=== PATIENT | male | born 1950 | race Caucasian/White ===

== ENCOUNTER → 2016-04-20 | Outpatient (CLI) | payer OTHER ==
--- NOTE | 2016-04-20 11:24 | US ---
Exam: LOWER EXTREMITY VENOUS INSUFFICIENCY DATE: 04/20/2016. HISTORY: 66-year-old male with venous insufficiency. TECHNIQUE: Duplex Doppler ultrasound examination of the bilateral lower extremities. FINDINGS: SIDE PERFORMED: Bilateral 1) Color flow is present and patency is documented in the following vessels. No DVT or SVT is noted . ? EIV ? Common Femoral Vein ? Deep Femoral Vein ? Femoral Vein ? Popliteal Vein ? Greater Saph Vein ? Upper Small Saph Vein 2) There is venous reflux noted at the following venous levels: None IMPRESSION: 1. No evidence for DVT in the bilateral lower extremities imaged from the groin to the knees. 2. No venous reflux along the imaged levels.
--- NOTE | 2016-04-25 11:00 | P.ARTDOP ---
Arterial Doppler LOWER EXTREMITY ARTERIAL DOPPLER: DATE OF SERVICE: 04/20/2016 Reason for study: Venous insufficiency. Doppler waveforms: Multiphasic bilaterally throughout. Pulse volume recording: Normal configuration to the ankle. Metatarsal and digit on the right are monophasic to flat line. Pressure gradients: None. Ankle-brachial indices: Greater than 1 bilaterally. Toe pressures: [] on the right, [] on the left Impression: Studies from the ankle and above. Are normal.
== END | disposition home or self-care (01) ==
LOC: RADUSWWP 08:48
PROVIDERS: ATTEND Physician Assistant
DX: I87.2 Venous insufficiency (chronic) (peripheral) (principal)
CPT/HCPCS: 93923; 93970

== ENCOUNTER → 2016-07-27 | Outpatient (CLI) | payer OTHER ==
[2016-07-27 13:25] LABS: ALT 33 U/L (21-72); AST 21 U/L (17-59); Alkaline Phosphatase 91 U/L (38-126); Anion Gap 10 mmol/L; Blood Urea Nitrogen 32 mg/dL (9-20); Calcium 8.8 mg/dL (8.4-10.2); Carbon Dioxide 28 mmol/L (22-30); Chloride 104 mmol/L (98-107); Glucose 172 mg/dL (74-99); Non-African American GFR(MDRD) 55 (>60 ml/min/1.73 sqM); Sodium 142 mmol/L (137-145); Total Bilirubin 0.5 mg/dL (0.2-1.3); Total Protein 6.9 g/dL (6.3-8.2)
== END | disposition home or self-care (01) ==
LOC: LABWHC1 12:23
PROVIDERS: ATTEND Internal Medicine Cardiovascular Disease
DX: I25.10 Atherosclerotic heart disease of native coronary artery without angina pectoris (principal); R55 Syncope and collapse
CPT/HCPCS: 36415; 80053; 83880

== ENCOUNTER 2016-08-11 06:46 | Inpatient (IN) | payer MEDICARE, OTHER ==
--- NOTE | 2016-08-11 07:40 | ED ---
General Adult HPI - General Chief complaint: Dizziness Stated complaint: Low heart rate Time Seen by Provider: 08/11/16 07:15 Source: patient, RN notes reviewed Mode of arrival: ambulatory Limitations: no limitations - History of Present Illness Initial comments: Is a 66-year-old male who presents to the emergency department complaining of being lightheaded over the last few days. Patient states he is also noted when he takes his blood pressure that is heart rate is been in the 40s which is something new for him. Patient states couple days ago he got lightheaded and fell over. Patient states she was uninjured at that time but he continues to have multiple episodes of lightheadedness. Patient denies any chest pain patient denies any palpitations. Patient denies sensing that is heart is slow. Patient denies any shortness of breath or difficulty breathing. Patient denies any headache patient denies numbness weakness. Patient denies any recent fever chills or cough. Patient denies any abdominal pain. Patient denies nausea vomiting or diarrhea. - Related Data Home Medications Medication Instructions Recorded Confirmed Unable To Assess [Unable to Assess] 08/23/14 07/02/15 Allergies Allergy/AdvReac Type Severity Reaction Status Date / Time No Known Allergies Allergy Verified 07/02/15 08:39 Review of Systems ROS Statement: Those systems with pertinent positive or pertinent negative responses have been documented in the HPI. ROS Other: All systems not noted in ROS Statement are negative. Past Medical History Past Medical History: Atrial Fibrillation, COPD, Diabetes Mellitus, Hyperlipidemia, Hypertension History of Any Multi-Drug Resistant Organisms: None Reported Past Surgical History: Appendectomy, Heart Catheterization With Stent Past Psychological History: No Psychological Hx Reported, PTSD Smoking Status: Current every day smoker Past Alcohol Use History: None Reported Past Drug Use History: None Reported General Exam - General Exam Comments Initial Comments: GENERAL: Patient is well-developed and well-nourished. Patient is nontoxic and well- hydrated and is in no acute distress. ENT: Neck is soft and supple. No significant lymphadenopathy is noted. Oropharynx is clear. Moist mucous membranes. Neck has full range of motion without eliciting any pain. EYES: The sclera were anicteric and conjunctiva were pink and moist. Extraocular movements were intact and pupils were equal round and reactive to light. Eyelids were unremarkable. PULMONARY: Unlabored respirations. Good breath sounds bilaterally. No audible rales rhonchi or wheezing was noted. CARDIOVASCULAR: Patient's heart rate is a 45 bpm ABDOMEN: Soft and nontender with normal bowel sounds. No palpable organomegaly was noted. There is no palpable pulsatile mass. SKIN: Skin is clear with no lesions or rashes and otherwise unremarkable. NEUROLOGIC: Patient is alert and oriented x3. Cranial nerves II through XII are grossly intact. Motor and sensory are also intact. Normal speech, volume and content. Symmetrical smile. MUSCULOSKELETAL: Normal extremities with adequate strength and full range of motion. No lower extremity swelling or edema. No calf tenderness. LYMPHATICS: No significant lymphadenopathy is noted PSYCHIATRIC: Normal psychiatric evaluation. Normal interpersonal interactions appears functionally intact in deals appropriately with others. No signs of depression. Limitations: no limitations Course Vital Signs 08/11/16 08/11/16 08/11/16 06:49 07:27 07:28 Temperature 97.6 F Pulse Rate 43 L 42 L Pulse Rate [ 42 L Wireless Architect ] Respiratory 18 18 Rate Blood Pressure 156/68 160/68 O2 Sat by Pulse 99 98 Oximetry 08/11/16 08:31 Temperature Pulse Rate 46 L Pulse Rate [ Wireless Architect ] Respiratory 18 Rate Blood Pressure 152/70 O2 Sat by Pulse 100 Oximetry Medical Decision Making - Medical Decision Making EKG shows sinus bradycardia with occasional PVC at 42 bpm [place] interval is 184 QRS is 106 QT interval 532 QTC is 444. His EKG shows some T-wave inversions in leads V4 V5 and V6 as well as 1 and aVL Patient's heart rate dipped down to 39 at times but he remained asymptomatic as long as he is lying in bed. I spoke with Dr. Dhillon and she agreed to admit the patient I consult to cardiology. - Lab Data Result diagrams: 08/11/16 07:25 08/11/16 07:25 Lab Results 08/11/16 08/11/16 08/11/16 Range/Units 07:25 07:25 07:25 WBC 9.3 (3.8-10.6) k/uL RBC 4.92 (4.30-5.90) m/uL Hgb 14.6 (13.0-17.5) gm/dL Hct 44.9 (39.0-53.0) % MCV 91.3 (80.0-100.0) fL MCH 29.7 (25.0-35.0) pg MCHC 32.6 (31.0-37.0) g/dL RDW 14.7 (11.5-15.5) % Plt Count 249 (150-450) k/uL Neutrophils % 75 % Lymphocytes % 17 % Monocytes % 6 % Eosinophils % 0 % Basophils % 0 % Neutrophils # 6.9 (1.3-7.7) k/uL Lymphocytes # 1.6 (1.0-4.8) k/uL Monocytes # 0.5 (0-1.0) k/uL Eosinophils # 0.0 (0-0.7) k/uL Basophils # 0.0 (0-0.2) k/uL PT (9.0-12.0) sec INR (<1.1) APTT (22.0-30.0) sec Sodium 142 (137-145) mmol/L Potassium 4.4 (3.5-5.1) mmol/L Chloride 105 (98-107) mmol/L Carbon Dioxide 26 (22-30) mmol/L Anion Gap 11 mmol/L BUN 33 H (9-20) mg/dL Creatinine 1.22 (0.66-1.25) mg/dL Est GFR (MDRD) Af Amer >60 (>60 ml/min/1.73 sqM) Est GFR (MDRD) Non-Af 59 (>60 ml/min/1.73 sqM) Glucose 76 (74-99) mg/dL Calcium 9.4 (8.4-10.2) mg/dL Magnesium 2.0 (1.6-2.3) mg/dL Total Bilirubin 0.7 (0.2-1.3) mg/dL AST 26 (17-59) U/L ALT 33 (21-72) U/L Alkaline Phosphatase 73 (38-126) U/L Total Creatine Kinase 65 (55-170) U/L CK-MB (CK-2) 0.9 (0.0-2.4) ng/mL CK-MB (CK-2) Rel Index 1.4 Troponin I <0.012 (0.000-0.034) ng/mL NT-Pro-B Natriuret Pep pg/mL Total Protein 7.4 (6.3-8.2) g/dL Albumin 4.1 (3.5-5.0) g/dL 08/11/16 08/11/16 Range/Units 07:25 07:25 WBC (3.8-10.6) k/uL RBC (4.30-5.90) m/uL Hgb (13.0-17.5) gm/dL Hct (39.0-53.0) % MCV (80.0-100.0) fL MCH (25.0-35.0) pg MCHC (31.0-37.0) g/dL RDW (11.5-15.5) % Plt Count (150-450) k/uL Neutrophils % % Lymphocytes % % Monocytes % % Eosinophils % % Basophils % % Neutrophils # (1.3-7.7) k/uL Lymphocytes # (1.0-4.8) k/uL Monocytes # (0-1.0) k/uL Eosinophils # (0-0.7) k/uL Basophils # (0-0.2) k/uL PT 27.2 H (9.0-12.0) sec INR 2.8 (<1.1) APTT 31.3 H (22.0-30.0) sec Sodium (137-145) mmol/L Potassium (3.5-5.1) mmol/L Chloride (98-107) mmol/L Carbon Dioxide (22-30) mmol/L Anion Gap mmol/L BUN (9-20) mg/dL Creatinine (0.66-1.25) mg/dL Est GFR (MDRD) Af Amer (>60 ml/min/1.73 sqM) Est GFR (MDRD) Non-Af (>60 ml/min/1.73 sqM) Glucose (74-99) mg/dL Calcium (8.4-10.2) mg/dL Magnesium (1.6-2.3) mg/dL Total Bilirubin (0.2-1.3) mg/dL AST (17-59) U/L ALT (21-72) U/L Alkaline Phosphatase (38-126) U/L Total Creatine Kinase (55-170) U/L CK-MB (CK-2) (0.0-2.4) ng/mL CK-MB (CK-2) Rel Index Troponin I (0.000-0.034) ng/mL NT-Pro-B Natriuret Pep 449 pg/mL Total Protein (6.3-8.2) g/dL Albumin (3.5-5.0) g/dL Disposition Clinical Impression: Bradycardia Disposition: ADMITTED IP TO THIS HOSP Referrals: Suraj Wallace DO [Primary Care Provider] - 1-2 days Time of Disposition: 09:49
--- NOTE | 2016-08-11 08:04 | XR ---
EXAMINATION TYPE: XR chest 2V DATE OF EXAM: 08/11/2016 8:00 AM COMPARISON: 06/12/2013 HISTORY: 66-year-old male with chest pain TECHNIQUE: Frontal and lateral views FINDINGS: Heart is upper limits of normal in size. Aorta within normal limits. Perihilar densities and increase diffuse interstitial densities. No fracture consolidation or significant pleural effusion. IMPRESSION: Borderline heart size with increased perihilar and interstitial densities. Correlate for mild CHF paula hong bronchitis or atypical pneumonias.
[2016-08-11 08:10] LABS: Basophils % (A) 0 %; CH 29.5; CHCM 32.5; Eosinophils % (A) 0 %; HCT 44.9 % (39.0-53.0); HDW 2.51; HGB 14.6 gm/dL (13.0-17.5); Luc % (Auto) 2; Lymphocytes # (A) 1.6 k/uL (1.0-4.8); Lymphocytes % (A) 17 %; MCH 29.7 pg (25.0-35.0); MCHC 32.6 g/dL (31.0-37.0); MCV 91.3 fL (80.0-100.0); Mean Platelet Volume 7.8; Monocytes # (A) 0.5 k/uL (0-1.0); Monocytes % (A) 6 %; Neutrophils # (A) 6.9 k/uL (1.3-7.7); Neutrophils % (A) 75 %; RBC 4.92 m/uL (4.30-5.90); RDW 14.7 % (11.5-15.5); WBC 9.3 k/uL (3.8-10.6); WBC (Perox) 8.88
[2016-08-11 08:23] LABS: INR 2.8 (<1.1); Partial Thromboplastin Time 31.3 sec (22.0-30.0); Prothrombin Time 27.2 sec (9.0-12.0)
[2016-08-11 08:30] LABS: ALT 33 U/L (21-72); AST 26 U/L (17-59); Alkaline Phosphatase 73 U/L (38-126); Anion Gap 11 mmol/L; Blood Urea Nitrogen 33 mg/dL (9-20); Calcium 9.4 mg/dL (8.4-10.2); Carbon Dioxide 26 mmol/L (22-30); Chloride 105 mmol/L (98-107); Glucose 76 mg/dL (74-99); Non-African American GFR(MDRD) 59 (>60 ml/min/1.73 sqM); Sodium 142 mmol/L (137-145); Total Bilirubin 0.7 mg/dL (0.2-1.3); Total Protein 7.4 g/dL (6.3-8.2)
[2016-08-11 08:39] LABS: Potassium 4.4 mmol/L (3.5-5.1)
[2016-08-11 09:03] LABS: Creatine Kinase 65 U/L (55-170)
[2016-08-11 09:17] LABS: Creatine Kinase MB 0.9 ng/mL (0.0-2.4); Troponin I <0.012 ng/mL (0.000-0.034)
[2016-08-11] MEDS ORDERED: NITROGLYCERIN SL TABS 0.4 MG TAB SUBLINGUAL PRN (09:49)
[2016-08-11 10:44] LABS: Glucose,Whole Blood 54 mg/dL (75-99)
[2016-08-11 11:28] VITALS: BMI 27.3
[2016-08-11 11:30] LABS: Glucose,Whole Blood 65 mg/dL (75-99)
[2016-08-11 11:34] LABS: Creatine Kinase 58 U/L (55-170)
[2016-08-11 11:46] LABS: Creatine Kinase MB 0.9 ng/mL (0.0-2.4); Troponin I <0.012 ng/mL (0.000-0.034)
[2016-08-11 11:49] LABS: Glucose,Whole Blood 79 mg/dL (75-99)
--- NOTE | 2016-08-11 16:18 | P.HPIM ---
History of Present Illness H&P Date: 08/11/16 This is a 66-year-old gentleman with history of hypertension, diabetes mellitus Atrial fibrillation CAD comes in the hospital with intermittent complaints of lightheadedness. Patient does not is usually seen at the [facility] Patient apparently underwent a PCI/PTCA 2 years ago at the [facility]. Patient was started on metoprolol succinate 125 mg daily according to verbal report in the recent few weeks patient has had intermittent tachycardia and bradycardia heart rate into the 40s patient was referred to a work environment safety inspector in town for further workup. Patient apparently underwent a stress test over week ago which she was told it was negative Due to the heart rate being erratic with tachybradycardia syndrome a pacemaker was also discussed with him in the past Patient states that he has taken his medications yesterday morning this a.m. patient was lightheaded hence was brought into the emergency room No chest pain fevers chills urinary urgency frequency nausea vomiting or diarrhea is reported Review of Systems All systems: negative (Noted in HPI) Past Medical History Past Medical History: Atrial Fibrillation, COPD, Diabetes Mellitus, Hyperlipidemia, Hypertension History of Any Multi-Drug Resistant Organisms: None Reported Past Surgical History: Appendectomy, Heart Catheterization With Stent Past Anesthesia/Blood Transfusion Reactions: No Reported Reaction Date of Last Stent Placement:: 3 STENTS LAST ONE ABOUT 2 YEARS AGO AT [facility]" Past Psychological History: No Psychological Hx Reported, PTSD Smoking Status: Current every day smoker Past Alcohol Use History: None Reported Past Drug Use History: None Reported - Past Family History Mother Family Medical History: Congestive Heart Failure (CHF) Medications and Allergies Home Medications Medication Instructions Recorded Confirmed Type Amiodarone [Cordarone] 200 mg PO DAILY 08/11/16 08/11/16 History Atorvastatin [Lipitor] 80 mg PO HS 08/11/16 08/11/16 History Clopidogrel [Plavix] 75 mg PO DAILY 08/11/16 08/11/16 History Hydrochlorothiazide [Hydrodiuril] 25 mg PO DAILY 08/11/16 08/11/16 History Insulin Glargine [Lantus] 25 unit SQ HS 08/11/16 08/11/16 History Lisinopril [Prinivil] 20 mg PO DAILY 08/11/16 08/11/16 History Metoprolol Succinate (ER) [Toprol 125 mg PO DAILY 08/11/16 08/11/16 History Xl] Warfarin Sodium [Coumadin] 2.5 mg PO MOTUTHFRSA 08/11/16 08/11/16 History Warfarin [Coumadin] 5 mg PO SUWE 08/11/16 08/11/16 History glipiZIDE [Glucotrol] 10 mg PO QID 08/11/16 08/11/16 History Allergies Allergy/AdvReac Type Severity Reaction Status Date / Time No Known Allergies Allergy Verified 08/11/16 13:32 Physical Exam Vitals: Vital Signs Temp Pulse Pulse Pulse Resp BP BP 08/11/16 12:33 41 L 44 L 16 149/79 08/11/16 10:56 97.4 F L 42 L 16 154/82 08/11/16 10:51 08/11/16 10:10 97.3 F L 45 L 18 132/61 08/11/16 08:31 46 L 18 152/70 08/11/16 07:28 42 L 08/11/16 07:27 42 L 18 160/68 08/11/16 06:49 97.6 F 43 L 18 156/68 Pulse Ox 08/11/16 12:33 93 L 08/11/16 10:56 95 08/11/16 10:51 95 08/11/16 10:10 100 08/11/16 08:31 100 08/11/16 07:28 08/11/16 07:27 98 08/11/16 06:49 99 Intake and Output 08/11/16 08/11/16 08/11/16 06:59 14:59 22:59 Intake Total 640 Balance 640 Intake: Oral 640 Other: # Voids 1 1 Weight 88.904 kg 88.9 kg Patient Weight 08/12/16 06:59 Weight 88.9 kg Physical exam Gen. appearance oriented 3 in no distress Neck is supple no JVD Lungs good air entry clear to auscultation no rhonchi or wheezing Heart S1-S2 heard no murmurs, bradycardic Abdomen is soft nontender no organomegaly bowel sounds are intact Neurologically cranial nerves II-12 grossly intact no focal motor or sensory deficits noted Skin no abnormalities appreciated Results CBC & Chem 7: 08/11/16 07:25 08/11/16 07:25 Labs: Abnormal Lab Results - Last 24 Hours (Table) 08/11/16 08/11/1617 Range/Units 07:25 07:25 10:40 PT 27.2 H (9.0-12.0) sec APTT 31.3 H (22.0-30.0) sec BUN 33 H (9-20) mg/dL POC Glucose (mg/dL) 54 L (75-99) mg/dL 08/11/16 Range/Units 11:20 PT (9.0-12.0) sec APTT (22.0-30.0) sec BUN (9-20) mg/dL POC Glucose (mg/dL) 65 L (75-99) mg/dL Thrombosis Risk Factor Assmnt - Choose All That Apply Each Factor Represents 1 point: Abnormal pulmonary function (COPD) Each Risk Factor Represents 2 Points: Age 61-74 years Thrombosis Risk Factor Assessment Total Risk Factor Score: 3 Thrombosis Risk Factor Assessment Level: Moderate Risk Assessment and Plan Plan: Tachybradycardia syndrome in a patient with atrial fibrillation #2 CAD per graph #3 diabetes mellitus type 2 #4 hypertension #5 history of tobacco use plan Hold off on amiodarone and metoprolol. Restart home medications. Cardiology consultation. Patient underwent recent stress test will defer to the work environment safety inspector in regards to timing of physical chamber pacemaker for tachybradycardia syndrome Repeat PT/INR We'll hold on Coumadin at this time
[2016-08-11] MEDS ORDERED: WARFARIN 5 MG TAB PO SCH (16:30)
[2016-08-11 16:41] LABS: Creatine Kinase 54 U/L (55-170)
[2016-08-11 16:43] LABS: Glucose,Whole Blood 122 mg/dL (75-99)
--- NOTE | 2016-08-11 16:50 | P.PCN ---
Preoperative Diagnosis: Impression Recurrent dizzy spells when he gets up and walks around in the morning. Denies any palpitations 1 episode of a fall and he does not remember if he actually had a syncopal spell or not. He does not remember the details of that event CAD status post coronary stenting almost 2 years back Ischemic cardio myopathy left ventricular ejection fraction 40% with inferior posterior hypokinesis Stress test did not show any evidence for ischemia or fixed defect was noted in the inferior wall Sinus bradycardia in the high 40s during the daytime while the patient is awake Patient is not orthostatic on examination Atrial fibrillation with RVR, treated with amiodarone in the [facility] in [place] currently on 200 mg a day On guideline directed medical treatment for cardiomyopathy with beta blockers and kaye inhibitors adult-onset diabetes him a on medical treatment Plan I had a detailed discussion with the patient regarding the differential diagnosis which includes orthostatic changes except extubated by the underlying diabetic condition and diabetic autonomic neuropathy, sick sinus syndrome and sinus bradycardia, presence of ischemic cardiac myopathy the left radical ejection fraction of 40% with inferior wall hypokinesis and PVCs on telemetry TSH level Reduce amiodarone dose to 100 mg a day Consider an EP study for risk stratification If ventricular tachycardia is inducible proceed with dual-chamber ICD If patient is noninducible for VT that her dual-chamber pacemaker but I would definitely still implant an ICD lead instead of a standard RV pacing lead, for future need for ICD See rest of the dictation separately Postoperative Diagnosis: Procedure(s) Performed: Implants: Indications for Procedure: Operative Findings: Description of Procedure:
[2016-08-11 16:54] LABS: Creatine Kinase MB 0.7 ng/mL (0.0-2.4); Troponin I <0.012 ng/mL (0.000-0.034)
[2016-08-11] MEDS: glipiZIDE 10 MG TAB PO SCH ×2 (17:13→21:00)
--- NOTE | 2016-08-11 17:19 | CONS ---
A 66-year-old male patient who presents with recurrent dizzy spells. The patient has been experiencing dizzy spells for some time. He may have had a fall, although he does not remember the details and may have had a syncopal spell in the past. He was told that he may need a pacemaker because sinus bradycardia was noted. He denies any chest discomfort. No heaviness, tightness. No breathing trouble. Past history of diabetes, adult-onset on medications; dyslipidemia, hypertension, coronary disease, inferior posterior VA, status post stenting 2 years back in the [facility], history of paroxysmal atrial fibrillation being treated with amiodarone for quite a few years from the [facility], history of CVA, history of carotid disease, waiting to see a vascular surgeon. REVIEW OF SYSTEMS: No fever, chills, rigors. No cough or expectoration. No nausea, vomiting or the diarrhea. No hematuria or dysuria. No strokes or seizures. No skin lesions or musculoskeletal complaints. His medications at home include: 1. Amiodarone 200 mg a day. 2. Aspirin 81 mg a day. 3. Atorvastatin. 4. Glipizide. 5. Plavix. 6. Warfarin. However, he states that he takes only Plavix and warfarin and does not take aspirin. 7. He is on metoprolol succinate 125 mg p.o. daily. 8. Lisinopril 20 mg daily and 9. Hydrochlorothiazide 25 mg daily. On examination, his blood pressure is 137/72 mmHg. He is not orthostatic. Heart rate is as low as 42 beats a minute while awake. Afebrile, 97.4 degrees Fahrenheit. Head and neck are normal. Heart sounds are normal. Lungs are clear on auscultation. Extremities are warm. No edema. A 2-D echo from the office shows normal RV size and function, mildly dilated left atrium, left ventricular ejection fraction of 40%, inferoposterior hypokinesis. Stress test shows fixed defects in the inferolateral segment with a prior infarct without any reversible ischemia. PCP, impression and plan on a separate dictation.
[2016-08-11 20:56] LABS: Glucose,Whole Blood 109 mg/dL (75-99)
[2016-08-11] MEDS: ATORVASTATIN 80 MG TAB PO SCH (21:00)
[2016-08-11] MEDS: INSULIN GLARGINE 100 UNIT/ML 10 ML VIAL SQ SCH (21:00)
[2016-08-12 06:01] LABS: Glucose,Whole Blood 69 mg/dL (75-99)
[2016-08-12 06:20] LABS: Glucose,Whole Blood 94 mg/dL (75-99)
[2016-08-12 06:50] LABS: Basophils % (A) 0 %; CH 29.4; CHCM 32.4; Eosinophils # (A) 0.1 k/uL (0-0.7); Eosinophils % (A) 1 %; HCT 44.9 % (39.0-53.0); HDW 2.49; HGB 14.3 gm/dL (13.0-17.5); Luc # (Auto) 0.22; Luc % (Auto) 3; Lymphocytes # (A) 2.5 k/uL (1.0-4.8); Lymphocytes % (A) 31 %; MCHC 31.8 g/dL (31.0-37.0); MCV 91.3 fL (80.0-100.0); Mean Platelet Volume 7.8; Monocytes # (A) 0.6 k/uL (0-1.0); Monocytes % (A) 7 %; Neutrophils # (A) 4.9 k/uL (1.3-7.7); Neutrophils % (A) 59 %; RBC 4.92 m/uL (4.30-5.90); RDW 14.6 % (11.5-15.5); WBC 8.3 k/uL (3.8-10.6); WBC (Perox) 8.14
[2016-08-12 06:52] LABS: INR 2.9 (<1.1); Prothrombin Time 27.7 sec (9.0-12.0)
[2016-08-12 07:05] LABS: ALT 29 U/L (21-72); AST 22 U/L (17-59); Alkaline Phosphatase 71 U/L (38-126); Anion Gap 11 mmol/L; Blood Urea Nitrogen 29 mg/dL (9-20); Calcium 9.4 mg/dL (8.4-10.2); Carbon Dioxide 24 mmol/L (22-30); Chloride 107 mmol/L (98-107); Cholesterol 119 mg/dL (<200); Glucose 58 mg/dL (74-99); HDL Cholesterol 32 mg/dL (40-60); Non-African American GFR(MDRD) >60 (>60 ml/min/1.73 sqM); Potassium 4.6 mmol/L (3.5-5.1); Sodium 142 mmol/L (137-145); Total Bilirubin 0.7 mg/dL (0.2-1.3); Triglycerides 96 mg/dL (<150)
[2016-08-12] MEDS: glipiZIDE 10 MG TAB PO SCH ×4 (08:50→22:31)
[2016-08-12] MEDS: LISINOPRIL 20 MG TAB PO SCH (08:50)
[2016-08-12] MEDS: CLOPIDOGREL 75 MG TAB PO SCH (08:50)
[2016-08-12] MEDS ORDERED: ASPIRIN 325 MG TAB PO SCH (09:00)
[2016-08-12] MEDS: NICOTINE 14MG/24HR PATCH TRANSDERM SCH (11:56)
[2016-08-12 12:10] LABS: Glucose,Whole Blood 101 mg/dL (75-99)
--- NOTE | 2016-08-12 12:12 | PN ---
Mr. Olson is resting comfortably in bed. His heart rates have been in the high 40s and low 50s. He is afebrile, 96.5 degrees Fahrenheit. His blood pressure 136/65 mmHg, pulse ox is normal. He is resting comfortably in bed. We repeated his orthostatic several times and he has no evidence for orthostatic hypotension. Heart sounds are normal. Normal S1, normal S2. No murmur. No gallop. Breath sounds are normal. No rhonchi. No crackles. Abdomen was soft, nontender. Extremities are warm. No edema. IMPRESSION: 1. Recurrent dizzy spells, one prior episode of loss of consciousness. No evidence for orthostatic hypotension. Patient is diabetic. Documented sinus bradycardia in the high 40s and low 50s at rest while awake. 2. Ischemic cardiomyopathy, ejection fraction of 40%, inferior wall scar. 3. Paroxysmal atrial fibrillation with RVR. SUGGEST: He has paroxysmal atrial fibrillation. He also has sick sinus syndrome. He has had syncope and he has had recurrent dizzy spells. He is bradycardiac, but he also has ischemic cardiomyopathy. I had a very detailed discussion with the family members today. Yesterday I had a detailed discussion with the patient. Permanent pacemaker is indicated because of tachybrady syndrome and he has symptomatic sick sinus syndrome. However, he also is on amiodarone. I have reduced the dose of amiodarone to 100 mg p.o. daily. The complicating factor is his ischemic cardiomyopathy with ejection fraction of 40%. I will first perform an EP study. If he has inducible VT I will implant ICD instead. If he has no inducible VT I will implant a dual chamber pacemaker with the RV lead being an ICD lead.
[2016-08-12 12:19] LABS: Hemoglobin A1C 7.2 % (4.2-6.1)
[2016-08-12] MEDS ORDERED: WARFARIN 5 MG TAB PO SCH (16:16)
[2016-08-12 17:31] LABS: Glucose,Whole Blood 83 mg/dL (75-99)
--- NOTE | 2016-08-12 17:57 | P.PN ---
Subjective This is a 66-year-old gentleman with history of hypertension, diabetes mellitus Atrial fibrillation CAD comes in the hospital with intermittent complaints of lightheadedness. Patient does not is usually seen at the [facility] Patient apparently underwent a PCI/PTCA 2 years ago at the [facility]. Patient was started on metoprolol succinate 125 mg daily according to verbal report in the recent few weeks patient has had intermittent tachycardia and bradycardia heart rate into the 40s patient was referred to a mold sander in town for further workup. Patient apparently underwent a stress test over week ago which she was told it was negative Due to the heart rate being erratic with tachybradycardia syndrome a pacemaker was also discussed with him in the past Patient states that he has taken his medications yesterday morning this a.m. patient was lightheaded hence was brought into the emergency room No chest pain fevers chills urinary urgency frequency nausea vomiting or diarrhea is reported 08/12 states to be improved no lightheadedness is reported no other overnight events no additional complaints. Objective - Vital Signs Vital signs: Vital Signs Temp 97.3 F L 08/12/16 16:00 Pulse 40 L 08/12/16 16:00 Resp 18 08/12/16 16:00 BP 178/74 08/12/16 16:00 Pulse Ox 94 L 08/12/16 16:00 Intake & Output 08/11/16 08/12/16 08/12/16 18:59 06:59 18:59 Intake Total 760 20 510 Balance 760 20 510 Weight 88.9 kg 88 kg Intake: IV 20 30 0.9% NS FLUSH 20 10 Invasive Line 1 20 Oral [phone] Other: # Voids 1 1 2 - Constitutional General appearance: Present: no acute distress - EENT Eyes: Present: EOMI, PERRLA - Respiratory Respiratory: bilateral: CTA, negative: dullness, rales, rhonchi - Cardiovascular Rhythm: regular Heart sounds: normal: S1, S2 Abnormal Heart Sounds: Absent: systolic murmur - Gastrointestinal General gastrointestinal: Present: normal bowel sounds, soft. Absent: organomegaly - Neurologic Neurologic: Present: CNII-XII intact. Absent: focal deficits - Musculoskeletal Musculoskeletal: Present: gait normal - Psychiatric Psychiatric: Present: A&O x's 3, appropriate affect - Labs CBC & Chem 7: 08/12/16 05:54 08/12/16 05:54 Labs: Abnormal Lab Results - Last 24 Hours (Table) 08/11/16 08/12/16 08/12/16 Range/Units 20:54 05:54 05:54 PT 27.7 H (9.0-12.0) sec BUN 29 H (9-20) mg/dL Glucose 58 L (74-99) mg/dL POC Glucose (mg/dL) 109 H (75-99) mg/dL Hemoglobin A1c (4.2-6.1) % HDL Cholesterol 32 L (40-60) mg/dL 08/12/16 08/12/16 08/12/16 Range/Units 05:54 05:59 11:49 PT (9.0-12.0) sec BUN (9-20) mg/dL Glucose (74-99) mg/dL POC Glucose (mg/dL) 69 L 101 H (75-99) mg/dL Hemoglobin A1c 7.2 H (4.2-6.1) % HDL Cholesterol (40-60) mg/dL Assessment and Plan Plan: Tachybradycardia syndrome in a patient with atrial fibrillation #2 CAD per graph #3 diabetes mellitus type 2 #4 hypertension #5 history of tobacco use plan Cardiology consultation. Patient underwent recent stress test Ep study and possible dual chamber pacemaker for tachybradycardia syndrome khalif Repeat PT/INR We'll hold on Coumadin at this time
[2016-08-12 21:27] LABS: Glucose,Whole Blood 143 mg/dL (75-99)
[2016-08-12] MEDS: ATORVASTATIN 80 MG TAB PO SCH (22:31)
[2016-08-12] MEDS: INSULIN GLARGINE 100 UNIT/ML 10 ML VIAL SQ SCH (22:34)
[2016-08-13 06:40] LABS: INR 2.2 (<1.1); Prothrombin Time 21.5 sec (9.0-12.0)
[2016-08-13] MEDS: CLOPIDOGREL 75 MG TAB PO SCH (06:51)
[2016-08-13] MEDS: NICOTINE 14MG/24HR PATCH TRANSDERM SCH (09:36)
[2016-08-13] MEDS: LISINOPRIL 20 MG TAB PO SCH (09:36)
[2016-08-13 11:25] LABS: Glucose,Whole Blood 124 mg/dL (75-99)
[2016-08-13] MEDS ORDERED: ceFAZolin 1,000 MG in SODIUM CHLORIDE 0.9% IRRIGATIO 250 ML IRRIGATION ONE (13:00)
[2016-08-13] MEDS ORDERED: ceFAZolin 2 GM in SODIUM CHLORIDE 0.9% 100 ML IVPB ONE (14:00)
[2016-08-13 16:46] LABS: Glucose,Whole Blood 76 mg/dL (75-99)
--- NOTE | 2016-08-13 17:10 | P.PN ---
Subjective This is a 66-year-old gentleman with history of hypertension, diabetes mellitus Atrial fibrillation CAD comes in the hospital with intermittent complaints of lightheadedness. Patient does not is usually seen at the [facility] Patient apparently underwent a PCI/PTCA 2 years ago at the [facility]. Patient was started on metoprolol succinate 125 mg daily according to verbal report in the recent few weeks patient has had intermittent tachycardia and bradycardia heart rate into the 40s patient was referred to a float nurse in town for further workup. Patient apparently underwent a stress test over week ago which she was told it was negative Due to the heart rate being erratic with tachybradycardia syndrome a pacemaker was also discussed with him in the past Patient states that he has taken his medications yesterday morning this a.m. patient was lightheaded hence was brought into the emergency room No chest pain fevers chills urinary urgency frequency nausea vomiting or diarrhea is reported 08/12 states to be improved no lightheadedness is reported no other overnight events no additional complaints. 08/13 doing well no new overnight events Objective - Vital Signs Vital signs: Vital Signs Temp 96.1 F L 08/13/16 11:22 Pulse 114 H 08/13/16 11:22 Resp 18 08/13/16 11:22 BP 118/87 08/13/16 11:22 Pulse Ox 92 L 08/13/16 11:22 Intake & Output 08/12/16 08/13/16 08/13/16 18:59 06:59 18:59 Intake Total 510 690 Output Total 650 Balance 510 40 Intake: IV 30 50 0.9% NS FLUSH 10 30 Invasive Line 1 20 20 Oral 480 640 Output: Urine 650 Other: # Voids 2 1 3 - Constitutional General appearance: Present: no acute distress - EENT Eyes: Present: EOMI, PERRLA - Neck Neck: Present: normal ROM - Respiratory Respiratory: bilateral: CTA, negative: diminished, dullness, rales, rhonchi - Cardiovascular Rhythm: regular Heart sounds: normal: S1, S2 Abnormal Heart Sounds: Absent: systolic murmur - Gastrointestinal General gastrointestinal: Present: normal bowel sounds, soft. Absent: organomegaly - Neurologic Neurologic: Present: CNII-XII intact, focal deficits - Psychiatric Psychiatric: Present: A&O x's 3, appropriate affect - Labs CBC & Chem 7: 08/12/16 05:54 08/12/16 05:54 Labs: Abnormal Lab Results - Last 24 Hours (Table) 08/12/16 08/13/16 08/13/16 Range/Units 20:49 05:45 11:21 PT 21.5 H (9.0-12.0) sec POC Glucose (mg/dL) 143 H 124 H (75-99) mg/dL Assessment and Plan Plan: Tachybradycardia syndrome in a patient with atrial fibrillation #2 CAD per graph #3 diabetes mellitus type 2 #4 hypertension #5 history of tobacco use plan Ep study and possible dual chamber pacemaker for tachybradycardia syndrome khalif Repeat PT/INR moniter overnight await ep procedure
[2016-08-13] MEDS ORDERED: PROPOFOL 10 MG/ML 20 ML VIAL IV ONE (18:31)
[2016-08-13] MEDS ORDERED: MIDAZOLAM 2 MG/2 ML VIAL ONE (18:31)
[2016-08-13] MEDS ORDERED: fentaNYL (PF) 50 MCG/ML 2 ML AMP ONE (18:31)
[2016-08-13] MEDS ORDERED: HYDROmorphone (PF) 1 MG/ML ONE (18:31)
[2016-08-13] MEDS ORDERED: PHENYLEPHRINE-0.9% NACL SYG 1 MG/10 ML SYRINGE ONE (18:31)
[2016-08-13] MEDS ORDERED: diphenhydrAMINE 50 MG/ML 1 ML VIAL ONE (18:31)
[2016-08-13] MEDS ORDERED: SODIUM CHLORIDE 0.9% 1,000 ML IV ONE (18:57)
[2016-08-13] MEDS ORDERED: IODIXANOL 320 MG/ML 100 ML IV ONE (18:57)
[2016-08-13] MEDS ORDERED: LIDOCAINE 2% INJ 20 MG/ML SQ ONE (19:17)
[2016-08-13 20:03] LABS: Glucose,Whole Blood 68 mg/dL (75-99)
[2016-08-13] MEDS ORDERED: LIDOCAINE 1% INJ 10MG/ML (20 ML MDV) SQ ONE (20:08)
[2016-08-13 21:36] LABS: Glucose,Whole Blood 93 mg/dL (75-99)
[2016-08-13] MEDS ORDERED: ACETAMINOPHEN TAB 325 MG TAB PO PRN ×2 (21:56)
[2016-08-13] MEDS ORDERED: HYDROcodone/APAP 5-325MG 1 EACH TAB PO PRN (21:56)
[2016-08-13] MEDS ORDERED: ACETAMINOPHEN IV (For NPO) 1,000 MG in EMPTY BAG 1 BAG IVPB ONE (21:56)
[2016-08-13 21:57] LABS: Glucose,Whole Blood 96 mg/dL (75-99)
[2016-08-13] MEDS: glipiZIDE 10 MG TAB PO SCH ×2 (22:14→22:15)
[2016-08-13] MEDS: INSULIN GLARGINE 100 UNIT/ML 10 ML VIAL SQ SCH (22:16)
--- NOTE | 2016-08-13 22:46 | PCN ---
DATE OF PROCEDURE: Mr. Olson is a 66-year-old male patient with known ischemic cardiomyopathy, ejection fraction of 40%, with occasional PVCs, paroxysmal atrial fibrillation and sick sinus syndrome with bradycardia and dizzy spells. Heart rates in sinus rhythm are in the high 40s while awake. A dual-chamber pacemaker was clinically indicated, but in view of his ischemic cardiomyopathy and inferior wall scar, first an EP study was performed for risk stratification. The patient was brought to the EP lab in a fasting state. Written informed consent was obtained prior to the procedure. The right groin was prepped and draped as per protocol and 2 venous sheaths were placed in the right femoral vein. Via these, diagnostic catheters were placed in the high right atrium ( ) His bundle area and RV. The patient was in atrial fibrillation (organized atrial fibrillation). Catheters were placed in the His bundle. HV interval was 49 ms, QRS 110 ms, QT 333 ms. Burst stimulation was performed from the RV apex. At a pacing cycle length of 220 ms fast ventricular tachycardia with a cycle length of 255 ms was induced. Anti-tachycardia pacing failed to terminate the tachycardia and electrical cardioversion had to be performed to restore a supraventricular rhythm. He remained in atrial fibrillation. All catheters were removed and a decision was made to proceed with a dual-chamber ICD in view of his sick sinus syndrome, paroxysmal atrial fibrillation and easily inducible fast ventricular tachycardia with a right bundle branch block morphology and Q waves in the inferior leads as well as S waves in lead I and V6. Patient tolerated the procedure. FINAL RESULT: Diagnostic EP study revealing normal HV interval and very easily inducible fast ventricular tachycardia at a cycle length of 255 ms that was induced with burst stimulation. PROCEDURE #2: Dual-chamber ICD. The left pectoral area was prepped and draped per protocol. Lidocaine 1% was used for local anesthesia. Intravenous antibiotics were administered. An incision was made in the deltopectoral groove and carried down to the level of the pectoralis muscle. A subfascial pocket was made. Hemostasis was assured. The left axillary vein was accessed at 2 separate points under fluoroscopy, and via appropriate-sized introducer sheaths, 2 leads were positioned in the right heart. The atrial lead was a screw-in lead in the right atrial appendage, [address] [employer], model #2088TC, serial #[id number]. Patient was in atrial fibrillation ( ) at 3.3 mV, pacing impedance of 680 ohms, pacing threshold 0.5 v at 0.5 ms. The RV lead was a single-coil ICD lead positioned in the RV apex. The R waves were 12 mV, pacing impedance 960 ohms, pacing threshold 0.5 v at 0.5 ms. The sheaths were removed. The lead was secured to the underlying pectoralis fascia using 2 non-absorbable sutures. Pocket was irrigated with antibiotic solution. Leads were connected to the generator ([employer], model #KM0322-64S, serial #[id number]). The wound was closed in 3 layers and dressed per protocol after connecting to the generator. RESULT: Successful dual-chamber ICD implantation for symptomatic sick sinus syndrome with sinus bradycardia, tachybrady syndrome and easily inducible fast ventricular tachycardia that was not responsive to anti-tachycardia pacing. PLAN: Restart beta blockers. Stop amiodarone completely. LONG-TERM PLAN: The patient would benefit from VT ablation. He had very easily inducible ventricular tachycardia that was not responsive to anti-tachycardia pacing, and this was refractory to amiodarone. He has on amiodarone for years. Both his atrial fibrillation and fast ventricular tachycardia are refractory to amiodarone. I would suggest anticoagulation and rate control for paroxysmal atrial fibrillation and VT ablation for fast VT. This was discussed with the family, and they are agreeable to the plan.
[2016-08-14] MEDS: ATORVASTATIN 80 MG TAB PO SCH (01:04)
[2016-08-14] MEDS: ceFAZolin 2 GM in SODIUM CHLORIDE 0.9% 100 ML IVPB SCH ×4 (01:04→16:46)
[2016-08-14] MEDS: glipiZIDE 10 MG TAB PO SCH ×3 (01:04→14:50)
[2016-08-14 06:20] LABS: Glucose,Whole Blood 284 mg/dL (75-99)
[2016-08-14 07:02] LABS: INR 1.8 (<1.1); Prothrombin Time 17.5 sec (9.0-12.0)
--- NOTE | 2016-08-14 08:45 | XR ---
EXAMINATION TYPE: XR chest 2V DATE OF EXAM: 08/14/2016 7:09 AM COMPARISON: 08/11/2016 TECHNIQUE: PA and lateral views submitted. HISTORY: Lead placement FINDINGS: The lungs are clear and there is no pneumothorax, pleural effusion, or focal pneumonia. Double lead cardiac device seen with the proximal lead overlying the right atrium and distal lead overlying righ t ventricle. Hyperinflation suggests COPD and there is a coarsened interstitium which may represent chronic inters titial lung disease. Findings are stable. Hypertrophic change of the spine noted. Arthropathy of the shoulders. IMPRESSION: 1. Cardiac leads appearing in good position with no postprocedural complication.
[2016-08-14] MEDS ORDERED: METOPROLOL SUCCINATE (ER) 50 MG TAB.ER.24H PO SCH (09:00)
[2016-08-14] MEDS: CLOPIDOGREL 75 MG TAB PO SCH (09:09)
[2016-08-14] MEDS: NICOTINE 14MG/24HR PATCH TRANSDERM SCH (09:09)
--- NOTE | 2016-08-14 10:54 | ECHOF ---
Referral Reason:pericardium, aortic valve, lv MEASUREMENTS -------- HEIGHT: 182.9 cm WEIGHT: 88.0 kg BP: 117/82 IVSd: 1.2 cm (0.6 - 1.1) LVIDd: 5.1 cm (3.9 - 5.3) LVPWd: 1.3 cm (0.6 - 1.1) IVSs: 1.6 cm LVIDs: 4.0 cm LVPWs: 1.4 cm Ao Diam: 3.5 cm (2.0 - 3.7) AV Cusp: 2.0 cm (1.5 - 2.6) LA Diam: 3.3 cm (2.7 - 3.8) MV EXCURSION: 14.577 mm (> 18.000) MV EF SLOPE: 96 mm/s (70 - 150) EPSS: 1.7 cm MV E Jair: 0.96 m/s MV DecT: 121 ms MV A Jair: 0.31 m/s MV E/A Ratio: 3.15 RAP: 5.00 mmHg RVSP: 8.33 mmHg FINDINGS -------- Undetermined rhythm. AICD Pacemaker This was a technically difficult study with suboptimal views. There is mild concentric left ventricular hypertrophy. Overall left ventricular systolic function is mild-moderately impaired with, an EF between 40 - 45 %. Inferiorlateral Hypokinesis The right ventricle is normal in size and function. The left atrium is normal in size. The right atrium is normal in size. 1.5mg of Definity was utilized for enhancement of images The aortic valve is trileaflet and appears structurally normal. There is trace mitral regurgitation. Trace tricuspid regurgitation present. The right ventricular systolic pressure, as measured by Doppler, is 8.33mmHg. The pulmonic valve was not well visualized. The aortic root, ascending aorta and aortic arch are normal. There is a small, generalized pericardial effusion present. CONCLUSIONS -------- 1. Undetermined rhythm. 2. The right atrium is normal in size. 3. 1.5mg of Definity was utilized for enhancement of images 4. The aortic valve is trileaflet and appears structurally normal. 5. There is trace mitral regurgitation. 6. Trace tricuspid regurgitation present. 7. The right ventricular systolic pressure, as measured by Doppler, is 8.33mmHg. 8. The pulmonic valve was not well visualized. 9. The aortic root, ascending aorta and aortic arch are normal. 10. There is a small, generalized pericardial effusion present. 11. AICD 12. Pacemaker 13. This was a technically difficult study with suboptimal views. 14. There is mild concentric left ventricular hypertrophy. 15. Overall left ventricular systolic function is mild-moderately impaired with, an EF between 40 - 45 %. 16. Inferiorlateral Hypokinesis 17. The right ventricle is normal in size and function. 18. The left atrium is normal in size. [employer]: Lashay Ely RDCS
[2016-08-14 11:53] VITALS: TEMP 96
--- NOTE | 2016-08-14 13:25 | P.PN ---
Progress Note - Text Patient is doing well. No dizziness lightheadedness he does have some tenderness over the ICD site. No chest pain other than a discomfort around the ICD site Slight swelling over the ICD site blood pressure 120/71 mmHg Blood pressure has been normal since yesterday. Heart sounds are normal he did breath sounds are normal no rhonchi no crackles ICD site is mildly tender very slightly swollen abdomen is soft nontender extremities are warm no edema Impression Sick sinus syndrome, symptomatic with dizziness No evidence for orthostatic hypotension on multiple measurements Atrial fibrillation, paroxysmal, refractory to amiodarone CAD, ischemic cardio myopathy, inferior lateral NC, left ventricular ejection fraction 40% Very easily inducible fast ventricular tachycardia at 235 beats a minute right bundle morphology exiting inferior laterally Dual-chamber ICD implantation yesterday Aortic valve is normal no LV thrombus, echo states mild generalized pericardial effusion but I don't appreciate this Suggest Hold Coumadin for 5 days and follow-up. Device clinic this Saturday follow Dr. Fitzgerald Consider repeat 2-D echo as an outpatient to assess pericardium after restarting Coumadin Increase metoprolol 150 mg by mouth daily No amiodarone Consider Aldactone Maximize heart failure medications including metoprolol This gentleman has very easily inducible ventricular tachycardia despite amiodarone. I have discussed this with the family and the patient. I would recommend an EP study and VT ablation electively after the ICD heals. I will schedule this procedure for him Rate control and anticoagulation for paroxysmal atrial fibrillation if possible at this time
[2016-08-14] MEDS ORDERED: METOPROLOL SUCCINATE (ER) 100 MG TAB.ER.24H PO ONE (15:15)
--- NOTE | 2016-08-14 15:53 | P.DS ---
Providers Date of admission: 08/11/16 09:49 Attending physician: Martina Dhillon Consults: 08/11/16 09:49 Consult Physician Urgent Consulting Provider: [facility] Consult Reason/Comments: Bradycardia Do you want consulting provider notified?: Yes Primary care physician: [facility] Course: This is a 66-year-old gentleman with history of hypertension, diabetes mellitus Atrial fibrillation CAD comes in the hospital with intermittent complaints of lightheadedness. Patient does not is usually seen at the [facility] Patient apparently underwent a PCI/PTCA 2 years ago at the [facility]. Patient was started on metoprolol succinate 125 mg daily according to verbal report in the recent few weeks patient has had intermittent tachycardia and bradycardia heart rate into the 40s patient was referred to a instructional design consultant in town for further workup. Patient apparently underwent a stress test over week ago which she was told it was negative Due to the heart rate being erratic with tachybradycardia syndrome a pacemaker was also discussed with him in the past Patient states that he has taken his medications yesterday morning this a.m. patient was lightheaded hence was brought into the emergency room No chest pain fevers chills urinary urgency frequency nausea vomiting or diarrhea is reported 08/12 states to be improved no lightheadedness is reported no other overnight events no additional complaints. 08/13 doing well no new overnight events Objective - Vital Signs Vital signs: Vital Signs Temp 96.1 F L 08/13/16 11:22 Pulse 114 H 08/13/16 11:22 Resp 18 08/13/16 11:22 BP 118/87 08/13/16 11:22 Pulse Ox 92 L 08/13/16 11:22 Intake & Output 08/12/16 08/13/16 08/13/16 18:59 06:59 18:59 Intake Total 510 690 Output Total 650 Balance 510 40 Intake: IV 30 50 0.9% NS FLUSH 10 30 Invasive Line 1 20 20 Oral 480 640 Output: Urine 650 Other: # Voids 2 1 3 - Constitutional General appearance: Present: no acute distress - EENT Eyes: Present: EOMI, PERRLA - Neck Neck: Present: normal ROM - Respiratory Respiratory: bilateral: CTA, negative: diminished, dullness, rales, rhonchi - Cardiovascular Rhythm: regular Heart sounds: normal: S1, S2 Abnormal Heart Sounds: Absent: systolic murmur - Gastrointestinal General gastrointestinal: Present: normal bowel sounds, soft. Absent: organomegaly - Neurologic Neurologic: Present: CNII-XII intact, focal deficits - Psychiatric Psychiatric: Present: A&O x's 3, appropriate affect Assessment and Plan Plan: Tachybradycardia syndrome in a patient with atrial fibrillation. underwent ep study with vt easily provoked that needs vt ablation at a later date AICD /Pacemaker placement. #2 [facility] #3 diabetes mellitus type 2 #4 hypertension #5 history of tobacco use dc home on toprol xl 150mg dc amiodarone follow up with Dr Abbasi AICD site is appropriately tender to palpation Appears clean Plan - Discharge Summary New Discharge Prescriptions: Acetaminophen Tab [Tylenol] 650 mg PO Q6HR PRN #20 tab PRN Reason: Mild Pain Metoprolol Succinate (ER) [Toprol XL] 150 mg PO DAILY #30 tab Discharge Medication List Atorvastatin [Lipitor] 80 mg PO HS 08/11/16 [History] Clopidogrel [Plavix] 75 mg PO DAILY 08/11/16 [History] Hydrochlorothiazide [Hydrodiuril] 25 mg PO DAILY 08/11/16 [History] Insulin Glargine [Lantus] 25 unit SQ HS 08/11/16 [History] Lisinopril [Prinivil] 20 mg PO DAILY 08/11/16 [History] Warfarin Sodium [Coumadin] 2.5 mg PO MOTUTHFRSA 08/11/16 [History] Warfarin [Coumadin] 5 mg PO SUWE 08/11/16 [History] glipiZIDE [Glucotrol] 10 mg PO QID 08/11/16 [History] Acetaminophen Tab [Tylenol] 650 mg PO Q6HR PRN #20 tab 08/14/16 [Rx] Metoprolol Succinate (ER) [Toprol XL] 150 mg PO DAILY #30 tab 08/14/16 [Rx] Follow up Appointment(s)/Referral(s): Gonzalo Abbasi MD [STAFF PHYSICIAN] - 1 Week Suraj Wallace DO [Primary Care Provider] - 1-2 days Discharge Disposition: HOME SELF-CARE
[2016-08-14 16:16] VITALS: BP 121/83; PULSE 83; RESP 16
[2016-08-14 16:33] LABS: Glucose,Whole Blood 184 mg/dL (75-99)
[2016-08-14] MEDS ORDERED: WARFARIN 3 MG TAB PO SCH (18:00)
[2016-08-14] MEDS ORDERED: DEXTROSE 50%-WATER 50 ML SYRINGE IVP ONE (18:31)
[2016-08-15] MEDS ORDERED: METOPROLOL SUCCINATE (ER) 50 MG TAB.ER.24H PO SCH (09:00)
== END 2016-08-14 19:27 | disposition home or self-care (01) | DRG 227 ==
LOC: EC 06:46 → 6SEL 09:49
PROVIDERS: ADMIT Internal Medicine; ATTEND Internal Medicine
PROC: 02H63KZ Insertion of Defibrillator Lead into Right Atrium, Percutaneous Approach (ICD-10-PCS; 2016-08-13)
PROC: 4A023FZ Measurement of Cardiac Rhythm, Percutaneous Approach (ICD-10-PCS; 2016-08-13)
PROC: 4A0234Z Measurement of Cardiac Electrical Activity, Percutaneous Approach (ICD-10-PCS; 2016-08-13)
PROC: 0JH608Z Insertion of Defibrillator Generator into Chest Subcutaneous Tissue and Fascia, Open Approach (ICD-10-PCS; principal; 2016-08-13 17:30)
PROC: 02HK3KZ Insertion of Defibrillator Lead into Right Ventricle, Percutaneous Approach (ICD-10-PCS; 2016-08-13 17:30)
DX: I49.5 Sick sinus syndrome (principal); I47.2 Ventricular tachycardia; I48.0 Paroxysmal atrial fibrillation; I11.0 Hypertensive heart disease with heart failure; I50.9 Heart failure, unspecified; I25.10 Atherosclerotic heart disease of native coronary artery without angina pectoris; E78.5 Hyperlipidemia, unspecified; F17.200 Nicotine dependence, unspecified, uncomplicated; I25.2 Old myocardial infarction; J44.9 Chronic obstructive pulmonary disease, unspecified; I25.5 Ischemic cardiomyopathy; Z86.73 Personal history of transient ischemic attack (TIA), and cerebral infarction without residual deficits; Z98.61 Coronary angioplasty status; E11.9 Type 2 diabetes mellitus without complications; Z79.84 Long term (current) use of oral hypoglycemic drugs; Z79.02 Long term (current) use of antithrombotics/antiplatelets; Z79.01 Long term (current) use of anticoagulants; Z79.4 Long term (current) use of insulin; Z79.899 Other long term (current) drug therapy; Z82.49 Family history of ischemic heart disease and other diseases of the circulatory system
CPT/HCPCS: 33249; 36415; 71020; 80053; 80061; 82550; 82553; 83036; 83735; 83880; 84443; 84484; 85025; 85610; 85730; 93005; 93306; 93620; 99285

== ENCOUNTER 2017-04-15 16:17 | Inpatient (IN) | payer OTHER, MEDICARE ==
[2017-04-15 16:37] LABS: Anisocytosis Slight; Basophils # (A) 0.1 k/uL (0-0.2); Basophils % (A) 1 %; Eosinophils # (A) 0.1 k/uL (0-0.7); Eosinophils % (A) 1 %; HCT 45.4 % (39.0-53.0); HGB 13.6 gm/dL (13.0-17.5); Hypochromasia Marked; Lymphocytes # (A) 2.5 k/uL (1.0-4.8); Lymphocytes % (A) 23 %; MCH 27.6 pg (25.0-35.0); MCV 92.1 fL (80.0-100.0); Mean Platelet Volume 8.2; Monocytes # (A) 0.7 k/uL (0-1.0); Monocytes % (A) 6 %; Neutrophils # (A) 7.1 k/uL (1.3-7.7); Neutrophils % (A) 67 %; Platelet Count 268 k/uL (150-450); RBC 4.93 m/uL (4.30-5.90); RDW 16.8 % (11.5-15.5); WBC 10.6 k/uL (3.8-10.6)
[2017-04-15 16:52] LABS: ALT 40 U/L (21-72); AST 25 U/L (17-59); Albumin 3.9 g/dL (3.5-5.0); Alkaline Phosphatase 125 U/L (38-126); Anion Gap 10 mmol/L; Blood Urea Nitrogen 21 mg/dL (9-20); Calcium 9.1 mg/dL (8.4-10.2); Carbon Dioxide 25 mmol/L (22-30); Chloride 109 mmol/L (98-107); Glucose 231 mg/dL (74-99); Magnesium 2.1 mg/dL (1.6-2.3); Potassium 4.1 mmol/L (3.5-5.1); Sodium 144 mmol/L (137-145); Total Bilirubin 0.7 mg/dL (0.2-1.3); Total Protein 7.5 g/dL (6.3-8.2)
[2017-04-15 16:53] LABS: INR 2.6 (<1.2); Prothrombin Time 23.2 sec (9.0-12.0)
--- NOTE | 2017-04-15 17:09 | XR ---
EXAMINATION: XR chest 2V DATE AND TIME: 04/15/2017 5:00 PM ORDERING PROVIDER: Erasmo Robin MD CLINICAL INDICATION: difficulty breathing TECHNIQUE: PA and lateral COMPARISON 08/14/2016 DESCRIPTION: Dual lead AV cardiac pacemaker and EKG leads are noted. There is marked obscuration of the pulmonary vasculature by a fine reticular pattern throughout the l ungs bilaterally, with septal lines and with small pleural effusions, greater on the right. Cardiac s ilhouette size is normal. There are no abnormal gas collections. Bones and soft tissues are unremarkable. IMPRESSION: MARKEDLY-ADVANCED INTERSTITIAL PHASE PULMONARY EDEMA WITH SMALL BILATERAL PLEURAL EFFUSIONS GREATER O N THE RIGHT.
[2017-04-15 17:16] LABS: Creatine Kinase MB 1.4 ng/mL (0.0-2.4); Troponin I 0.014 ng/mL (0.000-0.034)
--- NOTE | 2017-04-15 18:12 | ED ---
SOB HPI - General Chief Complaint: Shortness of Breath Stated Complaint: SOB Time Seen by Provider: 04/15/17 16:17 Source: patient, EMS, RN notes reviewed Mode of arrival: EMS Limitations: no limitations - History of Present Illness Initial Comments: This is a 67-year-old male history of COPD who was brought in by EMS due to difficulty breathing. He states she's had source of breath for some time and get really bad over last several days he has exertional dyspnea and dyspnea at rest. He was sent here from his doctor's office due to the shortness of breath. He was noted have a elevated heart rate was variable. He is a family history of CHF and no personal history is currently a smoker. He was given 2 updrafts in route with some improvement. He states he has have some peripheral edema. MD Complaint: shortness of breath - Related Data Home Medications Medication Instructions Recorded Confirmed Atorvastatin [Lipitor] 80 mg PO HS 08/11/16 04/15/17 Insulin Glargine [Lantus] 25 unit SQ HS 08/11/16 04/15/17 Lisinopril [Prinivil] 20 mg PO DAILY 08/11/16 04/15/17 Warfarin Sodium [Coumadin] 2.5 mg PO SUTUWETHSA 08/11/16 04/15/17 Warfarin [Coumadin] 5 mg PO MOFR 08/11/16 04/15/17 glipiZIDE [Glucotrol] 20 mg PO BID 08/11/16 04/15/17 Digoxin [Digitek] 125 mcg PO SUMOTUTHFR 04/15/17 04/15/17 Metoprolol Succinate [Toprol XL] 200 mg PO DAILY 04/15/17 04/15/17 Allergies Allergy/AdvReac Type Severity Reaction Status Date / Time No Known Allergies Allergy Verified 04/15/17 16:47 Review of Systems ROS Statement: Those systems with pertinent positive or pertinent negative responses have been documented in the HPI. ROS Other: All systems not noted in ROS Statement are negative. Past Medical History Past Medical History: Atrial Fibrillation, COPD, Diabetes Mellitus, Hyperlipidemia, Hypertension History of Any Multi-Drug Resistant Organisms: None Reported Past Surgical History: Appendectomy, Heart Catheterization With Stent Past Anesthesia/Blood Transfusion Reactions: No Reported Reaction Date of Last Stent Placement:: 3 STENTS LAST ONE ABOUT 2 YEARS AGO AT [facility]" Past Psychological History: No Psychological Hx Reported, PTSD Smoking Status: Current every day smoker Past Alcohol Use History: None Reported Past Drug Use History: None Reported - Past Family History Mother Family Medical History: Congestive Heart Failure (CHF) General Exam - General Exam Comments Initial Comments: This is a well-developed well-nourished awake alert oriented times 3 male Limitations: no limitations General appearance: alert, in distress Head exam: Present: atraumatic, normocephalic, normal inspection Eye exam: Present: normal appearance, PERRL, EOMI. Absent: scleral icterus, conjunctival injection, periorbital swelling ENT exam: Present: normal exam, mucous membranes moist Neck exam: Present: normal inspection. Absent: tenderness, meningismus, lymphadenopathy Respiratory exam: Present: wheezes, rales, decreased breath sounds. Absent: respiratory distress, rhonchi, stridor Cardiovascular Exam: Present: tachycardia, irregular rhythm. Absent: systolic murmur, diastolic murmur, rubs, gallop, clicks GI/Abdominal exam: Present: soft, normal bowel sounds. Absent: distended, tenderness, guarding, rebound, rigid Extremities exam: Present: normal inspection, full ROM, normal capillary refill , pedal edema. Absent: tenderness, joint swelling, calf tenderness Back exam: Present: normal inspection Neurological exam: Present: alert, oriented X3, CN II-XII intact Psychiatric exam: Present: normal affect, normal mood Skin exam: Present: warm, dry, intact, normal color. Absent: rash Course Vital Signs 04/15/17 04/15/17 04/15/17 16:31 17:16 19:06 Temperature 97.0 F L Pulse Rate 142 H 128 H 129 H Respiratory 20 20 18 Rate Blood Pressure 157/116 153/93 156/92 O2 Sat by Pulse 91 L 96 96 Oximetry 04/15/17 19:42 Temperature Pulse Rate 94 Respiratory 18 Rate Blood Pressure 137/97 O2 Sat by Pulse 97 Oximetry - Reevaluation(s) Reevaluation #1: 04/15/17 20:32 Evaluation patient reveals some improvement in his aeration he still very short of breath however. Dyspneic his atrial fibrillation his improved spontaneously. He still in A. fib with a rate is more consistently below 100. Medical Decision Making - Medical Decision Making I did discuss findings with patient family members as well as with Sina jameson for Dr. Becker. Patient be admitted for evaluation of CHF and COPD exacerbation with hypoxemia. - Lab Data Result diagrams: 04/15/17 16:20 04/15/17 16:20 Lab Results 04/15/17 04/15/17 04/15/17 Range/Units 16:20 16:20 16:20 WBC 10.6 (3.8-10.6) k/uL RBC 4.93 (4.30-5.90) m/uL Hgb 13.6 (13.0-17.5) gm/dL Hct 45.4 (39.0-53.0) % MCV 92.1 (80.0-100.0) fL MCH 27.6 (25.0-35.0) pg MCHC 30.0 L (31.0-37.0) g/dL RDW 16.8 H (11.5-15.5) % Plt Count 268 (150-450) k/uL Neutrophils % 67 % Lymphocytes % 23 % Monocytes % 6 % Eosinophils % 1 % Basophils % 1 % Neutrophils # 7.1 (1.3-7.7) k/uL Lymphocytes # 2.5 (1.0-4.8) k/uL Monocytes # 0.7 (0-1.0) k/uL Eosinophils # 0.1 (0-0.7) k/uL Basophils # 0.1 (0-0.2) k/uL Hypochromasia Marked Anisocytosis Slight PT (9.0-12.0) sec INR (<1.2) APTT (22.0-30.0) sec Sodium 144 (137-145) mmol/L Potassium 4.1 (3.5-5.1) mmol/L Chloride 109 H (98-107) mmol/L Carbon Dioxide 25 (22-30) mmol/L Anion Gap 10 mmol/L BUN 21 H (9-20) mg/dL Creatinine 0.90 (0.66-1.25) mg/dL Est GFR (MDRD) Af Amer >60 (>60 ml/min/1.73 sqM) Est GFR (MDRD) Non-Af >60 (>60 ml/min/1.73 sqM) Glucose 231 H (74-99) mg/dL Calcium 9.1 (8.4-10.2) mg/dL Magnesium 2.1 (1.6-2.3) mg/dL Total Bilirubin 0.7 (0.2-1.3) mg/dL AST 25 (17-59) U/L ALT 40 (21-72) U/L Alkaline Phosphatase 125 (38-126) U/L Total Creatine Kinase 58 (55-170) U/L CK-MB (CK-2) 1.4 (0.0-2.4) ng/mL CK-MB (CK-2) Rel Index 2.4 Troponin I 0.014 (0.000-0.034) ng/mL NT-Pro-B Natriuret Pep pg/mL Total Protein 7.5 (6.3-8.2) g/dL Albumin 3.9 (3.5-5.0) g/dL 04/15/17 04/15/17 Range/Units 16:20 16:20 WBC (3.8-10.6) k/uL RBC (4.30-5.90) m/uL Hgb (13.0-17.5) gm/dL Hct (39.0-53.0) % MCV (80.0-100.0) fL MCH (25.0-35.0) pg MCHC (31.0-37.0) g/dL RDW (11.5-15.5) % Plt Count (150-450) k/uL Neutrophils % % Lymphocytes % % Monocytes % % Eosinophils % % Basophils % % Neutrophils # (1.3-7.7) k/uL Lymphocytes # (1.0-4.8) k/uL Monocytes # (0-1.0) k/uL Eosinophils # (0-0.7) k/uL Basophils # (0-0.2) k/uL Hypochromasia Anisocytosis PT 23.2 H (9.0-12.0) sec INR 2.6 H (<1.2) APTT 28.0 (22.0-30.0) sec Sodium (137-145) mmol/L Potassium (3.5-5.1) mmol/L Chloride (98-107) mmol/L Carbon Dioxide (22-30) mmol/L Anion Gap mmol/L BUN (9-20) mg/dL Creatinine (0.66-1.25) mg/dL Est GFR (MDRD) Af Amer (>60 ml/min/1.73 sqM) Est GFR (MDRD) Non-Af (>60 ml/min/1.73 sqM) Glucose (74-99) mg/dL Calcium (8.4-10.2) mg/dL Magnesium (1.6-2.3) mg/dL Total Bilirubin (0.2-1.3) mg/dL AST (17-59) U/L ALT (21-72) U/L Alkaline Phosphatase (38-126) U/L Total Creatine Kinase (55-170) U/L CK-MB (CK-2) (0.0-2.4) ng/mL CK-MB (CK-2) Rel Index Troponin I (0.000-0.034) ng/mL NT-Pro-B Natriuret Pep 4200 pg/mL Total Protein (6.3-8.2) g/dL Albumin (3.5-5.0) g/dL - EKG Data -: EKG Interpreted by Me (Atrial fibrillation rate currently is 98 QRS 102 QT since QTC of 366/467 no) - Radiology Data Radiology results: report reviewed (Review the imaging reveals evidence of congestive heart failure.), image reviewed Critical Care Time Critical Care Time: Yes Critical Care Time: 31 minutes of critical care time which includes monitoring the EMS run and discussed with paramedics history physical labs x-rays several reevaluation of the patient discussion with the main service admission orders and documentation of the above. Disposition Clinical Impression: Congestive heart failure, Acute exacerbation of chronic obstructive airways disease, Adult respiratory distress syndrome, Hypoxemia Disposition: ADMITTED IP TO THIS HOSP Condition: Stable Referrals: Suraj Wallace DO [Primary Care Provider] - 1-2 days
[2017-04-15] MEDS ORDERED: FUROSEMIDE 10 MG/ML 4 ML VIAL IV STA (19:13)
[2017-04-15] MEDS ORDERED: NITROGLYCERIN OINT 1 INCH/GM PACKET TOPICAL STA (19:13)
[2017-04-15] MEDS ORDERED: methylPREDNISolone SOD SUCCI 125 MG/2 ML VIAL IV STA (19:13)
--- NOTE | 2017-04-15 20:34 | ED ---
Medical Decision Making - Lab Data Result diagrams: 04/15/17 16:20 04/15/17 16:20 Lab Results 04/15/17 04/15/17 04/15/17 Range/Units 16:20 16:20 16:20 WBC 10.6 (3.8-10.6) k/uL RBC 4.93 (4.30-5.90) m/uL Hgb 13.6 (13.0-17.5) gm/dL Hct 45.4 (39.0-53.0) % MCV 92.1 (80.0-100.0) fL MCH 27.6 (25.0-35.0) pg MCHC 30.0 L (31.0-37.0) g/dL RDW 16.8 H (11.5-15.5) % Plt Count 268 (150-450) k/uL Neutrophils % 67 % Lymphocytes % 23 % Monocytes % 6 % Eosinophils % 1 % Basophils % 1 % Neutrophils # 7.1 (1.3-7.7) k/uL Lymphocytes # 2.5 (1.0-4.8) k/uL Monocytes # 0.7 (0-1.0) k/uL Eosinophils # 0.1 (0-0.7) k/uL Basophils # 0.1 (0-0.2) k/uL Hypochromasia Marked Anisocytosis Slight PT (9.0-12.0) sec INR (<1.2) APTT (22.0-30.0) sec Sodium 144 (137-145) mmol/L Potassium 4.1 (3.5-5.1) mmol/L Chloride 109 H (98-107) mmol/L Carbon Dioxide 25 (22-30) mmol/L Anion Gap 10 mmol/L BUN 21 H (9-20) mg/dL Creatinine 0.90 (0.66-1.25) mg/dL Est GFR (MDRD) Af Amer >60 (>60 ml/min/1.73 sqM) Est GFR (MDRD) Non-Af >60 (>60 ml/min/1.73 sqM) Glucose 231 H (74-99) mg/dL Calcium 9.1 (8.4-10.2) mg/dL Magnesium 2.1 (1.6-2.3) mg/dL Total Bilirubin 0.7 (0.2-1.3) mg/dL AST 25 (17-59) U/L ALT 40 (21-72) U/L Alkaline Phosphatase 125 (38-126) U/L Total Creatine Kinase 58 (55-170) U/L CK-MB (CK-2) 1.4 (0.0-2.4) ng/mL CK-MB (CK-2) Rel Index 2.4 Troponin I 0.014 (0.000-0.034) ng/mL NT-Pro-B Natriuret Pep pg/mL Total Protein 7.5 (6.3-8.2) g/dL Albumin 3.9 (3.5-5.0) g/dL 04/15/17 04/15/17 Range/Units 16:20 16:20 WBC (3.8-10.6) k/uL RBC (4.30-5.90) m/uL Hgb (13.0-17.5) gm/dL Hct (39.0-53.0) % MCV (80.0-100.0) fL MCH (25.0-35.0) pg MCHC (31.0-37.0) g/dL RDW (11.5-15.5) % Plt Count (150-450) k/uL Neutrophils % % Lymphocytes % % Monocytes % % Eosinophils % % Basophils % % Neutrophils # (1.3-7.7) k/uL Lymphocytes # (1.0-4.8) k/uL Monocytes # (0-1.0) k/uL Eosinophils # (0-0.7) k/uL Basophils # (0-0.2) k/uL Hypochromasia Anisocytosis PT 23.2 H (9.0-12.0) sec INR 2.6 H (<1.2) APTT 28.0 (22.0-30.0) sec Sodium (137-145) mmol/L Potassium (3.5-5.1) mmol/L Chloride (98-107) mmol/L Carbon Dioxide (22-30) mmol/L Anion Gap mmol/L BUN (9-20) mg/dL Creatinine (0.66-1.25) mg/dL Est GFR (MDRD) Af Amer (>60 ml/min/1.73 sqM) Est GFR (MDRD) Non-Af (>60 ml/min/1.73 sqM) Glucose (74-99) mg/dL Calcium (8.4-10.2) mg/dL Magnesium (1.6-2.3) mg/dL Total Bilirubin (0.2-1.3) mg/dL AST (17-59) U/L ALT (21-72) U/L Alkaline Phosphatase (38-126) U/L Total Creatine Kinase (55-170) U/L CK-MB (CK-2) (0.0-2.4) ng/mL CK-MB (CK-2) Rel Index Troponin I (0.000-0.034) ng/mL NT-Pro-B Natriuret Pep 4200 pg/mL Total Protein (6.3-8.2) g/dL Albumin (3.5-5.0) g/dL Disposition Clinical Impression: Congestive heart failure, Acute exacerbation of chronic obstructive airways disease, Adult respiratory distress syndrome, Hypoxemia, Rapid atrial fibrillation Disposition: ADMITTED IP TO THIS HOSP Condition: Stable Referrals: Suraj Wallace DO [Primary Care Provider] - 1-2 days
[2017-04-15] MEDS ORDERED: DIGOXIN 125 MCG TAB PO SCH (20:45)
[2017-04-15] MEDS: IPRATROPIUM-ALBUTEROL 3 ML NEB INHALATION SCH (21:15)
[2017-04-15] MEDS ORDERED: WARFARIN 5 MG TAB PO SCH (21:30)
[2017-04-15] MEDS ORDERED: INSULIN DETEMIR 100 UNIT/ML 10 ML VIAL SQ SCH (21:30)
[2017-04-15] MEDS: DIGOXIN 125 MCG TAB PO SCH (21:50)
[2017-04-15] MEDS: INSULIN ASPART 100 UNIT/ML 1 ML 10 ML VIAL SQ SCH (21:56)
[2017-04-15 21:59] LABS: Glucose,Whole Blood 163 mg/dL (75-99)
[2017-04-15] MEDS: ATORVASTATIN 80 MG TAB PO SCH (22:17)
[2017-04-15] MEDS: NITROGLYCERIN OINT 1 INCH/GM PACKET TOPICAL SCH (22:17)
[2017-04-15 22:41] VITALS: BMI 27.2
[2017-04-15] MEDS ORDERED: LEVOFLOXACIN 500MG-D5W PMX 500 MG in DEXTROSE/WATER 1 100ML.BAG IVPB SCH (23:00)
[2017-04-15] MEDS: FUROSEMIDE 10 MG/ML 4 ML VIAL IV SCH (23:23)
[2017-04-15] MEDS: methylPREDNISolone SOD SUCCI 125 MG/2 ML VIAL IV SCH (23:23)
[2017-04-15] MEDS: DILTIAZEM 125 MG in SODIUM CHLORIDE 0.9% 100 ML IV ONE (23:26)
[2017-04-16] MEDS: IPRATROPIUM-ALBUTEROL 3 ML NEB INHALATION SCH ×8 (00:48→21:27)
[2017-04-16 03:49] LABS: Basophils % (A) 0 %; Eosinophils % (A) 0 %; HCT 41.2 % (39.0-53.0); HGB 12.6 gm/dL (13.0-17.5); Hypochromasia Moderate; Lymphocytes # (A) 0.6 k/uL (1.0-4.8); Lymphocytes % (A) 8 %; MCH 27.7 pg (25.0-35.0); MCHC 30.7 g/dL (31.0-37.0); MCV 90.2 fL (80.0-100.0); Mean Platelet Volume 7.5; Monocytes # (A) 0.1 k/uL (0-1.0); Monocytes % (A) 1 %; Neutrophils # (A) 7.2 k/uL (1.3-7.7); Neutrophils % (A) 91 %; Platelet Count 268 k/uL (150-450); RBC 4.57 m/uL (4.30-5.90); RDW 15.4 % (11.5-15.5); WBC 7.9 k/uL (3.8-10.6)
[2017-04-16] MEDS: DILTIAZEM 125 MG in SODIUM CHLORIDE 0.9% 100 ML IV ONE (03:50)
[2017-04-16 03:52] LABS: INR 2.6 (<1.2); Prothrombin Time 23.6 sec (9.0-12.0)
[2017-04-16 04:03] LABS: Anion Gap 11 mmol/L; Blood Urea Nitrogen 25 mg/dL (9-20); Calcium 9.1 mg/dL (8.4-10.2); Carbon Dioxide 25 mmol/L (22-30); Chloride 105 mmol/L (98-107); Glucose 245 mg/dL (74-99); Potassium 3.9 mmol/L (3.5-5.1); Sodium 141 mmol/L (137-145)
[2017-04-16 05:52] LABS: Glucose,Whole Blood 233 mg/dL (75-99)
[2017-04-16] MEDS: glipiZIDE 10 MG TAB PO SCH ×2 (06:23→17:10)
[2017-04-16] MEDS: methylPREDNISolone SOD SUCCI 125 MG/2 ML VIAL IV SCH ×3 (06:24→15:01)
[2017-04-16] MEDS: INSULIN ASPART 100 UNIT/ML 1 ML 10 ML VIAL SQ SCH ×4 (06:24→21:20)
[2017-04-16] MEDS ORDERED: INSULIN DETEMIR 100 UNIT/ML 10 ML VIAL SQ SCH ×2 (06:41→17:49)
[2017-04-16] MEDS: DIGOXIN 125 MCG TAB PO SCH (08:07)
[2017-04-16] MEDS: METOPROLOL SUCCINATE (ER) 100 MG TAB.ER.24H PO SCH (08:07)
[2017-04-16] MEDS: NITROGLYCERIN OINT 1 INCH/GM PACKET TOPICAL SCH (08:08)
[2017-04-16] MEDS: FUROSEMIDE 10 MG/ML 4 ML VIAL IV SCH ×2 (08:08→15:02)
--- NOTE | 2017-04-16 08:37 | HP ---
HISTORY AND PHYSICAL DATE OF SERVICE: 04/15/2017. CHIEF COMPLAINTS: Shortness of breath and cough. HISTORY OF PRESENT ILLNESS: This 67-year-old gentleman with a past medical history of multiple medical problems including atrial fibrillation, COPD, diabetes mellitus, hypertension, hyperlipidemia being followed by Dr. Wallace in the outpatient setting complains of shortness of breath. The patient also had bilateral leg swelling also. The patient came to [facility] and the chest x-ray was taken. The chest x-ray showed evidence of evidence of CHF and as well as possible pneumonia. The patient admitted for further evaluation and treatment. There is no history of fever or rigors. No history of headache, loss of consciousness or seizures. PAST MEDICAL HISTORY: History of atrial fibrillation, COPD, diabetes mellitus, hypertension, hyperlipidemia, history of prostate disorder. MEDICATIONS: Medications prior to admission include; 1. Metoprolol 200 mg p.o. daily. 2. Digitek 125 mcg Saturday, Saturday, Saturday, , Saturday. 3. Glucotrol 20 mg p.o. b.i.d. 4. Coumadin 5 mg, Saturday and Saturday. 5. Coumadin 2.5 mg Saturday, Saturday, Saturday, , Saturday. 6. Prinivil 20 mg daily. 7. Lantus 25 subcu q.h.s. 8. Lipitor 80 mg q.h.s. ALLERGIES: Allergies are none. FAMILY HISTORY: History of CHF in the family. SOCIAL HISTORY: History of smoking. No history of alcohol. REVIEW OF SYSTEMS: ENT: No diminished hearing or diminished vision. CARDIOVASCULAR SYSTEM: As mentioned earlier. RESPIRATORY SYSTEM: As mentioned earlier. GI: No nausea. : No dysuria. NERVOUS SYSTEM: No numbness or weakness. ALLERGY/IMMUNOLOGY: No asthma. MUSCULOSKELETAL: As mentioned earlier. HEMATOLOGY/ONCOLOGY: As mentioned earlier. ENDOCRINE: As mentioned earlier. CONSTITUTIONAL: As mentioned earlier. DERMATOLOGY: Negative. RHEUMATOLOGY: Negative. PSYCHIATRY: As mentioned earlier. PHYSICAL EXAM: Patient is alert, oriented x3. Pulse is 117, blood pressure 116/68, respiratory 20, temperature 97.2, pulse ox 93% on 2 L. HEENT: Conjunctivae normal. Oral mucosa moist. Neck is no jugular venous distention. No carotid bruit. No lymph node enlargement. CARDIOVASCULAR: S1 and S2 muffled. No S3, no S4. RESPIRATORY: Breast sounds diminished at the bases. Bilateral scattered rhonchi and expiratory wheezing and crackles. ABDOMEN: Soft, nontender. No mass palpable. LEGS: No edema, no swelling. NERVOUS SYSTEM: Higher functions as mentioned earlier. Moves all 4 limbs. No focal deficits. LYMPHATICS: No lymphadenopathy of the neck, axillae or groin. SKIN: No ulcer, rash or bleeding. LABS: WBC 10.6, hemoglobin 13.6. INR is 2.6. Sodium 144. ASSESSMENT: 1. Congestive heart failure acute exacerbation. 2. Chronic obstructive pulmonary disease acute exacerbation with acute bilateral tracheobronchitis bronchopneumonia. 3. Acute hypoxic respiratory failure. 4. History of nicotine dependence. 5. History of atrial fibrillation. 6. Diabetes mellitus. 7. Hypertension. 8. Hyperlipidemia. RECOMMENDATIONS AND DISCUSSION: In this 67-year-old gentleman who presented with multiple complex medical issues , will monitor the patient closely. Continue the current medication, continue symptomatic treatment. Initiate diuretics and as well as bronchodilators and as well as empiric antibiotics. Otherwise steroids monitor closely, repeat labs. Cardiology and pulmonology consultations. Repeat labs will be ordered. Guarded prognosis because of the multiple complex medical issues and further recommendations to follow. A copy of dictation forwarded to Dr. Wallace who is the primary physician. See orders for further details. Prognosis guarded. The patient's influenza testing was done in the ER, which was found to be not done in the ER. I would recommend an influenza testing also. Once again, the prognosis guarded. Further recommendations to follow. MMODL / IJN: [id number] / [facility]ITAL[facility]her[facility]
[2017-04-16] MEDS ORDERED: LISINOPRIL 20 MG TAB PO SCH (09:00)
[2017-04-16] MEDS ORDERED: NICOTINE 21MG/24HR PATCH TRANSDERM STA (09:18)
[2017-04-16] MEDS ORDERED: DEXTROSE 5% IN WATER 100 ML with AMIODARONE 150 MG IV ONE (11:08)
--- NOTE | 2017-04-16 11:13 | P.CRDCN ---
History of Present Illness Consult date: 04/16/17 Requesting physician: Chitra Becker Consult reason: congestive heart failure Chief complaint: Shortness of breath History of present illness: This is a 67-year-old gentleman who follows regularly with Dr. Rodriguez in the office. He has a known history of coronary artery disease with prior myocardial infarction and stenting of the RCA, initial stenting was done in 2006 with 2 stents in the proximal RCA, latest was done in March 2015 with a stent to the mid RCA, this was done in [place]. Chronic persistent atrial fibrillation. Patient has history of prior CVA, He also has known ischemic cardiomyopathy with ventricular tachycardia, patient has a dual- chamber AICD. Patient also has history of hypertension, hyperlipidemia, diabetes. He presents to the hospital with symptoms of progressively worsening shortness of breath as well as palpitations and feeling his heart race fast. He states she's been experiencing symptoms over the past 3 weeks. According to the patient, he states that Dr. Rodriguez did increase his metoprolol dose recently, and started the patient on Lanoxin, however he continued to feel progressively worse. EKG shows atrial fibrillation with a rapid ventricular response. Chest x-ray shows markedly advanced interstitial pulmonary edema with small bilateral pleural effusions greater on the right. His blood pressure on arrival was 157/116 with a heart rate of 142, 91% on room air. Blood pressure this morning 122/70, heart rate 108, 91% on 2 L of oxygen. White blood cell count 7.9, hemoglobin 12.6, platelet count 268. INR 2.6. Sodium 141, potassium 3.9, BUN 25, creatinine 1.0. Troponins negative 2. BNP level 4200. Influenza A and B-. Patient was initiated on IV Lasix in the emergency room, he was also started on a Cardizem drip at 5 mg per hour. Patient was seen and examined this morning, he does state that he is feeling significantly better this morning, was able to get up in the shower without feeling too short of breath. He also states that the edema in his extremities has improved from admission here. Past Medical History Past Medical History: Atrial Fibrillation, COPD, Diabetes Mellitus, Hyperlipidemia, Hypertension, Prostate Disorder Additional Past Medical History / Comment(s): elevated prostate labs, fungal infection on bilat feet. History of Any Multi-Drug Resistant Organisms: None Reported Past Surgical History: Appendectomy, Heart Catheterization With Stent Past Anesthesia/Blood Transfusion Reactions: No Reported Reaction Date of Last Stent Placement:: 3 STENTS LAST ONE ABOUT 2 YEARS AGO AT THE [facility] Past Psychological History: No Psychological Hx Reported, PTSD Smoking Status: Current every day smoker Past Alcohol Use History: None Reported Past Drug Use History: None Reported - Past Family History Mother Family Medical History: Congestive Heart Failure (CHF) Medications and Allergies Home Medications Medication Instructions Recorded Confirmed Type Atorvastatin [Lipitor] 80 mg PO HS 08/11/16 04/15/17 History Insulin Glargine [Lantus] 25 unit SQ HS 08/11/16 04/15/17 History Lisinopril [Prinivil] 20 mg PO DAILY 08/11/16 04/15/17 History Warfarin Sodium [Coumadin] 2.5 mg PO SUTUWETHSA 08/11/16 04/15/17 History Warfarin [Coumadin] 5 mg PO MOFR 08/11/16 04/15/17 History glipiZIDE [Glucotrol] 20 mg PO BID 08/11/16 04/15/17 History Digoxin [Digitek] 125 mcg PO SUMOTUTHFR 04/15/17 04/15/17 History Metoprolol Succinate [Toprol XL] 200 mg PO DAILY 04/15/17 04/15/17 History Allergies Allergy/AdvReac Type Severity Reaction Status Date / Time No Known Allergies Allergy Verified 04/15/17 16:47 Physical Exam Vitals: Vital Signs Temp Pulse Pulse Resp BP BP Pulse Ox 04/16/17 08:55 108 H 04/16/17 08:40 108 H 04/16/17 08:00 98.8 F 110 H 20 122/69 91 L 04/16/17 04:55 90 L 04/16/17 04:52 114 H 04/16/17 04:43 120 H 04/16/17 04:00 97.1 F L 131 H 16 122/98 93 L 04/16/17 00:59 118 H 04/16/17 00:48 132 H 04/15/17 23:56 106 H 18 04/15/17 23:52 97.6 F 106 H 18 126/90 93 L 04/15/17 21:40 88 L 04/15/17 21:26 121 H 16 04/15/17 21:25 109 H 20 128/62 96 04/15/17 21:15 117 H 16 04/15/17 21:04 97.2 F L 113 H 20 116/68 93 L 04/15/17 19:42 94 18 137/97 97 04/15/17 19:06 129 H 18 156/92 96 04/15/17 17:16 128 H 20 153/93 96 04/15/17 16:31 97.0 F L 142 H 20 157/116 91 L Intake and Output 04/15/17 04/16/17 04/16/17 22:59 06:59 14:59 Intake Total 720 358 Balance 720 358 Intake: Oral 720 358 Other: Voiding Method Toilet Toilet # Voids 2 Weight 88.7 kg 88.7 kg 88.7 kg Patient Weight 04/17/17 06:59 Weight 88.7 kg PHYSICAL EXAMINATION: HEENT: Head is atraumatic, normocephalic. Pupils equal, round. Neck is supple. There is no elevated jugular venous pressure. HEART EXAMINATION: Heart S1 and S2 irregularly irregular CHEST EXAMINATION: Lungs reveal fine rales to bilateral bases with diminished air entry to the bases. ABDOMEN: Soft, nontender. Bowel sounds are heard. No organomegaly noted. EXTREMITIES:[ 2+ peripheral pulses with trace evidence of peripheral edema left leg greater than right NEUROLOGIC patient is awake, alert and oriented -3. . Results 04/16/17 03:20 04/16/17 03:20 Cardiac Enzymes 04/15/17 04/15/17 04/16/17 Range/Units 16:20 16:20 03:20 AST 25 (17-59) U/L CK-MB (CK-2) 1.4 (0.0-2.4) ng/mL Troponin I 0.014 <0.012 (0.000-0.034) ng/mL 04/16/17 Range/Units 08:27 AST (17-59) U/L CK-MB (CK-2) (0.0-2.4) ng/mL Troponin I <0.012 (0.000-0.034) ng/mL Coagulation 04/15/17 04/16/17 Range/Units 16:20 03:20 PT 23.2 H 23.6 H (9.0-12.0) sec APTT 28.0 (22.0-30.0) sec CBC 04/15/17 04/16/17 Range/Units 16:20 03:20 WBC 10.6 7.9 (3.8-10.6) k/uL RBC 4.93 4.57 (4.30-5.90) m/uL Hgb 13.6 12.6 L (13.0-17.5) gm/dL Hct 45.4 41.2 (39.0-53.0) % Plt Count 268 268 (150-450) k/uL Comprehensive Metabolic Panel 04/15/17 04/16/17 Range/Units 16:20 03:20 Sodium 144 141 (137-145) mmol/L Potassium 4.1 3.9 (3.5-5.1) mmol/L Chloride 109 H 105 (98-107) mmol/L Carbon Dioxide 25 25 (22-30) mmol/L BUN 21 H 25 H (9-20) mg/dL Creatinine 0.90 1.00 (0.66-1.25) mg/dL Glucose 231 H 245 H (74-99) mg/dL Calcium 9.1 9.1 (8.4-10.2) mg/dL AST 25 (17-59) U/L ALT 40 (21-72) U/L Alkaline Phosphatase 125 (38-126) U/L Total Protein 7.5 (6.3-8.2) g/dL Albumin 3.9 (3.5-5.0) g/dL Current Medications Generic Name Dose Route Start Last Admin Trade Name Freq PRN Reason Stop Dose Admin Albuterol/Ipratropium 3 ml 04/15/17 21:00 04/16/17 08:57 Duoneb 0.5 Mg-3 Mg/3 Ml Soln INHALATION Not Given Q3HR ELIZABETH Atorvastatin Calcium 80 mg 04/15/17 21:30 04/15/17 22:17 Lipitor PO 80 mg HS ELIZABETH Administration Digoxin 125 mcg 04/15/17 21:30 04/16/17 08:07 Lanoxin PO 125 mcg [id number] [facility]IZ[facility]ETH Administration Furosemide 40 mg 04/16/17 00:00 04/16/17 08:08 Lasix IV 40 mg Q8HR ELIZABETH Administration Glipizide 20 mg 04/16/17 07:30 04/16/17 06:23 Glucotrol PO 20 mg AC-BID ELIZABETH Administration Diltiazem HCl 125 mg/ Sodium 125 mls @ 5 mls/hr 04/15/17 19:14 04/16/17 03:50 Chloride IV 04/16/17 19:13 5 mg/hr .Q24H ONE 5 mls/hr 5 MG/HR Administration Levofloxacin 500 mg/ IV 100 mls @ 100 mls/hr 04/15/17 23:00 04/15/17 23:34 Solution IVPB 100 mls/hr Q24H ELIZABETH Administration Insulin Aspart 0 unit 04/15/17 21:00 04/16/17 06:24 Novolog SQ 3 unit ACHS [facility] Administration Protocol Insulin Detemir 25 unit 04/16/17 06:41 Levemir SQ HS [facility] Lisinopril 20 mg 04/16/17 09:00 04/16/17 08:07 Zestril PO 20 mg DAILY [facility] Administration Methylprednisolone Sodium Succinate 60 mg 04/16/17 00:00 04/16/17 06:24 Solu-Medrol IV 60 mg Q6HR [facility] Administration Metoprolol Succinate 200 mg 04/16/17 09:00 04/16/17 08:07 Toprol Xl PO 200 mg DAILY [facility] Administration Nitroglycerin 1 inch 04/15/17 22:00 04/16/17 08:08 Nitro-Bid Oint TOPICAL 1 inch QID [facility] Administration Warfarin Sodium 2.5 mg 04/16/17 18:00 Coumadin PO SUTUWETHSA [facility] Warfarin Sodium 5 mg 04/15/17 21:30 04/15/17 22:17 Coumadin PO 5 mg MoFr@1800 [facility] Administration Intake and Output 04/15/17 04/16/17 04/16/17 22:59 06:59 14:59 Intake Total 720 358 Balance 720 358 Intake: Oral 720 358 Other: Voiding Method Toilet Toilet # Voids 2 Weight 88.7 kg 88.7 kg 88.7 kg Patient Weight 04/17/17 06:59 Weight 88.7 kg 04/16/17 03:20 04/16/17 03:20 EKG Interpretations (text) EKG shows atrial fibrillation with a moderately rapid ventricular response Assessment and Plan Plan: Assessment and plan #1 systolic congestive heart failure acute on chronic #2 known history of coronary artery disease with prior RCA stenting #3 ischemic cardiomyopathy with prior AICD #4 chronic persistent atrial fibrillation on Coumadin for anticoagulation #5 hypertension #6 diabetes #7 hyperlipidemia Plan We will obtain an echocardiogram with Doppler study. Discontinue IV Cardizem. Start the patient on amiodarone. We will also discontinue the lisinopril, and initiate Entresto in 48 hours. Continue to monitor intake and output along with daily weights, daily lytes BUN and creatinine. DNP note has been reviewed, I agree with a documented findings and plan of care. Patient was seen and examined.
[2017-04-16 11:25] LABS: Glucose,Whole Blood 404 mg/dL (75-99)
[2017-04-16] MEDS: AMIODARONE 450 MG in DEXTROSE 5% IN WATER 250 ML IV SCH ×4 (11:56→21:22)
--- NOTE | 2017-04-16 12:22 | P.CNPUL ---
History of Present Illness Consult date: 04/16/17 Reason for consult: dyspnea History of present illness: a very pleasant 67-year-old male patient with known history of coronary artery disease with previous myocardial infarction and previous stenting of RCA in addition to history of chronic atrial fibrillation, sick sinus syndrome, congestion heart failure with mild impairment of the left and ejection fraction and he is status post dual-chamber AICD placement for history of ischemic cardiomyopathy and secondary ventricular tachycardia. The patient is a chronic smoker and continues to smoke half pack of cigarettes a day. He came into the hospital because of worsening shortness of breath and at the same time was found to be having some palpitation and irregular heartbeats. At that point he was identified to be in atrial fibrillation with rapid ventricular response. Chest x-ray showed CHF with increased interstitial markings bilaterally and small bilateral pleural effusions. The patient was also slightly hypertensive at time of admission with a pulse ox of 91% on room air. He was placed on oxygen at 2 L/m nasal cannula. He was placed on a Cardizem drip for rate control. He is to set up appointment of been negative and his BNP was 4200 and influenza A and B screen was negative. A pulmonary consultation was requested based on the above. I'm pleased to report this morning at the patient's heart rate is under better control. The patient is also diuresis with IV Lasix 40 mg every 8 hours. No chest pain. He has some limited congested cough without any significant sputum production. He is known to have COPD and he is not oxygen dependent. Review of Systems Constitutional: Reports fatigue, Reports weight gain Eyes: denies blurred vision, denies bulging eye, denies decreased vision Ears: deny: decreased hearing, ear discharge, earache Ears, nose, mouth and throat: Denies headache, Denies sore throat Cardiovascular: Reports decreased exercise tolerance, Reports dyspnea on exertion, Reports irregular heart beat, Reports paroxysmal nocturnal dyspnea, Reports rapid heart beat, Reports shortness of breath Respiratory: Reports cough, Reports dyspnea, Reports wheezing Gastrointestinal: Denies abdominal pain, Denies diarrhea, Denies nausea, Denies vomiting Genitourinary: Reports as per HPI Musculoskeletal: Denies myalgias Musculoskeletal: bilateral: ankle swelling, absent: ankle pain, ankle stiffness Integumentary: Denies pruritus, Denies rash Neurological: Denies numbness, Denies weakness Psychiatric: Reports as per HPI Endocrine: Denies fatigue, Denies weight change Hematologic/Lymphatic: Reports as per HPI Allergic/Immunologic: Reports as per HPI Past Medical History Past Medical History: Atrial Fibrillation, COPD, Diabetes Mellitus, Hyperlipidemia, Hypertension, Prostate Disorder Additional Past Medical History / Comment(s): corneal artery disease, previous myocardial infarction, previous coronary stenting involving the RCA in 2006 and 2015, ischemic cardiomyopathy with previous ventricular tachycardia, history of dual-chamber AICD placement, hypertension, hyperlipidemia, diabetes mellitus, sick sinus syndrome, COPD History of Any Multi-Drug Resistant Organisms: None Reported Past Surgical History: Appendectomy, Heart Catheterization With Stent Past Anesthesia/Blood Transfusion Reactions: No Reported Reaction Date of Last Stent Placement:: 3 STENTS LAST ONE ABOUT 2 YEARS AGO AT THE [facility] Past Psychological History: No Psychological Hx Reported, PTSD Smoking Status: Current every day smoker Past Alcohol Use History: None Reported Past Drug Use History: None Reported - Past Family History Mother Family Medical History: Congestive Heart Failure (CHF) Medications and Allergies Home Medications Medication Instructions Recorded Confirmed Type Atorvastatin [Lipitor] 80 mg PO HS 08/11/16 04/15/17 History Insulin Glargine [Lantus] 25 unit SQ HS 08/11/16 04/15/17 History Lisinopril [Prinivil] 20 mg PO DAILY 08/11/16 04/15/17 History Warfarin Sodium [Coumadin] 2.5 mg PO SUTUWETHSA 08/11/16 04/15/17 History Warfarin [Coumadin] 5 mg PO MOFR 08/11/16 04/15/17 History glipiZIDE [Glucotrol] 20 mg PO BID 08/11/16 04/15/17 History Digoxin [Digitek] 125 mcg PO SUMOTUTHFR 04/15/17 04/15/17 History Metoprolol Succinate [Toprol XL] 200 mg PO DAILY 04/15/17 04/15/17 History Allergies Allergy/AdvReac Type Severity Reaction Status Date / Time No Known Allergies Allergy Verified 04/15/17 16:47 Physical Exam Vitals: Vital Signs Temp Pulse Pulse Resp BP BP Pulse Ox 04/16/17 12:04 102 H 04/16/17 11:54 102 H 04/16/17 11:53 99 126/81 04/16/17 11:38 105 H 139/86 04/16/17 11:23 108 H 141/90 04/16/17 11:08 100 18 136/84 92 L 04/16/17 08:55 108 H 04/16/17 08:40 108 H 04/16/17 08:00 98.8 F 110 H 20 122/69 91 L 04/16/17 04:55 90 L 04/16/17 04:52 114 H 04/16/17 04:43 120 H 04/16/17 04:00 97.1 F L 131 H 16 122/98 93 L 04/16/17 00:59 118 H 04/16/17 00:48 132 H 04/15/17 23:56 106 H 18 04/15/17 23:52 97.6 F 106 H 18 126/90 93 L 04/15/17 21:40 88 L 04/15/17 21:26 121 H 16 04/15/17 21:25 109 H 20 128/62 96 04/15/17 21:15 117 H 16 04/15/17 21:04 97.2 F L 113 H 20 116/68 93 L 04/15/17 19:42 94 18 137/97 97 04/15/17 19:06 129 H 18 156/92 96 04/15/17 17:16 128 H 20 153/93 96 04/15/17 16:31 97.0 F L 142 H 20 157/116 91 L Intake and Output 04/15/17 04/16/17 04/16/17 22:59 06:59 14:59 Intake Total 720 358 Balance 720 358 Intake: Oral 720 358 Other: Voiding Method Toilet Toilet # Voids 2 Weight 88.7 kg 88.7 kg 88.7 kg Patient Weight 04/17/17 06:59 Weight 88.7 kg Gen. appearance is calm and comfortable likely distress. Head is atraumatic normocephalic. Neck shows mild JVDs and there is no significant goiter or neck masses. Lungs sounds are diminished and there is diffuse expiratory wheezes heard throughout the lung avalos bilaterally and some scattered rhonchi. Heart sounds are irregular S1 and S2 and there is no significant murmurs appreciated. Abdomen is soft and nontender there is no organomegaly. Extremities show diminished pulses and there is trace edema lower extremities bilaterally especially at the level of the ankles. There is no cyanosis or clubbing. Neurologically the patient is awake and alert and there is no focal neurological deficit. Psychiatric the patient is at appropriate mood and affect. Skin is within normal limits and there is no wounds or ulceration. Results - Laboratory Findings CBC and BMP: 04/16/17 03:20 04/16/17 03:20 PT/INR, D-dimer PT 23.6 sec (9.0-12.0) H 04/16/17 03:20 INR 2.6 (<1.2) H 04/16/17 03:20 Abnormal lab findings: Abnormal Labs 04/15/17 04/15/17 04/15/17 16:20 16:20 16:20 Hgb MCHC 30.0 L RDW 16.8 H Lymphocytes # PT 23.2 H INR 2.6 H Chloride 109 H BUN 21 H Glucose 231 H POC Glucose (mg/dL) 04/15/17 04/16/17 04/16/17 21:47 03:20 03:20 Hgb 12.6 L MCHC 30.7 L RDW Lymphocytes # 0.6 L PT 23.6 H INR 2.6 H Chloride BUN Glucose POC Glucose (mg/dL) 163 H 04/16/17 04/16/17 04/16/17 03:20 05:40 11:22 Hgb MCHC RDW Lymphocytes # PT INR Chloride BUN 25 H Glucose 245 H POC Glucose (mg/dL) 233 H 404 H - Diagnostic Findings Chest x-ray: image reviewed Assessment and Plan Plan: assessment 1 acute shortness of breath secondary to CHF exacerbation along with a underlying component of COPD 2 chronic atrial fibrillation with rapid ventricular response at time of admission which seems to be one of the main triggers for his decompensated heart failure. Currently on Cardizem drip for rate control 3 coronary artery disease with previous coronary intervention stenting of RCA 2006 and 2015 4 history of ischemic cardiomyopathy 5 history of ventricular tachycardia status post dual-chamber AICD placement 6 sick sinus syndrome 7 hypertension 8 hyperlipidemia 9 diabetes mellitus 10 smoker plan The priority is to control this patient's heart rate. Continue the Cardizem drip. The patient will be started also on amiodarone for rate control. The patient has also showed interest towards switching to Coumadin to an alternative oral anticoagulants and this will be left up to cardiology. Repeat echocardiogram. Continued with IV Lasix. Smoking cessation counseling was done. DuoNeb nebulized treatments around the clock regarding his COPD. Doubt pneumonia. We'll continue monitoring the electrolytes. We'll continue to follow.
[2017-04-16 16:33] LABS: Glucose,Whole Blood 327 mg/dL (75-99)
--- NOTE | 2017-04-16 17:58 | P.PN ---
Subjective Progress Note Date: 04/16/17 Progress note being dictated for Dr. Becker. Interval history: This is 67-year-old gentleman admitted with CHF, COPD exacerbation, acute bilateral tracheobronchitis, bronchopneumonia, acute hypoxic respiratory failure, atrial fibrillation and multiple other medical issues. Telemetry reporting atrial fibrillation up to the 150s. Cardizem drip discontinued, amiodarone drip initiated, anticoagulation adjusted to Xarelto. Diuresing on Lasix IV push. Maintained on nebulized bronchodilators, IV steroids. Blood sugars elevated. INR 2.6. Tested negative for influenza A and B. Objective - Vital Signs Vital signs: Vital Signs Temp 98.0 F 04/16/17 15:59 Pulse 98 04/16/17 16:19 Resp 20 04/16/17 16:00 BP 131/68 04/16/17 15:59 Pulse Ox 94 L 04/16/17 15:59 Intake & Output 04/15/17 04/16/17 04/16/17 18:59 06:59 18:59 Intake Total 720 530.074 Balance 720 530.074 Weight 89.811 kg 88.7 kg 88.7 kg Intake: Intake, IV Titration 172.074 Amount Amiodarone 450 mg In 172.074 Dextrose 5% in Water 250 ml @ 1 MG/MIN 34.53 mls/ hr IV .Q7H31M [facility] Rx#: [id number] Oral 720 358 Other: Voiding Method Toilet Toilet # Voids 2 1 - Exam PHYSICAL EXAM: VITAL SIGNS: As above GENERAL: Sitting up in bed, no acute distress HEENT: Conjunctivae normal. eyes normal. NECK: No JVD. No thyroid enlargement. No LNs CARDIOVASCULAR: S1, S2 muffled. No murmur RESPIRATION: Breath sounds diminished in the bases. Scattered rhonchi, crackles, expiratory wheezing ABDOMEN: Soft, nontender . No guarding. no masses palpable. Bowel sounds heard. LEGS: trace edema. no swelling PSYCHIATRY: Alert and oriented -3, mood and affect normal. NERVOUS SYSTEM: Cranial N 2-12 grossly normal. Moves all 4 limbs. Diffuse weakness No focal deficits. No sensory deficit. Skin: no ulcer no rash Joints: No active swelling. No inflammation. Lymphatic system. No LN neck axilla or groin. - Labs CBC & Chem 7: 04/16/17 03:20 04/16/17 03:20 Labs: Abnormal Lab Results - Last 24 Hours (Table) 04/15/17 04/16/17 04/16/17 Range/Units 21:47 03:20 03:20 Hgb 12.6 L (13.0-17.5) gm/dL MCHC 30.7 L (31.0-37.0) g/dL Lymphocytes # 0.6 L (1.0-4.8) k/uL PT 23.6 H (9.0-12.0) sec INR 2.6 H (<1.2) BUN (9-20) mg/dL Glucose (74-99) mg/dL POC Glucose (mg/dL) 163 H (75-99) mg/dL 04/16/17 04/16/17 04/16/17 Range/Units 03:20 05:40 11:22 Hgb (13.0-17.5) gm/dL MCHC (31.0-37.0) g/dL Lymphocytes # (1.0-4.8) k/uL PT (9.0-12.0) sec INR (<1.2) BUN 25 H (9-20) mg/dL Glucose 245 H (74-99) mg/dL POC Glucose (mg/dL) 233 H 404 H (75-99) mg/dL 04/16/17 Range/Units 16:21 Hgb (13.0-17.5) gm/dL MCHC (31.0-37.0) g/dL Lymphocytes # (1.0-4.8) k/uL PT (9.0-12.0) sec INR (<1.2) BUN (9-20) mg/dL Glucose (74-99) mg/dL POC Glucose (mg/dL) 327 H (75-99) mg/dL Assessment and Plan Assessment: 1. Acute exacerbation CHF, systolic dysfunction. Ischemic cardiomyopathy with prior AICD 2. COPD, acute exacerbation with acute bilateral tracheobronchitis bronchopneumonia 3 acute hypoxic respiratory failure 4 nicotine dependence 5 atrial fibrillation, chronic, persistent, with RVR 6. Diabetes mellitus 7. Hypertension 8. Hyperlipidemia Plan: Continue on current medication regime ,monitoring and symptomatic treatment. Maintain nebulized bronchodilators, empiric antibiotics, steroids, diuretics. Follow closely with both cardiology and pulmonary. Ryanir insulin increased, pre-meal insulin added to med regime with Close monitoring of Accu- Cheks. Strict I&O. The impression and plan of care has been dictated as directed. : I performed a history and examination of this patient, discussed the same with the dictator. I agree with the dictator's note ,documented as a scribe. Any additional findings or plans will be noted.
[2017-04-16] MEDS ORDERED: WARFARIN 2.5 MG TAB PO SCH (18:00)
[2017-04-16 20:46] LABS: Glucose,Whole Blood 352 mg/dL (75-99)
[2017-04-16 20:49] VITALS: RESP 18
[2017-04-16] MEDS ORDERED: LEVOFLOXACIN 500 MG TAB PO SCH (21:00)
[2017-04-16] MEDS: ATORVASTATIN 80 MG TAB PO SCH (21:20)
[2017-04-17] MEDS ORDERED: methylPREDNISolone SOD SUCCI 125 MG/2 ML VIAL ONE
[2017-04-17] MEDS ORDERED: IPRATROPIUM-ALBUTEROL 3 ML NEB ONE
[2017-04-17] MEDS ORDERED: FUROSEMIDE 10 MG/ML 4 ML VIAL ONE
[2017-04-17] MEDS: IPRATROPIUM-ALBUTEROL 3 ML NEB INHALATION SCH ×4 (04:31→12:45)
[2017-04-17] MEDS: AMIODARONE 450 MG in DEXTROSE 5% IN WATER 250 ML IV SCH ×4 (04:48→11:54)
[2017-04-17] MEDS: methylPREDNISolone SOD SUCCI 125 MG/2 ML VIAL IV SCH ×2 (04:48→07:03)
[2017-04-17] MEDS: FUROSEMIDE 10 MG/ML 4 ML VIAL IV SCH ×2 (04:48→08:13)
[2017-04-17 06:54] LABS: Glucose,Whole Blood 272 mg/dL (75-99)
[2017-04-17] MEDS: INSULIN ASPART 100 UNIT/ML 1 ML 10 ML VIAL SQ SCH ×4 (07:03→12:05)
[2017-04-17] MEDS: glipiZIDE 10 MG TAB PO SCH (08:13)
[2017-04-17] MEDS: METOPROLOL SUCCINATE (ER) 100 MG TAB.ER.24H PO SCH (10:22)
[2017-04-17 11:47] LABS: Glucose,Whole Blood 288 mg/dL (75-99)
[2017-04-17 12:43] VITALS: BP 125/82; TEMP 97.6
[2017-04-17 12:50] VITALS: PULSE 96
--- NOTE | 2017-04-17 13:04 | ECHOF ---
Referral Reason: MEASUREMENTS -------- HEIGHT: 182.9 cm WEIGHT: 88.5 kg BP: IVSd: 1.1 cm (0.6 - 1.1) LVIDd: 5.3 cm (3.9 - 5.3) LVPWd: 1.0 cm (0.6 - 1.1) IVSs: 1.3 cm LVIDs: 4.4 cm LVPWs: 0.9 cm LAESV Index (A-L): 22.94 ml/m Ao Diam: 2.9 cm (2.0 - 3.7) AV Cusp: 1.8 cm (1.5 - 2.6) LA Diam: 3.4 cm (2.7 - 3.8) RAP: 5.00 mmHg RVSP: 11.70 mmHg FINDINGS -------- Atrial fibrillation. AICD Pacemaker This was a technically difficult study with suboptimal views. The left ventricular size is normal. Left ventricular wall thickness is normal. Overall left vent ricular systolic function is moderately impaired with, an EF between 35 - 40 %. Lateral hypokinesis Anterior is hypokinetic Inferoseptal is hypokinetic The right ventricle is normal in size. The left atrium is normal in size. The right atrium is normal in size. Lumason used The aortic valve is trileaflet, and appears structurally normal. No aortic stenosis or regurgitation. Mild mitral regurgitation is present. Mild tricuspid regurgitation present. The right ventricular systolic pressure, as measured by Doppl er, is 11.70mmHg. Pulmonic valve appears structurally normal. The aortic root size is normal. The pericardium is normal. CONCLUSIONS -------- 1. Atrial fibrillation. 2. AICD 3. Pacemaker 4. This was a technically difficult study with suboptimal views. 5. The left ventricular size is normal. 6. Left ventricular wall thickness is normal. 7. Overall left ventricular systolic function is moderately impaired with, an EF between 35 - 40 %. 8. Lateral hypokinesis 9. Anterior is hypokinetic 10. Inferoseptal is hypokinetic 11. The right ventricle is normal in size. 12. The left atrium is normal in size. 13. The right atrium is normal in size. 14. Lumason used 15. The aortic valve is trileaflet, and appears structurally normal. No aortic stenosis or regurgitat ion. 16. Mild mitral regurgitation is present. 17. Mild tricuspid regurgitation present. 18. The right ventricular systolic pressure, as measured by Doppler, is 11.70mmHg. 19. Pulmonic valve appears structurally normal. 20. The aortic root size is normal. 21. The pericardium is normal. COMPUTER PROGRAMMER CHIEF: Lashay Ely RDCS
--- NOTE | 2017-04-17 13:05 | P.PN ---
Subjective Progress Note Date: 04/17/17 Principal diagnosis: CHF This is a 67-year-old gentleman who follows regularly with Dr. Rodriguez in the office. He has a known history of coronary artery disease with prior myocardial infarction and stenting of the RCA, initial stenting was done in 2006 with 2 stents in the proximal RCA, latest was done in March 2015 with a stent to the mid RCA, this was done in [place]. Chronic persistent atrial fibrillation. Patient has history of prior CVA, He also has known ischemic cardiomyopathy with ventricular tachycardia, patient has a dual- chamber AICD. Patient also has history of hypertension, hyperlipidemia, diabetes. He presents to the hospital with symptoms of progressively worsening shortness of breath as well as palpitations and feeling his heart race fast. He states she's been experiencing symptoms over the past 3 weeks. According to the patient, he states that Dr. Rodriguez did increase his metoprolol dose recently, and started the patient on Lanoxin, however he continued to feel progressively worse. EKG shows atrial fibrillation with a rapid ventricular response. Chest x-ray shows markedly advanced interstitial pulmonary edema with small bilateral pleural effusions greater on the right. His blood pressure on arrival was 157/116 with a heart rate of 142, 91% on room air. Blood pressure this morning 122/70, heart rate 108, 91% on 2 L of oxygen. White blood cell count 7.9, hemoglobin 12.6, platelet count 268. INR 2.6. Sodium 141, potassium 3.9, BUN 25, creatinine 1.0. Troponins negative 2. BNP level 4200. Influenza A and B-. Patient was initiated on IV Lasix in the emergency room, he was also started on a Cardizem drip at 5 mg per hour. Patient was seen and examined this morning, he does state that he is feeling significantly better this morning, was able to get up in the shower without feeling too short of breath. He also states that the edema in his extremities has improved from admission here. 04/17/2017 Patient seen and examined this morning, feeling much better overall. Breathing is stable. Heart rate in the 80s, blood pressure 125/80. Weight down 1 kg today. Refusing blood draws today. Quite eager to be discharged. We will start the patient on oral amiodarone, and initiate oral diuretics. Patient is approved for Entresto which will be initiated tomorrow. Follow-up appointment will be made with Dr. Rodriguez in the office post discharge. Objective - Vital Signs Vital signs: Vital Signs Temp 97.6 F 04/17/17 12:39 Pulse 96 04/17/17 12:46 Resp 18 04/17/17 12:39 BP 125/82 04/17/17 12:39 Pulse Ox 95 04/17/17 12:39 Intake & Output 04/16/17 04/17/17 04/17/17 18:59 06:59 18:59 Intake Total 530.074 796.807 180 Balance 530.074 796.807 180 Weight 88.7 kg 87.6 kg Intake: Intake, IV Titration 172.074 76.807 Amount Amiodarone 450 mg In 172.074 76.807 Dextrose 5% in Water 250 ml @ 1 MG/MIN 34.53 mls/ hr IV .Q7H31M [facility] Rx#: [id number] Oral 358 720 180 Other: Voiding Method Toilet Toilet Toilet # Voids 1 3 - Exam PHYSICAL EXAMINATION: HEENT: Head is atraumatic, normocephalic. Pupils equal, round. Neck is supple. There is no elevated jugular venous pressure. HEART EXAMINATION: Heart S1 and S2 irregularly irregular CHEST EXAMINATION: Lungs reveal fine rales to bilateral bases with diminished air entry to the bases. ABDOMEN: Soft, nontender. Bowel sounds are heard. No organomegaly noted. EXTREMITIES:[ 2+ peripheral pulses with trace evidence of peripheral edema left leg greater than right NEUROLOGIC patient is awake, alert and oriented -3. - Labs CBC & Chem 7: 04/16/17 03:20 04/16/17 03:20 Labs: Abnormal Lab Results - Last 24 Hours (Table) 04/16/17 04/16/17 04/17/17 Range/Units 16:21 20:44 06:53 POC Glucose (mg/dL) 327 H 352 H 272 H (75-99) mg/dL 04/17/17 Range/Units 11:43 POC Glucose (mg/dL) 288 H (75-99) mg/dL Assessment and Plan Plan: Assessment and plan #1 systolic congestive heart failure acute on chronic #2 known history of coronary artery disease with prior RCA stenting #3 ischemic cardiomyopathy with prior AICD #4 chronic persistent atrial fibrillation on Coumadin for anticoagulation #5 hypertension #6 diabetes #7 hyperlipidemia Plan Echocardiogram with Doppler study remains pending. IV Lasix will be discontinued and patient will be started on oral diuretics. We will also initiate oral amiodarone.Entresto will be initiated tomorrow. Patient is quite eager to be discharged home. We will review the echo, he should be able to be discharged home today. We will make him a follow-up appointment to see Dr. Rodriguez in the office post discharge. DNP note has been reviewed, I agree with a documented findings and plan of care. Patient was seen and examined.
[2017-04-17] MEDS ORDERED: AMIODARONE 200 MG TAB PO SCH (13:15)
--- NOTE | 2017-04-17 15:31 | P.PN ---
<YoanaStephani - Last Filed: 04/17/17 15:23> Subjective Progress Note Date: 04/17/17 Principal diagnosis: Acute exacerbation of systolic congestive heart failure as well as an exacerbation of chronic obstructive pulmonary disease. A very pleasant 67-year-old male patient with known history of coronary artery disease with previous myocardial infarction and previous stenting of RCA in addition to history of chronic atrial fibrillation, sick sinus syndrome, congestion heart failure with mild impairment of the left and ejection fraction and he is status post dual-chamber AICD placement for history of ischemic cardiomyopathy and secondary ventricular tachycardia. The patient is a chronic smoker and continues to smoke half pack of cigarettes a day. He came into the hospital because of worsening shortness of breath and at the same time was found to be having some palpitation and irregular heartbeats. At that point he was identified to be in atrial fibrillation with rapid ventricular response. Chest x-ray showed CHF with increased interstitial markings bilaterally and small bilateral pleural effusions. The patient was also slightly hypertensive at time of admission with a pulse ox of 91% on room air. He was placed on oxygen at 2 L/m nasal cannula. He was placed on a Cardizem drip for rate control. He is to set up appointment of been negative and his BNP was 4200 and influenza A and B screen was negative. A pulmonary consultation was requested based on the above. I'm pleased to report this morning at the patient's heart rate is under better control. The patient is also diuresis with IV Lasix 40 mg every 8 hours. No chest pain. He has some limited congested cough without any significant sputum production. He is known to have COPD and he is not oxygen dependent. The patient is seen again today 04/17/2017 in follow-up on the selective care unit. He is awake and alert in no acute distress. He is breathing quite a bit better today as compared to yesterday. He is maintaining O2 saturations in the mid 90s on 2 L/m per nasal cannula. He's been afebrile. No chest pain, palpitations. He has been converted to oral amiodarone. He's been initiated on contrast ON Xarelto. He remains on Lasix 40 mg twice a day. Continued with bronchodilators and prednisone taper. He is on empiric and diuretics in the form of Levaquin. Objective - Vital Signs Vital signs: Vital Signs Temp 97.6 F 01/24/18 12:39 Pulse 96 04/17/17 12:58 Resp 18 04/17/17 12:39 BP 125/82 04/17/17 12:39 Pulse Ox 95 04/17/17 12:39 Intake & Output 04/16/17 04/17/17 04/17/17 18:59 06:59 18:59 Intake Total 530.074 796.807 360 Balance 530.074 796.807 360 Weight 88.7 kg 87.6 kg Intake: Intake, IV Titration 172.074 76.807 Amount Amiodarone 450 mg In 172.074 76.807 Dextrose 5% in Water 250 ml @ 1 MG/MIN 34.53 mls/ hr IV .Q7H31M [facility] Rx#: [id number] Oral 358 720 360 Other: Voiding Method Toilet Toilet Toilet # Voids 1 3 3 - Exam Gen. appearance is calm and comfortable likely distress. Head is atraumatic normocephalic. Neck shows mild JVDs and there is no significant goiter or neck masses. Lungs sounds are diminished and there is diffuse expiratory wheezes heard throughout the lung avalos bilaterally and some scattered rhonchi. Heart sounds are irregular S1 and S2 and there is no significant murmurs appreciated. Abdomen is soft and nontender there is no organomegaly. Extremities show diminished pulses and there is trace edema lower extremities bilaterally especially at the level of the ankles. There is no cyanosis or clubbing. Neurologically the patient is awake and alert and there is no focal neurological deficit. Psychiatric the patient is at appropriate mood and affect. Skin is within normal limits and there is no wounds or ulceration. - Labs CBC & Chem 7: 04/16/17 03:20 04/16/17 03:20 Labs: Abnormal Lab Results - Last 24 Hours (Table) 04/16/17 04/16/17 04/17/17 Range/Units 16:21 20:44 06:53 POC Glucose (mg/dL) 327 H 352 H 272 H (75-99) mg/dL 04/17/17 Range/Units 11:43 POC Glucose (mg/dL) 288 H (75-99) mg/dL Assessment and Plan Assessment: assessment 1 acute shortness of breath secondary to acute exacerbation of systolic congestive heart failure in addition to an acute exacerbation of chronic obstructive pulmonary disease. 2 chronic atrial fibrillation with rapid ventricular response at time of admission which seems to be one of the main triggers for his decompensated heart failure. Transition to oral amiodarone. Anticoagulated with Xarelto. 3 coronary artery disease with previous coronary intervention stenting of RCA 2006 and 2015 4 history of ischemic cardiomyopathy with estimated ejection fraction 35-40%. Initiated on Entresto. 5 history of ventricular tachycardia status post dual-chamber AICD placement 6 sick sinus syndrome 7 hypertension 8 hyperlipidemia 9 diabetes mellitus 10 smoker plan The patient was seen and evaluated by Dr. Marie. He is cleared for discharge from the pulmonary standpoint. Cardiology is on the case regarding rate control and anticoagulants. He is again educated regarding the importance of complete smoking cessation. He will follow-up in our office in 1-2 weeks' time. He and his family are all encouraged to call sooner with any recurrence of symptoms or other questions or concerns. I, the cosigning physician, performed a history & physical examination of the patient. Lungs sounds have faint crackles in the posterior bases, faint end expiratory wheeze. Diminished.. Maintaining good O2 saturations in the 90s on 2 L/m per nasal cannula. I discussed the assessment and plan of care with my nurse practitioner, Stephani Lees. I attest to the above note as dictated by her. <Amish Marie - Last Filed: 04/17/17 18:08> Objective - Vital Signs Vital signs: Vital Signs Temp 97.6 F 04/17/17 12:39 Pulse 96 04/17/17 12:58 Resp 18 04/17/17 12:39 BP 125/82 04/17/17 12:39 Pulse Ox 95 04/17/17 12:39 Intake & Output 04/16/17 04/17/17 04/17/17 18:59 06:59 18:59 Intake Total 530.074 796.807 360 Balance 530.074 796.807 360 Weight 88.7 kg 87.6 kg Intake: Intake, IV Titration 172.074 76.807 Amount Amiodarone 450 mg In 172.074 76.807 Dextrose 5% in Water 250 ml @ 1 MG/MIN 34.53 mls/ hr IV .Q7H31M [facility] Rx#: [id number] Oral 358 720 360 Other: Voiding Method Toilet Toilet Toilet # Voids 1 3 3 - Labs CBC & Chem 7: 04/16/17 03:20 04/16/17 03:20 Labs: Abnormal Lab Results - Last 24 Hours (Table) 04/16/17 04/17/17 04/17/17 Range/Units 20:44 06:53 11:43 POC Glucose (mg/dL) 352 H 272 H 288 H (75-99) mg/dL Assessment and Plan Assessment: Joint evaluation along with the nurse practitioner. Much improved compared to yesterday. We'll wean the steroids. From the cardiac standpoint, the patient was started on Entresto and then to coagulation was switched to Xarelto.
[2017-04-17] MEDS ORDERED: FUROSEMIDE 40 MG TAB PO SCH (16:00)
[2017-04-17] MEDS ORDERED: RIVAROXABAN 10 MG TAB PO SCH (17:30)
[2017-04-17] MEDS ORDERED: SACUBITRIL/VALSARTAN 24 MG-26 MG TABLET PO SCH (21:00)
--- NOTE | 2017-04-18 08:39 | DS ---
DISCHARGE SUMMARY DATE OF SERVICE: 04/17/2017. FINAL DIAGNOSES: 1. Congestive heart failure acute exacerbation with acute on chronic systolic dysfunction with ischemic cardiomyopathy with ejection fraction 35-40%. 2. Chronic obstructive pulmonary disease acute exacerbation, acute purulent tracheobronchitis and bronchopneumonia. 3. Acute hypoxic respiratory failure secondary to #1 and 2. 4. History of nicotine dependence. 5. Atrial fibrillation chronic persistent with rapid ventricular rate. 6. Diabetes mellitus type 2. 7. Hypertension. 8. Hyperlipidemia. DISCHARGE DISPOSITION: The patient is discharged in stable condition with guarded prognosis: Total time taken 35 minutes. Discharge cleared by Pulmonary and Cardiology. HISTORY OF PRESENT ILLNESS: This 67-year-old gentleman with a past medical history of multiple medical problems was admitted with shortness of breath mostly due to congestive heart failure. Patient treated with diuretics and bronchodilators and antibiotics. Patient improved significantly. Dr. Marie and Cardiology saw the patient. Cardiology and Dr. Marie cleared the patient for discharge. EXAM: Vitals are stable. CARDIOVASCULAR: S1, S2. RESPIRATORY: A few scattered rhonchi. ABDOMEN: Soft. NERVOUS SYSTEM: No focal deficits. DISCHARGE ADVICE AND MEDICATIONS: 1. Diet cardiac. 2. Activity limited until followup. 3. Follow up with Dr. Wallace in 2-3 days. 4. Follow up with Cardiology and Dr. Marie as recommended. 5. Medications will be: Cordarone 200 mg p.o. b.i.d. 6. Lipitor 80 mg q.h.s. 7. Lasix 40 mg p.o. b.i.d. 8. Glucotrol 20 mg p.o. b.i.d. 9. Lantus 33 units subcu q.h.s. 10.Levaquin 500 mg q.h.s. for 5 days. 11.Toprol-XL 200 mg daily. 12.Prednisone 40 mg daily for 3 days, 30 for 3 days, 20 for 3 days, 10 for 3 days and then discontinue. 13.Xarelto 20 mg p.o. daily. 14.Entresto 1 p.o. b.i.d. That is . Once again, the patient is discharged in stable condition with guarded prognosis. MMODL / IJN: [id number] /
[2017-04-18] MEDS ORDERED: predniSONE 20 MG TAB PO SCH (09:00)
== END 2017-04-17 16:00 | disposition home or self-care (01) | DRG 291 ==
LOC: EC 16:17 → 6SEL 20:34
PROVIDERS: ADMIT Hospitalist; ATTEND Hospitalist
DX: I11.0 Hypertensive heart disease with heart failure (principal); J18.0 Bronchopneumonia, unspecified organism; J96.01 Acute respiratory failure with hypoxia; I48.1 Persistent atrial fibrillation; I48.2 Chronic atrial fibrillation; I49.5 Sick sinus syndrome; Z79.01 Long term (current) use of anticoagulants; J44.0 Chronic obstructive pulmonary disease with (acute) lower respiratory infection; J44.1 Chronic obstructive pulmonary disease with (acute) exacerbation; E11.9 Type 2 diabetes mellitus without complications; E78.5 Hyperlipidemia, unspecified; F17.210 Nicotine dependence, cigarettes, uncomplicated; I25.10 Atherosclerotic heart disease of native coronary artery without angina pectoris; I25.2 Old myocardial infarction; I25.5 Ischemic cardiomyopathy; I50.23 Acute on chronic systolic (congestive) heart failure; N42.9 Disorder of prostate, unspecified; F43.10 Post-traumatic stress disorder, unspecified; J20.9 Acute bronchitis, unspecified; Z79.4 Long term (current) use of insulin; Z79.899 Other long term (current) drug therapy; Z95.810 Presence of automatic (implantable) cardiac defibrillator; Z95.5 Presence of coronary angioplasty implant and graft; Z86.79 Personal history of other diseases of the circulatory system; Z86.73 Personal history of transient ischemic attack (TIA), and cerebral infarction without residual deficits; Z82.49 Family history of ischemic heart disease and other diseases of the circulatory system
CPT/HCPCS: 36415; 71046; 80048; 80053; 82550; 82553; 83735; 83880; 84484; 85025; 85610; 85730; 87502; 93005; 93306; 94640; 94760; 96374; 96375; 99285

== ENCOUNTER 2017-07-18 08:08 | Inpatient (IN) | payer OTHER, MEDICARE ==
[2017-07-18] MEDS ORDERED: SODIUM CHLORIDE 0.9% 1,000 ML IV STA (08:25)
--- NOTE | 2017-07-18 08:29 | ED ---
Dizziness HPI - General Chief Complaint: Dizziness Stated Complaint: Dizzy, Double Vision Time Seen by Provider: 07/18/17 08:20 Source: patient, family, RN notes reviewed, old records reviewed Mode of arrival: wheelchair Limitations: no limitations - History of Present Illness Initial Comments: This is a 67-year-old male history of A. fib with a pacemaker defibrillator also history of COPD and DE as well as stroke who presents with the onset yesterday morning of double vision and being off balance. He denies any headache blindness focal weakness was upper or lower extremities he is just not getting better no fevers chills nausea vomiting sweats no trauma reported. He is on Xarelto. No other modifying factors at this time. With respect to double vision he states it is up and down not [id number] television that he sees. MD Complaint: dizziness - Related Data Home Medications Medication Instructions Recorded Confirmed Atorvastatin [Lipitor] 80 mg PO HS 08/11/16 07/18/17 glipiZIDE [Glucotrol] 20 mg PO BID 08/11/16 07/18/17 Metoprolol Succinate [Toprol XL] 200 mg PO DAILY 04/15/17 07/18/17 Insulin Glargine [Lantus] 40 unit SQ HS 07/18/17 07/18/17 Sacubitril/Valsartan [Entresto 24 1 tab PO BID 07/18/17 07/18/17 mg-26 mg Tablet] Previous Rx's Medication Instructions Recorded Amiodarone [Cordarone] 200 mg PO BID #60 tab 04/17/17 Furosemide [Lasix] 40 mg PO BID@0900,1600 #60 tab 04/17/17 Rivaroxaban [Xarelto] 20 mg PO DAILY #30 tab 04/17/17 Allergies Allergy/AdvReac Type Severity Reaction Status Date / Time No Known Allergies Allergy Verified 07/18/17 09:06 Review of Systems ROS Statement: Those systems with pertinent positive or pertinent negative responses have been documented in the HPI. ROS Other: All systems not noted in ROS Statement are negative. Past Medical History Past Medical History: Atrial Fibrillation, COPD, Diabetes Mellitus, Hyperlipidemia, Hypertension, Prostate Disorder Additional Past Medical History / Comment(s): corneal artery disease, previous myocardial infarction, previous coronary stenting involving the RCA in 2006 and 2015, ischemic cardiomyopathy with previous ventricular tachycardia, history of dual-chamber AICD placement, hypertension, hyperlipidemia, diabetes mellitus, sick sinus syndrome, COPD History of Any Multi-Drug Resistant Organisms: None Reported Past Surgical History: Appendectomy, Heart Catheterization With Stent Past Anesthesia/Blood Transfusion Reactions: No Reported Reaction Date of Last Stent Placement:: 3 STENTS LAST ONE ABOUT 2 YEARS AGO AT THE [facility]" Past Psychological History: PTSD Smoking Status: Current every day smoker Past Alcohol Use History: None Reported Past Drug Use History: None Reported - Past Family History Mother Family Medical History: Congestive Heart Failure (CHF) General Exam - General Exam Comments Initial Comments: This is a well-developed well-nourished awake alert oriented 3 male Limitations: no limitations General appearance: alert, in no apparent distress Head exam: Present: atraumatic, normocephalic, normal inspection Eye exam: Present: normal appearance, PERRL, EOMI. Absent: scleral icterus, conjunctival injection, periorbital swelling ENT exam: Present: normal exam, mucous membranes moist Neck exam: Present: normal inspection, full ROM, other (No stridor JVD or bruits ). Absent: tenderness, meningismus, lymphadenopathy Respiratory exam: Present: decreased breath sounds. Absent: respiratory distress, wheezes, rales, rhonchi, stridor Cardiovascular Exam: Present: normal rhythm, bradycardia, normal heart sounds. Absent: systolic murmur, diastolic murmur, rubs, gallop, clicks GI/Abdominal exam: Present: soft, normal bowel sounds. Absent: distended, tenderness, guarding, rebound, rigid Extremities exam: Present: normal inspection, full ROM, normal capillary refill. Absent: tenderness, pedal edema, joint swelling, calf tenderness Back exam: Present: normal inspection Neurological exam: Present: alert, oriented X3, CN II-XII intact Psychiatric exam: Present: normal affect, normal mood Skin exam: Present: warm, dry, intact, normal color. Absent: rash Course Vital Signs 07/18/17 07/18/17 07/18/17 08:10 09:00 09:30 Temperature 98.0 F Pulse Rate 55 L 49 L 48 L Respiratory 20 18 16 Rate Blood Pressure 164/71 169/97 169/75 O2 Sat by Pulse 99 97 98 Oximetry 07/18/17 10:25 Temperature Pulse Rate 48 L Respiratory 16 Rate Blood Pressure 145/68 O2 Sat by Pulse 100 Oximetry EKG Findings - EKG Results: EKG: interpreted by ERMD (Pacemaker rhythm of 5246 QRS 108 QT since QTC of 520/ 474) Medical Decision Making - Medical Decision Making The patient persists in having any double vision. Patient will be admitted for evaluation and did discuss the case with Dr. Becker. - Lab Data Result diagrams: 07/18/17 08:25 07/18/17 08:25 Lab Results 07/18/17 07/18/17 07/18/17 Range/Units 08:25 08:25 08:25 WBC 8.8 (3.8-10.6) k/uL RBC 5.67 (4.30-5.90) m/uL Hgb 16.1 (13.0-17.5) gm/dL Hct 49.1 (39.0-53.0) % MCV 86.6 (80.0-100.0) fL MCH 28.5 (25.0-35.0) pg MCHC 32.9 (31.0-37.0) g/dL RDW 15.8 H (11.5-15.5) % Plt Count 239 (150-450) k/uL Neutrophils % 66 % Lymphocytes % 25 % Monocytes % 6 % Eosinophils % 1 % Basophils % 0 % Neutrophils # 5.8 (1.3-7.7) k/uL Lymphocytes # 2.2 (1.0-4.8) k/uL Monocytes # 0.5 (0-1.0) k/uL Eosinophils # 0.1 (0-0.7) k/uL Basophils # 0.0 (0-0.2) k/uL Sodium 142 (137-145) mmol/L Potassium 3.7 (3.5-5.1) mmol/L Chloride 102 (98-107) mmol/L Carbon Dioxide 30 (22-30) mmol/L Anion Gap 10 mmol/L BUN 17 (9-20) mg/dL Creatinine 1.04 (0.66-1.25) mg/dL Est GFR (CKD-EPI)AfAm 85 (>60 ml/min/1.73 sqM) Est GFR (CKD-EPI)NonAf 74 (>60 ml/min/1.73 sqM) Glucose 87 (74-99) mg/dL Calcium 9.3 (8.4-10.2) mg/dL Magnesium 1.9 (1.6-2.3) mg/dL Total Bilirubin 0.7 (0.2-1.3) mg/dL AST 19 (17-59) U/L ALT 21 (21-72) U/L Alkaline Phosphatase 84 (38-126) U/L Total Creatine Kinase 49 L (55-170) U/L CK-MB (CK-2) 0.6 (0.0-2.4) ng/mL CK-MB (CK-2) Rel Index 1.2 Troponin I <0.012 (0.000-0.034) ng/mL Total Protein 7.2 (6.3-8.2) g/dL Albumin 4.2 (3.5-5.0) g/dL - Radiology Data Radiology results: report reviewed (I did review the imaging and reports no acute findings.), image reviewed Disposition Clinical Impression: CVA (cerebral vascular accident), Visual disturbance Disposition: ADMITTED IP TO [facility] Condition: Stable Referrals: [facility],Clinic [Primary Care Provider] - 1-2 days
[2017-07-18 08:42] LABS: Basophils % (A) 0 %; Eosinophils # (A) 0.1 k/uL (0-0.7); Eosinophils % (A) 1 %; HCT 49.1 % (39.0-53.0); HGB 16.1 gm/dL (13.0-17.5); Lymphocytes # (A) 2.2 k/uL (1.0-4.8); Lymphocytes % (A) 25 %; MCH 28.5 pg (25.0-35.0); MCHC 32.9 g/dL (31.0-37.0); MCV 86.6 fL (80.0-100.0); Mean Platelet Volume 7.9; Monocytes # (A) 0.5 k/uL (0-1.0); Monocytes % (A) 6 %; Neutrophils # (A) 5.8 k/uL (1.3-7.7); Neutrophils % (A) 66 %; Platelet Count 239 k/uL (150-450); RBC 5.67 m/uL (4.30-5.90); RDW 15.8 % (11.5-15.5); WBC 8.8 k/uL (3.8-10.6)
--- NOTE | 2017-07-18 08:58 | CT ---
EXAMINATION TYPE: CT brain wo con DATE OF EXAM: 07/18/2017 COMPARISON: 09/03/2010 INDICATION: Double Vision for 2 days DLP: 1108.4 mGycm, Automated exposure control for dose reduction was used. CONTRAST: None CT of the brain is performed utilizing 3 mm thick sections through the posterior fossa and 3 mm thick sections through the remaining calvarium. Study is performed within 24 hours of arrival to the hosp ital. No abnormal hyperdensity is present to suggest an acute intracranial hemorrhage. No mass lesion is evident. No acute infarcts are evident. There appears to be an old right occipital lobe infarct. This is a dora nge from 2010. Some mild periventricular white matter ischemic type changes are present. Ventricles and sulci are appropriate for the patient age. Some mucosal thickening is within the left maxillary sinus. Remaining paranasal sinuses are clear. Ma stoid air cells are clear. Right septal deviation and septal spurring is present. IMPRESSIONS: 1. 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 2. Chronic appearing white matter ischemic type changes. 3. No acute intracranial process.
[2017-07-18 09:00] LABS: Albumin 4.2 g/dL (3.5-5.0); Calcium 9.3 mg/dL (8.4-10.2); Magnesium 1.9 mg/dL (1.6-2.3); Potassium 3.7 mmol/L (3.5-5.1); Total Bilirubin 0.7 mg/dL (0.2-1.3); Total Protein 7.2 g/dL (6.3-8.2)
--- NOTE | 2017-07-18 09:06 | XR ---
EXAMINATION TYPE: XR chest 2V DATE OF EXAM: 07/18/2017 COMPARISON: 04/15/2017 HISTORY: History of COPD and persistent cough TECHNIQUE: Frontal and lateral views of the chest are obtained. FINDINGS: The previously seen interstitial edema has greatly improved in the interim but is at least mild on the lateral view. Dual lead left-sided cardiac device is again seen in combination with card iomegaly. There is no focal air space opacity, pleural effusion, or pneumothorax seen. The osseous st ructures are intact. There is moderate acromio clavicular arthropathy and mild multilevel degenerativ e changes of the thoracic spine are noted. IMPRESSION: Improved pulmonary edema that was marked on the exam of 04/15/2017 is now mild.
[2017-07-18 09:08] LABS: Creatine Kinase 49 U/L (55-170)
[2017-07-18 09:21] LABS: Creatine Kinase MB 0.6 ng/mL (0.0-2.4); Troponin I <0.012 ng/mL (0.000-0.034)
--- NOTE | 2017-07-18 16:58 | HP ---
HISTORY AND PHYSICAL DATE OF SERVICE: 07/18/2017 CHIEF COMPLAINT: Dizziness and double vision. HISTORY OF PRESENT ILLNESS: 67-year-old gentleman with a past medical history of multiple medical problems including history of COPD, CHF, history of atrial fibrillation, diabetes, hypertension being followed by Dr. Wallace in the outpatient setting, was complaining of double vision. The patient reported double vision on the vertical direction mostly and some double vision on the lateral gaze also. Patient admitted to the hospital further evaluation and treatment. Initial CT scan was normal. The patient also had evaluation of CBC, also within normal limits. There is no history of fever, rigors. No history any headache, loss of consciousness or seizures. Patient had previous strokes, but no residual weakness according to him. PAST MEDICAL HISTORY: History of atrial fibrillation, COPD, CVA, TIA, GI bleed, hypertension, hyperlipidemia, history of DJD, history of diabetes type 2, AICD, appendectomy, CAD stent. MEDICATIONS: Prior to admission include home medications are: 1. Entresto 24/26 p.o. b.i.d. 2. Lantus 40 mg subcu q.h.s. 3. Glucotrol 10 mg p.o. b.i.d. 4. Xarelto 20 mg p.o. daily. 5. Toprol-XL 20 mg. 6. Lasix 40 mg p.o. b.i.d. 7. Lipitor 80 mg. 8. Cordarone 200 mg p.o. b.i.d. ALLERGIES: None. FAMILY HISTORY: CHF in the family. SOCIAL HISTORY: History of smoking on a daily basis. History of alcohol intake. REVIEW OF SYSTEMS: ENT: As mentioned earlier. Cardiovascular System: No angina or palpitations. Respiratory: No cough, hemoptysis. GI no nausea or vomiting. no dysuria or retention. Nervous System: As mentioned earlier. Allergies/Immunology: No asthma or hayfever. Musculoskeletal as mentioned earlier. Hematology/Oncology: No history of anemia. Endocrine: Diabetes. CONSTITUTIONAL: As mentioned earlier. Dermatology: Negative. Rheumatology: Negative. Psychiatric: As mentioned earlier. PHYSICAL EXAMINATION: Alert, and oriented times three, pulse 49, blood pressure 120/56, respiration 20 , temperature 98.2, pulse ox 98% on 2 L. HEENT: Conjunctivae normal. Oral mucosa moist. Neck is no jugular venous distention. No carotid bruit. No lymph node enlargement. Cardiovascular: S1, S2 muffled. Slightly bradycardic. Ejection systolic murmur. Respiration: Breath sounds diminished in the bases. No rhonchi and no crackles. ABDOMEN: Soft, nontender. No mass palpable. Legs: No edema and no swelling. Nervous system: Mild diffuse weakness. Nystagmus on exam, but minimal nystagmus on exam and also mild diplopia also noted. Skin: No ulcer, rash or bleeding. Lymphatics: No lymph nodes palpable in the neck, axilla or groin. Joints: No active deforming arthropathy. LABS: EKG showed ST-T changes and paced rhythm with bradycardia rate of 50. Other labs are WBC 5.7, platelets of 239. ASSESSMENT: 1. Multiple symptomatology including dizziness, as well as diplopia possible acute transient ischemic attack. 2. Atrial fibrillation. 3. Bradycardia. 4. Chronic obstructive pulmonary disease. 5. Diabetes mellitus. 6. Gastrointestinal bleed. 7. Hypertension. 8. Hyperlipidemia. 9. Degenerative joint disease. 10.Pneumonia. 11.History of left-sided weakness. 12.History of AICD. 13.Coronary artery disease, stent. RECOMMENDATIONS AND DISCUSSION: This 67-year-old gentleman who presented with multiple complex medical issues, we will monitor the patient closely, continue the current medications, management and symptomatic treatment. Otherwise, at this time, I recommend neurology consult. Neuro checks. The patient is not a candidate for MRI because of the pacemaker. I would also recommend Cardiology evaluation. Resume the home medications. Complete neurovascular work up. Repeat labs in the morning. Guarded prognosis because of multiple complex medical issues. Further recommendations to follow. MMODL / IJN: [id number] / [email or web address]
--- NOTE | 2017-07-18 17:14 | US ---
EXAMINATION TYPE: US carotid duplex BILAT DATE OF EXAM: 07/18/2017 COMPARISON: NONE CLINICAL HISTORY: stroke. Double vision EXAM MEASUREMENTS: RIGHT: Peak Systolic Velocity (PSV) cm/sec ----- Right CCA: 56.4 ----- Right ICA: 157.5 ----- Right ECA: 138.1 ICA/CCA ratio: 2.8 RIGHT: End Diastole cm/sec ----- Right CCA: 13.6 ----- Right ICA: 47.5 ----- Right ECA: 16.2 LEFT: Peak Systolic Velocity (PSV) cm/sec ----- Left CCA: 63.3 ----- Left ICA: 101.7 ----- Left ECA: 83.6 ICA/CCA ratio: 1.6 LEFT: End Diastole cm/sec ----- Left CCA: 13.8 ----- Left ICA: 28.0 ----- Left ECA: 12.4 VERTEBRALS (direction of flow): Right Vertebral: Antegrade Left Vertebral: Antegrade Rhythm: Normal Bilateral intimal thickening, plaque throughout bilateral carotid, elevated velocities: right proxima l ICA, right mid ICA, and right proximal ECA, right ICA/CCA ratio: 2.8, 50 to 60% stenosis. IMPRESSION: There is antegrade flow in the vertebral arteries. There is evidence for 50-70% stenosis in the right internal carotid artery in close to 50% stenosis i n the left internal carotid artery. Criteria for Assigning % of Stenosis / Diameter reduction (Estimation based on the indirect measurements of the internal carotid artery velocities (ICA PSV). 1. Normal (no stenosis)=ICA PSV < 125 cm/s: ratio < 2.0: ICA EDV<40 cm/s. 2. Less than 50% stenosis=ICA PSV < 125 cm/s: ratio < 2.0: ICA EDV<40 cm/s. 3. 50 to 69% stenosis=ICA PSV of 125 to 230 cm/s: ration 2.0 ? 4.0: ICA EDV 40-100 cm/s. 4. Greater than 70% stenosis to near occlusion= ICA PSV > 230 cm/s: ratio > 4.0: ICA EDV > 100 cm/s. 5. Near occlusion= ICA PSV velocities may be low or undetectable: variable ratio and ICA EDV. 6. Total occlusion=unable to detect flow.
[2017-07-18] MEDS: SODIUM CHLORIDE 0.9% 1,000 ML IV SCH ×2 (17:38→23:03)
[2017-07-18] MEDS: glipiZIDE 10 MG TAB PO SCH (17:39)
[2017-07-18] MEDS: FUROSEMIDE 40 MG TAB PO SCH (17:39)
[2017-07-18] MEDS ORDERED: AMIODARONE 200 MG TAB PO SCH (21:00)
[2017-07-18] MEDS ORDERED: INSULIN DETEMIR 100 UNIT/ML 10 ML VIAL SQ SCH (21:00)
[2017-07-18] MEDS ORDERED: ATORVASTATIN 80 MG TAB PO SCH (21:00)
[2017-07-18] MEDS: SACUBITRIL/VALSARTAN 24 MG-26 MG TABLET PO SCH (21:52)
[2017-07-18 21:56] LABS: Glucose,Whole Blood 95 mg/dL (75-99)
--- NOTE | 2017-07-18 23:33 | P.CNNES ---
History of Present Illness Consult date: 07/18/17 History of Present Illness: This patient is a 67-year-old right-handed white male who has a known history of chronic atrial fibrillation. He also has a pacemaker defibrillator placement and apparently was doing well until yesterday morning. Patient states he developed sudden onset of double vision. When questioned on the degree of double vision he clearly indicates that was a horizontal diplopia. He denied any headache or any other injury to the head and neck region. He was concerned as the double vision did not improve. He does have a history of atrial fibrillation for which she has been placed on Xarelto for long-term anticoagulation. Since his symptoms did not seem to show improvement was brought into the emergency room at [facility] for further evaluation. Patient mentions he has a history of stroke about 10 years ago. This affected his left side. [facility] He does take his Xarelto on a regular basis and does not miss doses. Patient also has history of underlying diabetes mellitus. He states his diabetes has been under fairly good control. He is followed in the outpatient vascular surgery clinic per Dr. Malagon. He does have a routine carotid Doppler studies done which have not shown any significant carotid artery stenosis. He states his serum cholesterol also has been closely monitored. He is taking 80 mg of Lipitor. The patient states there is been no improvement in his horizontal diplopia. He did not experience any other symptoms such as severe dizziness, headaches, or focal weakness associated with this finding. The patient is now admitted and neurology has been consulted for further evaluation and recommendations. Review of Systems Constitutional: Denies chills, Denies fever Eyes: bilateral diplopia, denies blurred vision, denies pain Ears, nose, mouth and throat: Denies headache, Denies sore throat Cardiovascular: Denies chest pain, Denies shortness of breath Respiratory: Denies cough Gastrointestinal: Denies abdominal pain, Denies diarrhea, Denies nausea, Denies vomiting Musculoskeletal: Denies myalgias Integumentary: Denies pruritus, Denies rash Neurological: Reports double vision, Reports headaches, Reports visual changes, Denies numbness, Denies weakness Psychiatric: Denies anxiety, Denies depression Endocrine: Reports as per HPI, Denies fatigue, Denies weight change Past Medical History Past Medical History: Atrial Fibrillation, COPD, CVA/TIA, Diabetes Mellitus, Eye Disorder, GI Bleed, Hyperlipidemia, Hypertension, Osteoarthritis (OA), Pneumonia, Prostate Disorder, Vascular Disorder Additional Past Medical History / Comment(s): IDDM type II, CVAs x2 with L sided weakness which resolved, caratid disease, afib with RVR, ischemic cardiomyopathy, vtach, SSS with pacer, silent DC per echocardiogram, chronic CHF , tracheobronchitis, lower GI bleed post colonoscopy/polypectomy, HUDSON-no longer wears device, mild arthritis multiple joints, bilateral eyes with starting of cataracts and glaucoma, BPH-labs are improved now. History of Any Multi-Drug Resistant Organisms: None Reported Past Surgical History: AICD, Appendectomy, Heart Catheterization With Stent, Pacemaker Additional Past Surgical History / Comment(s): EPS-told needed VT ablation but decided not to have done, dual pacer/defibrillator, PCIs with total of 3 stents- done at [facility], colonoscopies/benign polypectomies. Past Anesthesia/Blood Transfusion Reactions: No Reported Reaction Date of Last Stent Placement:: 3 STENTS LAST ONE ABOUT 2 YEARS AGO AT THE [facility] in [place] Type of Cardiac Device: Permanent Pacemaker, AICD Device Placement Date:: 08/14/16 Smoking Status: Current every day smoker - Past Family History Mother Family Medical History: Congestive Heart Failure (CHF) Medications and Allergies Home Medications Medication Instructions Recorded Confirmed Type Atorvastatin [Lipitor] 80 mg PO HS 08/11/16 07/18/17 History glipiZIDE [Glucotrol] 20 mg PO BID 08/11/16 07/18/17 History Metoprolol Succinate [Toprol XL] 200 mg PO DAILY 04/15/17 07/18/17 History Amiodarone [Cordarone] 200 mg PO BID #60 tab 04/17/17 07/18/17 Rx Furosemide [Lasix] 40 mg PO BID@0900,1600 #60 tab 04/17/17 07/18/17 Rx Rivaroxaban [Xarelto] 20 mg PO DAILY #30 tab 04/17/17 07/18/17 Rx Insulin Glargine [Lantus] 40 unit SQ HS 07/18/17 07/18/17 History Sacubitril/Valsartan [Entresto 24 1 tab PO BID 07/18/17 07/18/17 History mg-26 mg Tablet] Allergies Allergy/AdvReac Type Severity Reaction Status Date / Time No Known Allergies Allergy Verified 07/18/17 09:06 Physical Examination - Vital Signs Vital Signs: Vital Signs Temp Pulse Pulse Resp BP BP Pulse Ox 07/18/17 15:20 49 L 16 07/18/17 14:05 98.2 F 49 L 20 126/56 99 07/18/17 13:05 49 L 16 155/63 07/18/17 12:05 98.3 F 48 L 18 150/68 07/18/17 11:05 50 L 18 158/70 07/18/17 10:25 48 L 16 145/68 100 07/18/17 09:30 48 L 16 169/75 98 07/18/17 09:00 49 L 18 169/97 97 07/18/17 08:10 98.0 F 55 L 20 164/71 99 Intake and Output 07/18/17 07/18/17 07/18/17 06:59 14:59 22:59 Other: Weight 88.451 kg - Constitutional General appearance: average body habitus, cooperative - EENT EENT: PERRL, mucous membranes moist - Respiratory Respiratory: lungs clear, normal breath sounds - Cardiovascular Cardiovascular: regular rate, normal S1, normal S2 (Now he weighs) Extremities: no peripheral edema bilaterally - Gastrointestinal Gastrointestinal: normoactive bowel sounds - Integumentary Integumentary: normal - Neurologic Cranial nerve examination: PERRL, VFF, V1/V2/V3 grossly intact, face symmetric, intact shoulder shrug, intact gag reflex, intact corneal reflex, normal palatal elevation Speech examination: intact Sensorimotor examination: intact Motor examination - right side: 4/5: biceps, triceps, wrist flexion, wrist extension, counter hand, hip flexors, knee extensors, dorsiflexion, toe extension (EHL) , plantarflexion Motor examination - left side: 4/5: biceps, triceps, wrist flexion, wrist extension, counter hand, hip flexors, knee extensors, dorsiflexion, toe extension (EHL) , plantarflexion Detailed sensory examination: intact Reflex and gait examination: intact Reflexes: 1+: ankle, bicep, knee, tricep - Musculoskeletal Musculoskeletal: no pain - Psychiatric Psychiatric: mood/affect appropriate, cooperative Results - Laboratory Findings CBC and BMP: 07/18/17 08:25 07/18/17 08:25 Abnormal Lab Findings: Abnormal Labs 07/18/17 07/18/17 08:25 08:25 RDW 15.8 H Total Creatine Kinase 49 L Assessment and Plan (1) CVA (cerebral vascular accident) Current Visit: Yes Status: Acute Code(s): I63.9 - CEREBRAL INFARCTION, UNSPECIFIED SNOMED Code(s): 868738795 (2) Visual disturbance Current Visit: Yes Status: Acute Code(s): H53.9 - UNSPECIFIED VISUAL DISTURBANCE SNOMED Code(s): 63826407 (3) Acute exacerbation of chronic obstructive airways disease Current Visit: No Status: Acute Code(s): J44.1 - CHRONIC OBSTRUCTIVE PULMONARY DISEASE W (ACUTE) EXACERBATION SNOMED Code(s): 668820488 (4) Rapid atrial fibrillation Current Visit: No Status: Acute Code(s): I48.91 - UNSPECIFIED ATRIAL FIBRILLATION SNOMED Code(s): 504309951 Plan: This patient is a 67-year-old male who presents to the hospital today with sudden onset of horizontal diplopia. He has a history of chronic atrial fibrillation for which she is taking Xarelto. He was brought into the emergency room for further evaluation. He underwent computed tomography scan of the brain which revealed evidence of an old small right occipital lobe infarct. Chronic white matter ischemic changes were noted. Patient's neurological examination reveals him to have some left lateral rectus muscle weakness. This finding suggests possibility of brainstem stroke. Patient is unable to have MRI of the brain due to pacemaker. We recommend a repeat computed tomography scan of the brain to be done tomorrow for further evaluation. We will obtain a ophthalmology consultation for the patient as well. He is to continue on Xarelto for further treatment of his chronic atrial fibrillation. His overall prognosis at this time remains very guarded. We will continue close neurological follow-up for the patient during this admission. Time with Patient: Greater than 30
[2017-07-18 23:41] VITALS: PULSE 50
[2017-07-19 05:15] VITALS: RESP 16
[2017-07-19 06:22] LABS: Glucose,Whole Blood 80 mg/dL (75-99)
[2017-07-19] MEDS: glipiZIDE 10 MG TAB PO SCH (06:45)
[2017-07-19 06:51] LABS: Basophils % (A) 0 %; Eosinophils # (A) 0.1 k/uL (0-0.7); Eosinophils % (A) 1 %; HCT 46.4 % (39.0-53.0); HGB 15.3 gm/dL (13.0-17.5); Lymphocytes # (A) 1.9 k/uL (1.0-4.8); Lymphocytes % (A) 24 %; MCH 28.6 pg (25.0-35.0); MCHC 32.9 g/dL (31.0-37.0); Mean Platelet Volume 7.6; Monocytes # (A) 0.5 k/uL (0-1.0); Monocytes % (A) 7 %; Neutrophils # (A) 5.1 k/uL (1.3-7.7); Neutrophils % (A) 66 %; Platelet Count 202 k/uL (150-450); RBC 5.34 m/uL (4.30-5.90); RDW 15.8 % (11.5-15.5); WBC 7.8 k/uL (3.8-10.6)
[2017-07-19 07:04] LABS: Calcium 9.2 mg/dL (8.4-10.2); Potassium 3.9 mmol/L (3.5-5.1)
[2017-07-19] MEDS ORDERED: RIVAROXABAN 20 MG TAB PO SCH (07:30)
--- NOTE | 2017-07-19 08:01 | CONS ---
CONSULTATION HISTORY OF PRESENT ILLNESS: Mr. Olson is a 67-year-old male who presented to the emergency room with double vision. He has a known history of ischemic cardiomyopathy, paroxysmal fibrillation, diabetes, hypertension, hyperlipidemia, status post dual chamber ICD implantation. He has missed his Xarelto for 3 days and yesterday had a double vision, came into the emergency room. He denies any other symptoms. He denies any dizziness or palpitation. He denies any syncope. No chest discomfort. His breathing has been stable. He has chronic dyspnea on exertion related to his chronic obstructive lung disease. He has no peripheral edema. No PND nor orthopnea. He has been followed by Dr. Rodriguez on a regular basis. He has sustained a myocardial infarction and prior stenting done at the OR. He was in the hospital in March of this year and at that time underwent an echocardiogram revealed a moderately impaired left ventricular systolic function. Ejection fraction 35-40%. He had mild mitral and tricuspid regurgitation, with no evidence of pulmonary hypertension. His coronary risk factors are remarkable for smoking. He is down to half a pack a day. Hypertension, hyperlipidemia, diabetes. MEDICATION: Amiodarone 200 mg twice a day, Lipitor at 80 mg daily, Lasix 40 mg twice a day, insulin, metoprolol succinate 100 mg daily, Xarelto 20 mg daily, and Entresto 24-26 twice a day and glipizide 20 mg twice a day. REVIEW OF SYSTEMS: Respiratory system: He has dyspnea on exertion. No recent wheezing or cough. GI system: No recent GI bleeding. system: No dysuria, hematuria. Nervous system: No prior history of stroke. PHYSICAL EXAMINATION: He is a 67-year-old male, alert, oriented, no apparent distress. Blood pressure 122/69 with a heart rate in the 50s. HEAD: Normocephalic. Eyes sclerae anicteric. Neck good upstroke. No bruit. LUNGS: Clear to auscultation. Heart: Regular rate and rhythm. S1, S2. No S3 with systolic murmur. No diastolic murmur. No rub. ABDOMEN: Soft, nontender. Positive bowel sounds. No organomegaly. EXTREMITIES: No edema. Intact distal pulses. LAB DATA: Lab data revealed BUN and creatinine 22 and 1.08, potassium 3.9, cholesterol 120, LDL of 70, and troponin of less than 0.012. NT proBNP of 4200. Chest x-ray revealed no evidence of acute infiltrate, improved compared with an old chest x-ray, EKG revealed a dual-chamber pacemaker with atrial pacing and sinus mechanism. Carotid duplex scan shows moderate disease on the right side and mild disease on the left internal carotid artery. Brain CT revealed an old small right occipital lobe infarct. IMPRESSION: 1. Diplopia, probably related to a neurological event. 2. Paroxysmal atrial fibrillation. Patient is in sinus mechanism at this time, but has missed his anticoagulation for 3 days. 3. History of paroxysmal atrial fibrillation. Remains in sinus mechanism. 4. Status post dual-chamber ICD pacemaker. 5. History of ischemic cardiomyopathy, moderate degree with no evidence of CHF at this point. 6. Hypertension. 7. Hyperlipidemia. 8. Chronic tobacco use. RECOMMENDATION: From the cardiac standpoint, I would recommend continue current therapy. I have discussed with the patient the importance of smoking cessation. He may have had an episode of atrial fibrillation and since he was not on Xarelto, that increased his risk of the embolic phenomenon. I will cut down the dose of the amiodarone once a day. We will review the dose of his medication at home to make any further adjustment of his medical regimen. Thank you for this consult. We will follow with you. MMODL / IJN: [id number] /
[2017-07-19 08:15] VITALS: TEMP 97.9
[2017-07-19] MEDS: SACUBITRIL/VALSARTAN 24 MG-26 MG TABLET PO SCH (08:25)
[2017-07-19] MEDS: FUROSEMIDE 40 MG TAB PO SCH (08:25)
[2017-07-19] MEDS ORDERED: AMIODARONE 200 MG TAB PO SCH (09:00)
[2017-07-19] MEDS ORDERED: METOPROLOL SUCCINATE (ER) 100 MG TAB.ER.24H PO SCH (09:00)
--- NOTE | 2017-07-19 09:57 | ECHOF ---
Referral Reason:Stroke MEASUREMENTS -------- HEIGHT: 180.3 cm WEIGHT: 86.2 kg BP: 122/69 RVIDd: 3.5 cm (< 3.3) IVSd: 1.2 cm (0.6 - 1.1) LVIDd: 5.7 cm (3.9 - 5.3) LVPWd: 1.2 cm (0.6 - 1.1) IVSs: 1.8 cm LVIDs: 4.0 cm LVPWs: 1.5 cm LA Diam: 4.0 cm (2.7 - 3.8) LAESV Index (A-L): 35.06 ml/m Ao Diam: 3.5 cm (2.0 - 3.7) AV Cusp: 2.3 cm (1.5 - 2.6) MV EXCURSION: 11.063 mm (> 18.000) MV EF SLOPE: 48 mm/s (70 - 150) EPSS: 1.3 cm MV E Jair: 0.88 m/s MV DecT: 218 ms MV A Jair: 0.59 m/s MV E/A Ratio: 1.49 FINDINGS -------- Sinus rhythm. This was a technically good study. The left ventricular size is normal. There is borderline concentric left ventricular hypertrophy. Overall left ventricular systolic function is low-normal with, an EF between 50 - 55 %. Basal post erior LV wall motion is hypokinetic. The right ventricle is normal in size. LA is moderately dilated 34-39 ml/m2 The right atrium is normal in size. There is mild aortic valve sclerosis. Mild mitral annular calcification present. There is trace to mild mitral regurgitation. Trace tricuspid regurgitation present. There is no pulmonic regurgitation present. The aortic root size is normal. Normal inferior vena cava with normal inspiratory collapse consistent with estimated right atrial pre ssure of 5 mmHg. There is no pericardial effusion. CONCLUSIONS -------- 1. Sinus rhythm. 2. This was a technically good study. 3. The left ventricular size is normal. 4. There is borderline concentric left ventricular hypertrophy. 5. Overall left ventricular systolic function is low-normal with, an EF between 50 - 55 %. 6. Basal posterior LV wall motion is hypokinetic. 7. The right ventricle is normal in size. 8. LA is moderately dilated 34-39 ml/m2 9. The right atrium is normal in size. 10. There is mild aortic valve sclerosis. 11. Mild mitral annular calcification present. 12. There is trace to mild mitral regurgitation. 13. Trace tricuspid regurgitation present. 14. There is no pulmonic regurgitation present. 15. The aortic root size is normal. 16. Normal inferior vena cava with normal inspiratory collapse consistent with estimated right atrial pressure of 5 mmHg. 17. There is no pericardial effusion. REFRIGERATING OILER: Casie London RDCS
--- NOTE | 2017-07-19 09:58 | CONS ---
CONSULTATION DATE OF SERVICE: 07/19/2017 HISTORY: This is a 67-year-old white male with a history of atrial fibrillation. A pacemaker/defibrillator was previously installed. The patient states that 3 days ago in the morning he experienced sudden onset of double vision. He did not have any loss of consciousness, nor did he have any other neurological signs that he recalls. The patient states that his double vision has been consistent until now and he describes it as a vertical displacement. He does not believe that it has varied since its onset. The patient was admitted to the hospital with concerns about a possible stroke. An MRI has not been performed secondary to the previously placed pacemaker. EXAM: Visual acuity measured 20/30 bilaterally. The pupils are equal and reactive to light. There was no afferent defect. Extraocular movements were full in all gaze positions. Evaluation of muscle balance demonstrated a right hypertropia of approximately 6 prism diopters that worsened on left gaze. The patient states that his double vision appears to also worsen when looking down and attempting to read. On penlight exam, the anterior segments were "clear and quiet" bilaterally. Fundus demonstrated normal- appearing maculae, vessels and discs. 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 The patient's symptoms are very suggestive of a 4th cranial nerve palsy; however, it is difficult to perform a precise exam without prisms at bedside. His history is consistent with this possibility of microinfarct of the brainstem. Treatment for this involves observation as over 90% of these will clear spontaneously within 6 months' time. If there is evidence of worsening at the 3-month kailey, imaging is often performed to evaluate the possibility of a neoplasm, which is very unlikely. Upon evaluation of his cardiac and carotid arteries, this could be managed on an outpatient basis simply with a patch and/or press on prisms over his glasses, which will help alleviate his diplopia in primary gaze. I would be happy to see him upon discharge from the hospital. Thank you for this consult. MMODL / IJN: [id number] /
--- NOTE | 2017-07-19 10:10 | CT ---
EXAMINATION TYPE: CT brain wo con DATE OF EXAM: 07/19/2017 COMPARISON: 07/18/2017 HISTORY: Follow up brainstem CVA CT DLP: [address] of the brain was performed. The ventricles, basal cisterns and sulci overlying the cerebral convexities demonstrate mild enlargem ent. Remote right occipital infarct. There is no evidence for intracranial hemorrhage or sulcal effacement. There is decreased attenuation about the periventricular white matter and deep white matter of both c erebral hemispheres, compatible with chronic small vessel ischemia. Differential diagnosis does inclu de demyelination. No mass effects are seen.No midline shift. Osseous calvarium is intact. If symptoms persist consider MRI. IMPRESSION: 1. Age related atrophic and chronic small vessel ischemic change without acute intracranial process s een at this time.
[2017-07-19 11:07] VITALS: BP 162/67
[2017-07-19] MEDS ORDERED: NICOTINE 14MG/24HR PATCH TRANSDERM SCH (13:00)
--- NOTE | 2017-07-20 07:33 | DS ---
DISCHARGE SUMMARY DATE OF SERVICE: 07/19/2017. FINAL DIAGNOSES: 1. Multiple symptoms including dizziness as well as diplopia possible acute transient ischemic attack. 2. Possibly right fourth cranial nerve palsy. 3. Atrial fibrillation. 4. Bradycardia. 5. Chronic obstructive pulmonary disease. 6. Diabetes type 2. 7. Gastrointestinal bleed history. 8. History of hypertension. 9. Hyperlipidemia. DISCHARGE DISPOSITION: The patient is being discharged in stable condition with guarded prognosis. Neurology cleared the patient for discharge. HISTORY OF PRESENT ILLNESS: This 67-year-old male with past medical history of multiple medical problems being followed by Dr. Wallace in the outpatient setting was admitted with diplopia. The CT scan showed no acute abnormality. Neurology saw the patient, ophthalmology also saw the patient. MRI could not be done because of the pacemaker. Otherwise Dr. Nguyen will follow up the patient and right fourth cranial nerve palsy was suspected. The patient will be discharged in stable condition with guarded prognosis. Diet is cardiac diet. Activity limited until followup. Follow up with Dr. Wallace in 2-3 days. Follow up with Dr. Damon and Dr. Nguyen and as well as Dr. Cherrie Miller as recommended. MEDICATIONS: 1. Cordarone 200 mg p.o. b.i.d. 2. Ecotrin 81 mg p.o. daily. 3. Lipitor 80 mg q.h.s. 4. Lasix 40 mg b.i.d. 5. Glucotrol 20 mg b.i.d. 6. Lantus 40 units subcu q.h.s. 7. Toprol XL 200 mg p.o. daily. 8. Habitrol 14 daily. 9. Xarelto 20 mg. 10.Entresto 24 mg 26 p.o. b.i.d. Once again, the patient is being discharged in stable condition with guarded prognosis. MMODL / IJN: [id number] /
== END 2017-07-19 16:57 | disposition home or self-care (01) | DRG 69 ==
LOC: EC 08:08 → 6SEL 11:03
PROVIDERS: ADMIT Hospitalist; ATTEND Hospitalist
DX: G45.9 Transient cerebral ischemic attack, unspecified (principal); I48.0 Paroxysmal atrial fibrillation; E11.9 Type 2 diabetes mellitus without complications; I11.0 Hypertensive heart disease with heart failure; I50.9 Heart failure, unspecified; E78.5 Hyperlipidemia, unspecified; M19.90 Unspecified osteoarthritis, unspecified site; H49.11 Fourth [trochlear] nerve palsy, right eye; I25.10 Atherosclerotic heart disease of native coronary artery without angina pectoris; N40.0 Benign prostatic hyperplasia without lower urinary tract symptoms; F17.210 Nicotine dependence, cigarettes, uncomplicated; R01.1 Cardiac murmur, unspecified; H53.9 Unspecified visual disturbance; H40.9 Unspecified glaucoma; I48.2 Chronic atrial fibrillation; H50.21 Vertical strabismus, right eye; F43.10 Post-traumatic stress disorder, unspecified; I08.1 Rheumatic disorders of both mitral and tricuspid valves; J44.9 Chronic obstructive pulmonary disease, unspecified; G47.33 Obstructive sleep apnea (adult) (pediatric); I49.5 Sick sinus syndrome; I25.5 Ischemic cardiomyopathy; Z95.5 Presence of coronary angioplasty implant and graft; Z95.810 Presence of automatic (implantable) cardiac defibrillator; Z82.49 Family history of ischemic heart disease and other diseases of the circulatory system; Z79.899 Other long term (current) drug therapy; Z79.4 Long term (current) use of insulin; Z90.89 Acquired absence of other organs; Z87.19 Personal history of other diseases of the digestive system; Z86.73 Personal history of transient ischemic attack (TIA), and cerebral infarction without residual deficits; Z87.01 Personal history of pneumonia (recurrent); Z86.010 Personal history of colon polyps; Z79.01 Long term (current) use of anticoagulants; I25.2 Old myocardial infarction
CPT/HCPCS: 36415; 70450; 71046; 80048; 80053; 80061; 82550; 82553; 83735; 84443; 84484; 85025; 93005; 93306; 93880; 96360; 96361; 99285

== ENCOUNTER 2018-09-18 05:57 | Day surgery (SDC) | payer MEDICARE, OTHER ==
[2018-09-16 13:33] VITALS: BMI 29.5
[~2018-09-18 05:57] MED LIST: LACTATED RINGERS 1,000 ML IV SCH; LIDOCAINE 1% 20 ML VIAL (10MG/ML) FOR IV START INTRADERMA PRN
[2018-09-18 07:13] VITALS: TEMP 97
[2018-09-18 07:35] LABS: Glucose,Whole Blood 91 mg/dL (75-99)
[2018-09-18] MEDS ORDERED: PROPOFOL 10 MG/ML 20 ML VIAL IV ONE (08:06)
[2018-09-18 08:52] VITALS: RESP 16
[2018-09-18 08:58] LABS: Glucose,Whole Blood 85 mg/dL (75-99)
[2018-09-18 09:15] VITALS: BP 122/82; PULSE 77
--- NOTE | 2018-09-18 14:00 | P.PCN ---
Date of Procedure: 09/18/18 Procedure(s) Performed: Procedure: Colonoscopy and polypectomy. Preoperative diagnosis: Screening for neoplasia. Postoperative diagnosis: Small splenic flexure polyp snared but no large polyps or cancer. Preparation: HalfLytely prep. Sedation: Provided by anesthesia. Brief clinical history: The patient is 68-year-old male who is scheduled for this evaluation for screening for neoplasia because of history of polyps. His last exam was 3-5 years ago. The patient has no abdominal complaints, bleeding or anemia. Procedure: With the patient on his left lateral decubitus position and after informed consent and adequate sedation, the perianal area was inspected and it did not show any fissures or fistulas. There were no masses felt on digital rectal examination. The Olympus CFH 190L video colonoscope was then inserted in the rectum in the usual fashion and advanced to the cecum. There was a small polyp around the splenic flexure which I snared and retrieved by suction but there were no large polyps or cancer. The mucosa appeared healthy. I retroflexed the endoscope in the rectum before the endoscope was withdrawn. The patient tolerated the procedure well. Plan: The patient was reassured and I discussed with his family. He will follow up with you as planned and I recommended repeat exam in 5 years.
== END 2018-09-18 09:38 | disposition home or self-care (01) ==
LOC: ORWHC2ENDO 05:57
DX: Z12.11 Encounter for screening for malignant neoplasm of colon (principal); D12.3 Benign neoplasm of transverse colon; Z86.010 Personal history of colon polyps; I48.91 Unspecified atrial fibrillation; J44.9 Chronic obstructive pulmonary disease, unspecified; I25.10 Atherosclerotic heart disease of native coronary artery without angina pectoris; I11.0 Hypertensive heart disease with heart failure; I50.9 Heart failure, unspecified; F17.210 Nicotine dependence, cigarettes, uncomplicated; E11.9 Type 2 diabetes mellitus without complications; Z86.73 Personal history of transient ischemic attack (TIA), and cerebral infarction without residual deficits; I25.2 Old myocardial infarction; M19.90 Unspecified osteoarthritis, unspecified site; G47.33 Obstructive sleep apnea (adult) (pediatric); E78.5 Hyperlipidemia, unspecified; Z95.5 Presence of coronary angioplasty implant and graft; Z95.810 Presence of automatic (implantable) cardiac defibrillator; K92.2 Gastrointestinal hemorrhage, unspecified; Z79.01 Long term (current) use of anticoagulants; Z79.82 Long term (current) use of aspirin; Z79.4 Long term (current) use of insulin; Z79.51 Long term (current) use of inhaled steroids; Z79.899 Other long term (current) drug therapy
CPT/HCPCS: 45385; 88305; J2704

== ENCOUNTER → 2018-10-28 | Outpatient (CLI) | payer OTHER ==
--- NOTE | 2018-10-28 17:52 | CT ---
EXAMINATION TYPE: CT urogram wo/w con DATE OF EXAM: 10/28/2018 COMPARISON: None HISTORY: Hematuria. CT DLP: 1 7-1.4 mGycm Automated exposure control for dose reduction was used. CONTRAST: Performed without and with IV Contrast, patient injected with 100 mL of Isovue M300. Corrected techni que: Axial images 5 mm thick sections. Following contrast administration additional imaging is perfor med. Three-D reconstructed images through the kidneys ureter and bladder are performed. FINDINGS: Limited CT sections are obtained the lung bases which are clear. Liver spleen pancreas visualized appear normal. Gallbladder is decompressed. Right adrenal gland appe ars within normal limits. Left adrenal gland is thickened with a transverse dimension of 1.8 cm. Loop s of bowel are visualized without oral contrast appear normal. Tiny cortical renal cysts are present bilaterally. The larger cysts or on the right upper outer kidne y and measures 1.6 cm and 16 Hounsfield units. An additional cortical renal cyst is on the medial mid right kidney measuring 1.1 cm and 31 Hounsfield units. This cannot be classified as simple cysts. Th e inferior pole left renal cyst measures 1.5 cm and 8 Hounsfield units. Vascular calcifications within the aorta. Vena cava is normal. Prostate is visualized appears unremarkable. No hydronephrosis is evident. No hydroureter is evident. Ureters follow a normal caliber course and c ontour to the urinary bladder. On delayed images within the posterior lateral right urinary bladder is a solid areas surrounded by c ontrast measuring 1.6 cm suspicious for neoplasm. No right hydroureter is evident. IMPRESSION: 1. 1.6 CM NODULAR MASS WITHIN THE POSTERIOR LATERAL RIGHT URINARY BLADDER. WORKUP FOR NEOPLASM IS REC OMMENDED. NO HYDRONEPHROSIS OR HYDROURETER IS EVIDENT. A Yellow level critical message alert has been initiated for Cesar Chase MD via the e[facility] Critical Results System on 10/28/2018 5:49 PM. This message alert has been sent to Cesar Chase MD via the preferences provided by the clinician for the receipt of Radiology Critical Findings. Nedramarlene pavon ID [id number].
== END | disposition home or self-care (01) ==
LOC: RADCTMAIN 13:47
PROVIDERS: ATTEND Urology
DX: N32.89 Other specified disorders of bladder (principal)
CPT/HCPCS: 82565; 84520; 74178; 36415; 74400; Q9967

== ENCOUNTER 2018-12-16 02:06 | Emergency (ER) | payer OTHER ==
[2018-12-16 02:15] VITALS: TEMP 98
--- NOTE | 2018-12-16 02:30 | ED ---
Male Urogenital HPI - General Chief complaint: Urogenital Stated complaint: Urogenital Time Seen by Provider: 12/16/18 02:18 Source: patient, RN notes reviewed Mode of arrival: ambulatory Limitations: no limitations - History of Present Illness Initial comments: 68-year-old male present emergency from chief complaint of bladder pain, decreased urine output in his Lui. Patient had lab bladder biopsy by Dr. Marcus today outpatient. Patient states that he was doing well until his Lui catheter stopped draining well. He states that he feels a large amount of pressure. Patient states that Dr. Marcus warned him that it may block up. Patient denies any fevers or chills patient denies any vomiting diarrhea constipation he does have some nausea from the discomfort. No chest pain or shortness of breath - Related Data Home Medications Medication Instructions Recorded Confirmed Atorvastatin [Lipitor] 80 mg PO HS 08/11/16 09/18/18 glipiZIDE [Glucotrol] 10 mg PO BID 08/11/16 09/18/18 Metoprolol Succinate [Toprol XL] 200 mg PO DAILY 04/15/17 09/18/18 Insulin Glargine [Lantus] 40 unit SQ HS 07/18/17 09/18/18 Sacubitril/Valsartan [Entresto 24 1 tab PO BID 07/18/17 09/18/18 mg-26 mg Tablet] Brimonidine Tartrate [Alphagan P 1 drops BOTH EYES BID 09/16/18 09/18/18 0.2% Ophth Soln] Budesonide/Formoterol Fumarate 1 puff INHALATION DAILY PRN 09/16/18 09/18/18 [Symbicort 80-4.5 Mcg Inhaler] Warfarin [Coumadin] 1.5 mg PO WE 09/16/18 09/18/18 Warfarin [Coumadin] 3 mg PO SUMOTUTHFRSA 09/16/18 09/18/18 Previous Rx's Medication Instructions Recorded Amiodarone [Cordarone] 200 mg PO BID #60 tab 04/17/17 Furosemide [Lasix] 40 mg PO BID@0900,1600 #60 tab 04/17/17 Aspirin EC [Ecotrin Low Dose] 81 mg PO DAILY #30 tablet. 07/19/17 Allergies Allergy/AdvReac Type Severity Reaction Status Date / Time No Known Allergies Allergy Verified 12/16/18 02:14 Review of Systems ROS Statement: Those systems with pertinent positive or pertinent negative responses have been documented in the HPI. ROS Other: All systems not noted in ROS Statement are negative. Past Medical History Past Medical History: Atrial Fibrillation, COPD, CVA/TIA, Diabetes Mellitus, Eye Disorder, GI Bleed, Hyperlipidemia, Hypertension, Osteoarthritis (OA), Pneumonia, Prostate Disorder, Sleep Apnea/CPAP/BIPAP, Vascular Disorder Additional Past Medical History / Comment(s): IDDM type II, CVAs x2 with L sided weakness which resolved, carotid disease, afib with RVR, ischemic cardiomyopathy, vtach, SSS with pacer, silent [place] per echocardiogram, chronic CHF, tracheobronchitis, lower GI bleed post colonoscopy/polypectomy, HUDSON-no longer wears device, mild arthritis multiple joints, bilateral eyes with starting of cataracts and glaucoma, History of Any Multi-Drug Resistant Organisms: None Reported Past Surgical History: AICD, Appendectomy, Heart Catheterization With Stent, Pacemaker Additional Past Surgical History / Comment(s): EPS-told needed VT ablation but decided not to have done, dual pacer/defibrillator, PCIs with total of 3 stents- done at [facility], colonoscopies/benign polypectomies. Past Anesthesia/Blood Transfusion Reactions: No Reported Reaction Date of Last Stent Placement:: 3 STENTS LAST ONE ABOUT 2 YEARS AGO AT THE [facility] in [place] Type of Cardiac Device: Permanent Pacemaker, AICD Device Placement Date:: 08/14/16 Past Psychological History: PTSD Smoking Status: Current every day smoker Past Alcohol Use History: None Reported Past Drug Use History: None Reported - Past Family History Mother Family Medical History: Congestive Heart Failure (CHF) General Exam Limitations: no limitations General appearance: alert, in no apparent distress Head exam: Present: atraumatic, normocephalic, normal inspection Respiratory exam: Present: normal lung sounds bilaterally. Absent: respiratory distress, wheezes, rales, rhonchi, stridor Cardiovascular Exam: Present: normal rhythm, tachycardia, normal heart sounds. Absent: systolic murmur, diastolic murmur, rubs, gallop, clicks GI/Abdominal exam: Present: soft, tenderness (Suprapubic tenderness), normal bowel sounds. Absent: distended, guarding, rebound, rigid exam: Present: other (Lui catheter in place) Course Vital Signs 12/16/18 02:12 Temperature 98 F Pulse Rate 109 H Respiratory 20 Rate Blood Pressure 147/81 O2 Sat by Pulse 98 Oximetry Medical Decision Making - Medical Decision Making 68-year-old male presented for Lui catheter problem. Patient had increase in pain and was not draining. Patient's catheter found to be pulled down into the urethra causing discomfort. This was not draining Lui catheter was exchanged after irrigation did not work. Patient states that all his symptoms have resolved. Disposition Clinical Impression: Complication, blocked Lui catheter Disposition: HOME SELF-CARE Condition: Stable Instructions (If sedation given, give patient instructions): Lui Catheter Placement and Care (ED) Additional Instructions: Please return to the Emergency Department if symptoms worsen or any other concerns. Is patient prescribed a controlled substance at d/c from ED?: No Referrals: [facility] [Primary Care Provider] - 1-2 days Time of Disposition: 03:30
[2018-12-16 03:37] VITALS: BP 110/78; PULSE 94; RESP 18
== END 2018-12-16 03:39 | disposition home or self-care (01) ==
LOC: EC 02:06
DX: T83.091A Other mechanical complication of indwelling urethral catheter, initial encounter (principal); I48.91 Unspecified atrial fibrillation; E11.9 Type 2 diabetes mellitus without complications; E78.5 Hyperlipidemia, unspecified; G47.30 Sleep apnea, unspecified; J44.9 Chronic obstructive pulmonary disease, unspecified; I25.2 Old myocardial infarction; I11.0 Hypertensive heart disease with heart failure; I50.9 Heart failure, unspecified; F17.200 Nicotine dependence, unspecified, uncomplicated; Z79.4 Long term (current) use of insulin; Z79.01 Long term (current) use of anticoagulants; Z79.899 Other long term (current) drug therapy; Z95.0 Presence of cardiac pacemaker; Z95.5 Presence of coronary angioplasty implant and graft; Z86.73 Personal history of transient ischemic attack (TIA), and cerebral infarction without residual deficits
CPT/HCPCS: 51702; 99283

== ENCOUNTER 2019-05-24 09:17 | Emergency (ER) | payer MEDICARE, OTHER ==
[2019-05-24 09:27] VITALS: TEMP 97.3
--- NOTE | 2019-05-24 10:15 | ED ---
Upper Extremity HPI - General Chief Complaint: Extremity Injury, Upper Stated Complaint: Left Hand Swelling and Pain Time Seen by Provider: 05/24/19 09:40 Source: patient Mode of arrival: ambulatory Limitations: no limitations - History of Present Illness Initial Comments: Patient is a 69-year-old male presenting to emergency Department with complaints of pain and swelling in his left hand and wrist x 2 days. He denies any injuries or falls. He denies history of gout or infections. He does have multiple comorbidities, however no acute changes in the last few days. He denies having a fever, vomiting, left upper arm pain. He is on Coumadin for heart disease. He has no other complaints at this time. Upon arrival to the ER his vitals are stable. - Related Data Home Medications Medication Instructions Recorded Confirmed Atorvastatin [Lipitor] 80 mg PO HS 08/11/16 09/18/18 glipiZIDE [Glucotrol] 10 mg PO BID 08/11/16 09/18/18 Metoprolol Succinate [Toprol XL] 200 mg PO DAILY 04/15/17 09/18/18 Insulin Glargine [Lantus] 40 unit SQ HS 07/18/17 09/18/18 Sacubitril/Valsartan [Entresto 24 1 tab PO BID 07/18/17 09/18/18 mg-26 mg Tablet] Brimonidine Tartrate [Alphagan P 1 drops BOTH EYES BID 09/16/18 09/18/18 0.2% Ophth Soln] Budesonide/Formoterol Fumarate 1 puff INHALATION DAILY PRN 09/16/18 09/18/18 [Symbicort 80-4.5 Mcg Inhaler] Warfarin [Coumadin] 1.5 mg PO WE 09/16/18 09/18/18 Warfarin [Coumadin] 3 mg PO SUMOTUTHFRSA 09/16/18 09/18/18 Previous Rx's Medication Instructions Recorded Amiodarone [Cordarone] 200 mg PO BID #60 tab 04/17/17 Furosemide [Lasix] 40 mg PO BID@0900,1600 #60 tab 04/17/17 Aspirin EC [Ecotrin Low Dose] 81 mg PO DAILY #30 tablet. 07/19/17 Allergies Allergy/AdvReac Type Severity Reaction Status Date / Time No Known Allergies Allergy Verified 12/16/18 02:14 Review of Systems ROS Statement: Those systems with pertinent positive or pertinent negative responses have been documented in the HPI. ROS Other: All systems not noted in ROS Statement are negative. Past Medical History Past Medical History: Atrial Fibrillation, COPD, CVA/TIA, Diabetes Mellitus, Eye Disorder, GI Bleed, Hyperlipidemia, Hypertension, Osteoarthritis (OA), Pneumonia, Prostate Disorder, Sleep Apnea/CPAP/BIPAP, Vascular Disorder Additional Past Medical History / Comment(s): IDDM type II, CVAs x2 with L sided weakness which resolved, carotid disease, afib with RVR, ischemic cardiomyopathy, vtach, SSS with pacer, silent [place] per echocardiogram, chronic CHF, tracheobronchitis, lower GI bleed post colonoscopy/polypectomy, HUDSON-no longer wears device, mild arthritis multiple joints, bilateral eyes with starting of cataracts and glaucoma, History of Any Multi-Drug Resistant Organisms: None Reported Past Surgical History: AICD, Appendectomy, Heart Catheterization With Stent, Pacemaker Additional Past Surgical History / Comment(s): EPS-told needed VT ablation but decided not to have done, dual pacer/defibrillator, PCIs with total of 3 stents- done at [facility], colonoscopies/benign polypectomies. Past Anesthesia/Blood Transfusion Reactions: No Reported Reaction Date of Last Stent Placement:: 3 STENTS LAST ONE ABOUT 2 YEARS AGO AT THE [facility] in [place] Type of Cardiac Device: Permanent Pacemaker, AICD Device Placement Date:: 08/14/16 Past Psychological History: PTSD Smoking Status: Current every day smoker Past Alcohol Use History: None Reported Past Drug Use History: None Reported - Past Family History Mother Family Medical History: Congestive Heart Failure (CHF) General Exam - General Exam Comments Initial Comments: GENERAL: Well-appearing, well-nourished and in no acute distress. HEAD: Atraumatic, normocephalic. EYES: Pupils equal round and reactive to light, extraocular movements intact, sclera anicteric, conjunctiva are normal. ENT: TMs normal, nares patent, oropharynx clear without exudates. Moist mucous membranes. NECK: Normal range of motion, supple without lymphadenopathy or JVD. LUNGS: Breath sounds clear to auscultation bilaterally and equal. No wheezes rales or rhonchi. HEART: Regular rate and rhythm without murmurs, rubs or gallops. ABDOMEN: Soft, nontender, normoactive bowel sounds. No guarding, no rebound. No masses appreciated. : Deferred EXTREMITIES: Patient has mild pain with palpation of the left hand, dorsal aspect and mildly into the left wrist. He does have mild to moderate swelling of the area. No erythema, no signs of infection. He does have full range of motion of the left wrist and hand however painful with wrist flexion. He is neurovascular intact. NEUROLOGICAL: Normal speech, normal gait. PSYCH: Normal mood, normal affect. SKIN: Warm, Dry, normal turgor, no rashes or lesions noted. Limitations: no limitations Course Vital Signs 05/24/19 05/24/19 05/24/19 09:24 09:27 10:27 Temperature 97.3 F L Pulse Rate 53 L 50 L Respiratory 18 16 16 Rate Blood Pressure 158/81 144/82 O2 Sat by Pulse 97 95 Oximetry 05/24/19 05/24/19 11:00 11:32 Temperature Pulse Rate 56 L Respiratory 16 20 Rate Blood Pressure 140/79 O2 Sat by Pulse 95 Oximetry Medical Decision Making - Medical Decision Making Patient is 69-year-old male with mild swelling of the left hand and pain 2 days. No injuries or trauma. X-rays reveal no acute fractures dislocations. This does not appear to be infectious in nature. I discussed with patient to continue with elevation as well as ice to the area and to follow up with his PCP. He is stable for discharge at this time. Return parameters were discussed with the patient he verbalizes understanding. Case discussed with Dr. miguel. Disposition Clinical Impression: Left hand pain, Swelling of left hand Disposition: HOME SELF-CARE Condition: Stable Instructions (If sedation given, give patient instructions): Arthralgia (ED) Additional Instructions: Please return to the Emergency Department if symptoms worsen or any other concerns. Use ice to the area as well as elevation of the left hand. Follow-up with PCP if symptoms persist. Is patient prescribed a controlled substance at d/c from ED?: No Referrals: [facility],Clinic [Primary Care Provider] - 1-2 days
--- NOTE | 2019-05-24 10:32 | XR ---
EXAMINATION TYPE: XR hand complete LT , 3 VIEWS DATE OF EXAM ORDERED: 05/24/2019 HISTORY: pain, swelling. COMPARISON: None. FINDINGS: There is a deformity of the distal phalanx of the thumb likely relating to previous trauma. No acute fracture or dislocation is seen. IMPRESSION: 1. NO ACUTE OSSEOUS LESION. 2. EVIDENCE OF OLD TRAUMA TO THE DISTAL PHALANX OF THE THUMB.
--- NOTE | 2019-05-24 10:34 | XR ---
EXAMINATION TYPE: XR wrist complete LT , 4 VIEWS DATE OF EXAM ORDERED: 05/24/2019 HISTORY: pain, swelling. COMPARISON: None. FINDINGS: No fracture or dislocation IMPRESSION: 1. NO ACUTE OSSEOUS LESION. 2. AMORPHOUS CALCIFICATION ANTERIOR TO THE CARPAL LUNATE. ETIOLOGY OF THIS IS UNCERTAIN.
[2019-05-24 11:31] VITALS: BP 140/79; PULSE 56
[2019-05-24 11:33] VITALS: RESP 20
== END 2019-05-24 11:33 | disposition home or self-care (01) ==
LOC: SUPCPDRO 09:17 → EC 09:17
DX: M79.642 Pain in left hand (principal); M79.89 Other specified soft tissue disorders; I48.91 Unspecified atrial fibrillation; J44.9 Chronic obstructive pulmonary disease, unspecified; E78.5 Hyperlipidemia, unspecified; I25.2 Old myocardial infarction; I11.0 Hypertensive heart disease with heart failure; I50.9 Heart failure, unspecified; G47.33 Obstructive sleep apnea (adult) (pediatric); E11.39 Type 2 diabetes mellitus with other diabetic ophthalmic complication; H42 Glaucoma in diseases classified elsewhere; F17.200 Nicotine dependence, unspecified, uncomplicated; Z79.01 Long term (current) use of anticoagulants; Z79.899 Other long term (current) drug therapy; Z79.4 Long term (current) use of insulin; Z95.0 Presence of cardiac pacemaker; Z95.5 Presence of coronary angioplasty implant and graft; Z86.73 Personal history of transient ischemic attack (TIA), and cerebral infarction without residual deficits
CPT/HCPCS: 99283

== ENCOUNTER → 2020-08-26 | Outpatient (CLI) | payer OTHER ==
--- NOTE | 2020-08-26 15:07 | CTL ---
EXAMINATION TYPE: CT Low Dose Lung DATE OF EXAM ORDERED: 08/26/2020 HISTORY: Long-term tobacco use. Lung cancer screening CT DLP: 126.[address] CTDI: 3.4 mGy Automated exposure control for dose reduction was used. SCREENING VISIT: Baseline COMPARISON: None. TECHNIQUE: Low dose computed tomography scan was performed through the chest at 1 mm thick sections a nd reconstructed images in the coronal plane at [address] DIAGNOSTIC QUALITY: Satisfactory FINDINGS: LUNG NODULES: Present, detailed below: There is 4 mm calcified nodule or granuloma right upper lobe axial image 55. There is more focal scarring in the lateral right upper lung near this level there is suspicious spic ulated scar or nodule measuring 2.5 x 1.7 cm axial image 78 that warrants further workup. Possible fo chidi scarring versus spiculated nodule on coronal and sagittal images. There is 4 mm noncalcified peripheral right lower lobe nodule axial image 234. LUNGS: COPD: Severity: Mild/moderate Fibrosis: Severity: [id number] scattered peripheral fibrotic changes. Lymph nodes: No greater than 1 cm noncalcified Other findings: None RIGHT PLEURAL SPACE: Effusion: None Calcification: None Thickening: None Pneumothorax: None LEFT PLEURAL SPACE: Effusion: None Calcification: None Thickening: None Pneumothorax: None HEART: Heart Size: Normal Coronary calcification: Moderate to severe with suspected coronary stent at origin of right coronary artery Pericardial effusion: None OTHER FINDINGS: Upper abdomen: None Bony thorax: Mild to moderate multilevel spurring in the thoracic spine Supraclavicular region: None. Other: Dual-lead pacemaker/defibrillator. Some calcification in the inferior posterior left ventricul ar wall is present. IMPRESSION: Mild to moderate emphysematous change and scattered parenchymal fibrotic changes. Suspici ous 2.5 x 1.7 cm scarlike opacity or spiculated nodule lateral right upper lobe. Follow-up advised. CT LUNG RAD AND CT CHEST RECOMMENDATION: Lung-Rad 4B or 4X Very Suspicious: Follow-up Chest CT with o r without contrast or PET/CT and/or tissue sampling. PET/CT may be used when there is a > 8 mm solid component. Advised PET/CT follow-up. S Modifier (other clinically significant findings): S Severe three-vessel coronary artery calcification and/or coronary stents. Correlate clinically.
== END | disposition home or self-care (01) ==
LOC: RADCTMAIN 14:07
DX: Z12.2 Encounter for screening for malignant neoplasm of respiratory organs (principal); J43.9 Emphysema, unspecified; Z87.891 Personal history of nicotine dependence; Z95.5 Presence of coronary angioplasty implant and graft
CPT/HCPCS: 71271

== ENCOUNTER → 2020-09-09 | Outpatient (CLI) | payer OTHER ==
--- NOTE | 2020-09-10 07:29 | PE ---
EXAMINATION TYPE: PET CT fusion skull to thigh DATE OF EXAM: 09/09/2020 COMPARISON: Low-dose lung screening CT August 26, 2020 HISTORY: Abnormal CT, solitary pulmonary nodule TECHNIQUE: Following the intravenous administration of 11.51 mCi of F-18 FDG, whole body images are performed from the skull base to the midthigh. Images are reviewed on the computer in the coronal, a xial, and sagittal planes. Reconstructed rotating images are created on independent workstation and reviewed on the computer. A localization and attenuation correction CT is performed in conjunction with the PET scan. The blood glucose level equals 59. SCAN: Initial Scan FINDINGS: SKULL BASE AND NECK: No areas of abnormal hypermetabolic uptake. CHEST, MEDIASTINUM, AND HILAR REGION: Moderate underlying emphysematous change is redemonstrated. Per sistent prominent 2.5 x 1.7 cm spiculated nodule or nodular scarring lateral aspect right upper lobe axial image 78, but has abnormal hypermetabolic uptake worrisome for malignancy. Approximately 3 to 4 cm posterior to this there is mildly hypermetabolic 8 x 6 mm subpleural nodule with Max SUV just ove r 2.5. Benign 4 mm calcified nodule or granuloma superior to this axial image 72 redemonstrated. No suspicious hypermetabolic or enlarged thoracic adenopathy. No additional areas of abnormal hyperme tabolic uptake.. ABDOMEN AND PELVIS: Normal excretion. Nonspecific bowel uptake. Low dense 2.5 x 1.5 cm left adrenal m ass favors benign lipid rich adenoma as is ametabolic. No areas of abnormal hypermetabolic uptake. OSSEOUS STRUCTURES: No areas of abnormal hypermetabolic uptake. OTHER CT: Moderate calcified plaque bilateral carotid bulb level. Nasal septum deviated to right of m idline. There is medial mucous retention cyst or polyp in both maxillary sinuses. There is cardiomegaly with dual lead pacemaker. There is coronary artery calcification and/or stents in the right coronary and left circumflex distribution. Mild cardiomegaly. Moderate to severe calcified plaque of the common iliac arterial vessels. IMPRESSION: Abnormal hypermetabolic uptake in the spiculated 2.5 x 1.7 cm lateral right upper lobe no dule worrisome for neoplasm. Additional mild hypermetabolic uptake in the nearby 8 x 6 mm posterior s ubpleural right upper lobe nodule makes neoplasm at this level not excluded. No adenopathy or metasta tic disease noted.
== END | disposition home or self-care (01) ==
LOC: RADPETMAIN 13:15
PROVIDERS: ATTEND Physician Assistant
DX: R91.8 Other nonspecific abnormal finding of lung field (principal)
CPT/HCPCS: 78815; A9552

== ENCOUNTER 2021-01-05 13:49 | Emergency (ER) | payer OTHER ==
[2021-01-05 14:47] VITALS: BP 151/72; PULSE 56; RESP 18; TEMP 98.9
--- NOTE | 2021-01-05 16:21 | ED ---
General Adult HPI - General Chief complaint: Extremity Problem,Nontraumatic Stated complaint: L leg pain Time Seen by Provider: 01/05/21 15:55 Source: patient, RN notes reviewed, old records reviewed Mode of arrival: ambulatory Limitations: no limitations - History of Present Illness Initial comments: This is a 70-year-old male presents emergency Department complaining of left leg pain from the knee down to the ankle. Patient's ongoing for 1 day. Patient states walking makes it considerably worse per patient states while at rest it seems to go away and subside and he has no pain. Patient states that multiple heart disease. Patient states she's on Coumadin for his heart issues. Patient denies any injury to light. Patient denies any swelling to the leg. Patient denies any discoloration to light. Patient denies any chest pain difficult to breathing or shortness of breath - Related Data Home Medications Medication Instructions Recorded Confirmed Atorvastatin [Lipitor] 80 mg PO HS 08/11/16 09/18/18 glipiZIDE [Glucotrol] 10 mg PO BID 08/11/16 09/18/18 Metoprolol Succinate [Toprol XL] 200 mg PO DAILY 04/15/17 09/18/18 Insulin Glargine [Lantus Vial] 40 unit SQ HS 07/18/17 09/18/18 Sacubitril/Valsartan [Entresto 24 1 tab PO BID 07/18/17 09/18/18 mg-26 mg Tablet] Brimonidine Tartrate [Alphagan P 1 drops BOTH EYES BID 09/16/18 09/18/18 0.2% Ophth Soln] Budesonide/Formoterol Fumarate 1 puff INHALATION DAILY PRN 09/16/18 09/18/18 [Symbicort 80-4.5 Mcg Inhaler] Warfarin [Coumadin] 1.5 mg PO WE 09/16/18 09/18/18 Warfarin [Coumadin] 3 mg PO SUMOTUTHFRSA 09/16/18 09/18/18 Previous Rx's Medication Instructions Recorded Amiodarone [Cordarone] 200 mg PO BID #60 tab 04/17/17 Furosemide [Lasix] 40 mg PO BID@0900,1600 #60 tab 04/17/17 Aspirin EC [Ecotrin Low Dose] 81 mg PO DAILY #30 tablet. 07/19/17 Allergies Allergy/AdvReac Type Severity Reaction Status Date / Time No Known Allergies Allergy Verified 01/05/21 14:47 Review of Systems ROS Statement: Those systems with pertinent positive or pertinent negative responses have been documented in the HPI. ROS Other: All systems not noted in ROS Statement are negative. Past Medical History Past Medical History: Atrial Fibrillation, COPD, CVA/TIA, Diabetes Mellitus, Eye Disorder, GI Bleed, Hyperlipidemia, Hypertension, Osteoarthritis (OA), Pneumonia, Prostate Disorder, Sleep Apnea/CPAP/BIPAP, Vascular Disorder Additional Past Medical History / Comment(s): IDDM type II, CVAs x2 with L sided weakness which resolved, carotid disease, afib with RVR, ischemic cardiomyopathy, vtach, SSS with pacer, silent [place] per echocardiogram, chronic CHF, tracheobronchitis, lower GI bleed post colonoscopy/polypectomy, HUDSON-no longer wears device, mild arthritis multiple joints, bilateral eyes with starting of cataracts and glaucoma, History of Any Multi-Drug Resistant Organisms: None Reported Past Surgical History: AICD, Appendectomy, Heart Catheterization With Stent, Pacemaker Additional Past Surgical History / Comment(s): EPS-told needed VT ablation but decided not to have done, dual pacer/defibrillator, PCIs with total of 3 stents- done at [facility] in [place], colonoscopies/benign polypectomies. Past Anesthesia/Blood Transfusion Reactions: No Reported Reaction Date of Last Stent Placement:: 3 STENTS LAST ONE ABOUT 2 YEARS AGO AT THE [facility] in [place] Type of Cardiac Device: Permanent Pacemaker, AICD Device Placement Date:: 08/14/16 Past Psychological History: PTSD Smoking Status: Current every day smoker Past Alcohol Use History: None Reported Past Drug Use History: None Reported - Past Family History Mother Family Medical History: Congestive Heart Failure (CHF) General Exam - General Exam Comments Initial Comments: GENERAL: Patient is well-developed and well-nourished. Patient is nontoxic and well- hydrated and is in no acute distress. ENT: Neck is soft and supple. No significant lymphadenopathy is noted. Oropharynx is clear. Moist mucous membranes. Neck has full range of motion without eliciting any pain. EYES: The sclera were anicteric and conjunctiva were pink and moist. Extraocular movements were intact and pupils were equal round and reactive to light. Eyelids were unremarkable. PULMONARY: Unlabored respirations. Good breath sounds bilaterally. No audible rales rhonchi or wheezing was noted. CARDIOVASCULAR: There is a regular rate and rhythm without any murmurs gallops or rubs. ABDOMEN: Soft and nontender with normal bowel sounds. SKIN: Skin is clear with no lesions or rashes and otherwise unremarkable. NEUROLOGIC: Patient is alert and oriented x3. Cranial nerves II through XII are grossly intact. Motor and sensory are also intact. Normal speech, volume and content. Symmetrical smile. MUSCULOSKELETAL: Unable to palpate a pulse. Fingers. Patient's left leg is slightly cooler than the right leg. Patient has capillary refill it is about 3 seconds. patient is in no pain at rest. Patient has normal sensation of the toes. LYMPHATICS: No significant lymphadenopathy is noted PSYCHIATRIC: Normal psychiatric evaluation. Limitations: no limitations Course Vital Signs 01/05/21 14:43 Temperature 98.9 F Pulse Rate 56 L Respiratory 18 Rate Blood Pressure 151/72 O2 Sat by Pulse 91 L Oximetry Medical Decision Making - Medical Decision Making Patient has had no pain while in the emergency department. I spoke with Dr. Tubbs though he will see the patient in the office next week. Disposition Clinical Impression: Claudication Disposition: HOME SELF-CARE Condition: Good Instructions (If sedation given, give patient instructions): Peripheral Vascular Disease (ED) Additional Instructions: Patient's pain worsens patient's come back to the emergency department. Patient's pain is not relieved with rest patient to come back to the emergency department. Is patient prescribed a controlled substance at d/c from ED?: No Referrals: Rock Rob DO [Doctor of Osteopathic Medicine] - 1-2 days Time of Disposition: 17:08
--- NOTE | 2021-01-05 17:17 | US ---
EXAMINATION TYPE: US venous doppler duplex LE LT DATE OF EXAM: 01/05/2021 4:50 PM COMPARISON: NONE CLINICAL HISTORY: Leg pain. EC patient with left LE pain and swelling at ankle today. SIDE PERFORMED: Left TECHNIQUE: The lower extremity deep venous system is examined utilizing real time linear array sonog britt with graded compression, doppler sonography and color-flow sonography. VESSELS IMAGED: Common Femoral Vein Deep Femoral Vein Greater Saphenous Vein * Femoral Vein Popliteal Vein Small Saphenous Vein * Proximal Calf Veins (* superficial vessels) Left Leg: Negative for DVT. Edema channels are noted at anterior left ankle. IMPRESSION: 1. Left lower extremity ultrasound negative for deep venous arthrosis. 2. Soft tissue swelling is noted at the ankle.
== END 2021-01-05 17:25 | disposition home or self-care (01) ==
LOC: EC 13:49
DX: I73.9 Peripheral vascular disease, unspecified (principal); E11.9 Type 2 diabetes mellitus without complications; J44.9 Chronic obstructive pulmonary disease, unspecified; E78.5 Hyperlipidemia, unspecified; I11.0 Hypertensive heart disease with heart failure; I50.9 Heart failure, unspecified; I25.2 Old myocardial infarction; I48.91 Unspecified atrial fibrillation; F17.200 Nicotine dependence, unspecified, uncomplicated; Z79.4 Long term (current) use of insulin; Z95.0 Presence of cardiac pacemaker; Z86.73 Personal history of transient ischemic attack (TIA), and cerebral infarction without residual deficits; Z79.899 Other long term (current) drug therapy
CPT/HCPCS: 99283

== ENCOUNTER → 2021-03-14 | Outpatient (CLI) | payer OTHER ==
--- NOTE | 2021-03-14 13:15 | CT ---
EXAMINATION TYPE: CT chest wo con DATE OF EXAM: 03/14/2021 COMPARISON: Prior low-dose lung screening CT August 26, [address] from 09/09/2020. HISTORY: Malignant neoplasm of right upper lobe. CT DLP: 549 mGycm. Automated Exposure Control for Dose Reduction was Utilized. TECHNIQUE: CT scan of the thorax is performed without IV contrast. FINDINGS: LUNGS: Moderate underlying emphysematous change redemonstrated. Stable small 5 mm lateral right upper lung nodule axial image 13. Just inferior and anterior to this there is fairly stable 1.3 x 1.3 cm s carlike opacity or spiculated nodule axial image 17 corresponding to the mildly hypermetabolic lesion on PET CT. Peripheral reticulation near this level extending anteriorly and posteriorly along with i nferior extension is now present. [id number] bibasilar atelectatic change is seen. No pleural e ffusion or pneumothorax noted. No new greater than 5 mm pulmonary nodules or masses. Stable 4-5 mm ca lcified right lower lobe nodule axial image 40 MEDIASTINUM: Lack of IV contrast is noted to limit evaluation for mediastinal and especially hilar ad enopathy. There are no definitive new greater than 1 cm mediastinal lymph nodes. Stable prominent but subcentimeter mediastinal lymph nodes axial image 24 noted for reference in the AP window and inferi or prevascular space. No cardiomegaly or pericardial effusion is seen. Fairly severe three-vessel co ronary artery calcification redemonstrated. Dual-lead pacemaker/defibrillator again seen. OTHER: Small degree of bilateral flame shaped gynecomastia redemonstrated. Low dense left adrenal 1.5 cm nodule axial image 60 is unchanged from prior PET/CT. IMPRESSION: Overall stable findings from most recent CT and PET/CT with moderate emphysematous change and stable 1.3 cm spiculated slightly hypermetabolic right lung nodule. New surrounding reticulation favors posttreatment change. No new or enlarging greater than 5 mm pulmonary nodules.
== END | disposition home or self-care (01) ==
LOC: RADCTMAIN 11:29
PROVIDERS: ATTEND Radiology Radiation Oncology
DX: C34.11 Malignant neoplasm of upper lobe, right bronchus or lung (principal)
CPT/HCPCS: 71250; 82565; 84520

== ENCOUNTER → 2021-05-16 | Outpatient (CLI) | payer OTHER ==
--- NOTE | 2021-05-16 14:02 | CT ---
EXAMINATION TYPE: CT angio abd aorta w/Runoff DATE OF EXAM: 05/16/2021 INDICATION: Abdominal aortic aneurysm and left foot pain and numbness. CT DLP: 1607.4 mGy.cm Automated Exposure Control for Dose Reduction was Utilized. TECHNIQUE AND CONTRAST: CT scan of the abdomen, pelvis and lower extremities is performed without and with IV Contrast, patie nt injected with 80ml mL of Isovue 370. MIP and 3-D reconstruction images were performed and reviewed . COMPARISON: CT dated 10/28/2018 and PET scan dated 09/09/2020 FINDINGS: The visualized portion of the ascending aorta measures 3.7 cm. Scattered arterial atherosclerotic chidi cifications including coronary artery calcifications. Redemonstration of the previously seen infraren al abdominal aortic ectasia measuring up to 2.9 cm with atheromatous plaque and atheromatous ulcer wi thin, unchanged since 2019 CT scan. No other abdominal aortic aneurysm, occlusion, dissection or sign ificant stenosis. Atherosclerotic changes of the major abdominal arteries without significant stenosi s or occlusion. Extensive atherosclerotic calcifications of the common iliac arteries without significant stenosis or occlusion. Scattered segments of significant stenosis of the internal iliac arteries bilaterally. At herosclerotic external iliac arteries without significant stenosis or occlusion. Extensive atherosclerotic calcification of the right common femoral, deep femoral and superficial fem oral arteries. Short segment of about 50% stenosis is seen within the inferior aspect of the right garvin perficial femoral artery and extending to the proximal portion of the popliteal artery, extending for about 4.4 cm yet patent distally. Mild to moderate stenosis of the midportion of the right popliteal artery yet patent distally. Atherosclerotic tibioperoneal trunk and leg arteries yet opacified down to the ankle. Atherosclerotic calcifications of the left common femoral, deep femoral and superficial femoral arter y without significant stenosis or occlusion. Atherosclerotic left popliteal artery with almost comple te occlusion of its most inferior aspect extending for about 4 cm down to its bifurcation. The left l eg arteries are atherosclerotic yet are opacified down to the ankle. The dorsalis pedis artery is not seen opacified bilaterally. Opacified plantar arteries bilaterally. No definite hepatic focal lesion. Unremarkable gallbladder, spleen, pancreas and right adrenal. Stabl e left adrenal adenoma. Multiple variable sized bilateral renal cysts without gross suspicious featur es. The urinary bladder is not distended. Unremarkable prostate and seminal vesicles. Unremarkable no ndistended stomach, duodenum and small bowel. Moderate fecal loading of the colon. No suspicious lymp hadenopathy or sizable ascites. Unremarkable lung bases. Asymmetrical soft tissue swelling, subcutane ous fat stranding and reactive fluid of the inferior aspect of the left leg down to the dorsum of the foot, possibly related to ischemia. Please correlate clinically. No definite enhancing collection is seen at that location. No aggressive bone lesion. IMPRESSION: 1. Complete occlusion of the inferior aspect of the left popliteal artery down to its bifurcation yet the leg arteries are patent distally as described above. 2. About 50% stenosis of the right superficial femoral artery and the proximal portion of the poplite al artery yet patent distally as described above. Other arterial atherosclerotic changes as described above 3. Stable infrarenal abdominal aortic ectasia without significant interval progression. Other inciden jessenia findings as detailed above.
== END | disposition home or self-care (01) ==
LOC: RADCTMAIN 11:28
PROVIDERS: ATTEND Surgery
DX: I77.1 Stricture of artery (principal); I71.4 Abdominal aortic aneurysm, without rupture
CPT/HCPCS: 82565; 84520; 75635; 36415; Q9967

== ENCOUNTER 2021-05-31 06:26 | Day surgery (SDC) | payer OTHER ==
[2021-05-30 13:24] VITALS: BMI 28.1
[~2021-05-31 06:26] MED LIST changes: +ALPRAZolam 0.25 MG TAB PO PRN; +ASPIRIN 325 MG TAB PO PRN; -LACTATED RINGERS 1,000 ML IV SCH; -LIDOCAINE 1% 20 ML VIAL (10MG/ML) FOR IV START INTRADERMA PRN; +SODIUM CHLORIDE 0.9% 1,000 ML in EMPTY BAG 1 BAG IV ONE
[2021-05-31 06:50] VITALS: RESP 18; TEMP 97.9
[2021-05-31 06:53] LABS: Glucose,Whole Blood 171 mg/dL (75-99)
[2021-05-31 06:56] LABS: Basophils % (A) 0 %; Eosinophils # (A) 0.1 k/uL (0-0.7); Eosinophils % (A) 1 %; HGB 16.6 gm/dL (13.0-17.5); Lymphocytes # (A) 2.2 k/uL (1.0-4.8); Lymphocytes % (A) 28 %; MCH 29.8 pg (25.0-35.0); MCHC 31.9 g/dL (31.0-37.0); MCV 93.3 fL (80.0-100.0); Mean Platelet Volume 8.2; Monocytes # (A) 0.5 k/uL (0-1.0); Monocytes % (A) 6 %; Neutrophils % (A) 63 %; Platelet Count 254 k/uL (150-450); RBC 5.57 m/uL (4.30-5.90); RDW 15.6 % (11.5-15.5); WBC 7.9 k/uL (3.8-10.6)
[2021-05-31 07:01] LABS: INR 1.6 (<1.2); Prothrombin Time 16.5 sec (9.0-12.0)
[2021-05-31 07:16] LABS: Calcium 9.1 mg/dL (8.4-10.2); Potassium 3.8 mmol/L (3.5-5.1)
[2021-05-31] MEDS ORDERED: MIDAZOLAM 2 MG/2 ML VIAL IV ONE (08:06)
[2021-05-31] MEDS ORDERED: LIDOCAINE 1% INJ 10MG/ML (20 ML MDV) SQ ONE (08:10)
[2021-05-31] MEDS ORDERED: HEPARIN SODIUM 1,000 UN/ML (10ML VL) IV ONE (08:45)
[2021-05-31] MEDS ORDERED: fentaNYL (PF) 50 MCG/ML 2 ML AMP IV ONE (09:05)
[2021-05-31] MEDS ORDERED: IOPAMIDOL-250 100ML BTL INTRAARTER ONE ×2 (09:28)
[2021-05-31] MEDS ORDERED: CLOPIDOGREL 75 MG TAB PO ONE (09:30)
[2021-05-31] MEDS ORDERED: CLOPIDOGREL 75 MG TAB PO SCH (09:45)
--- NOTE | 2021-05-31 10:09 | P.OP ---
Date of Procedure: 05/31/21 Preoperative Diagnosis: Left popliteal occlusion with secondary lifestyle limiting left calf claudication. Postoperative Diagnosis: #1: Left popliteal artery stenosis. #2: Occlusion left tibial peroneal trunk. #3: High-grade origin stenosis of the left peroneal artery. #4: Occlusion left anterior tibial artery just distal to its origin. Procedure(s) Performed: #1: Ultrasound-guided cannulation right common femoral artery. #2: Abdominal aortogram with runoffs of the femoral, popliteal and tibial arterial segments bilaterally. #3: Selective catheterization left popliteal artery from a contralateral approach. #4: Selective left lower extremity angiography. #5: Balloon dilation left tibial peroneal and anterior tibial artery. #6: Balloon dilation left peroneal artery. Implants: None. Anesthesia: MAC (50 g of fentanyl IV as well as 2 mg of Versed IV.), local (1% Xylocaine) Surgeon: Rock Rob Estimated Blood Loss (ml): 20 Urine output (ml): 0 Pathology: none sent Condition: stable Disposition: no change Indications for Procedure: Patient is a 71-year-old male who presented with a complaint of left calf claudication which he described as lifestyle limiting for him. Physical examination revealed femoral pulse on the left with the popliteal, DP and PT pulses to be absent. Arterial Doppler was performed which demonstrated a RODNEY of approximately 0.6 and other findings consistent with femoral/popliteal arterial occlusive disease. Patient did undergo CT angiogram which demonstrated atherosclerotic change of the distal popliteal segment. This was discussed with the patient in detail. Options of continued medical management versus attempt at percutaneous intervention. Patient was to attempt percutaneous intervention. The procedure, risk and benefits were discussed in great detail and consent form was signed by the patient. Description of Procedure: Patient was brought to special procedure suite. Both groins are sterilely prepped and draped in usual manner. A shunt did receive 50 g of fentanyl as well as 2 mg of Versed intravenously. Utilizing ultrasound the right femoral artery was identified. 1% Xylocaine was utilized for local anesthesia of the tissues overlying the artery. Through this anesthetized area and with the aid of ultrasound a multipurpose needle was utilized cannulate the artery. Once cannulated Softip guidewire was advanced. The needle was withdrawn and a 5-Malay sheath was placed. A guidewire and pigtail catheter were advanced and positioned at the L1-L2 interspace. The guidewire was withdrawn and utilizing the power injector abdominal aortogram followed by femoral, popliteal and tibial runoffs were performed. Findings abdominal aortogram demonstrates single renal arteries bilaterally without evidence of significant atherosclerotic change. Mesenteric vessels as visualized likewise are unremarkable. The aorta distally demonstrated some irregularity but there is no evidence of hemodynamically significant stenosis. Right iliac angiography demonstrates stenosis of the common segment near the bifurcation of the internal/external segment. The internal and remaining portion external segment appears unremarkable. Right femoral angiography demonstrates the common profundus and superficial femoral arteries to be patent. The SFA demonstrates some stenosis at the level of the adductor canal. However this does not appear to be of hemodynamic significance. Right popliteal angiography demonstrates the popliteal artery to be unremarkable. Right tibial angiography demonstrates the anterior tibial posterior tibial and peroneal arteries to be unremarkable the anterior posterior tibial arteries are visualized crossing the ankle mortise. Left iliac angiography demonstrates the common external and internal segments to be essentially unremarkable. Left femoral angiography demonstrates the common profundus and the SFA to be essentially unremarkable. Left popliteal angiography demonstrates a 6070% stenosis of the popliteal artery at the mid popliteal level. The distal popliteal artery is occluded as is the tibial peroneal trunk. High-grade stenosis is identified at the origin of the anterior tibial artery and the artery does appear to occlude in the upper third of the calf level. The peroneal and posterior tibial arteries and straight proximal stenosis. Intervention: It was decided to attempt a balloon dilation of the occluded tibioperoneal trunk. A 5-Malay sheath was exchanged for a 6-Malay up and over sheath which was eventually positioned in the mid SFA level on the contralateral side. Patient did receive 3000 units of heparin intravenously. Planing angiography was performed. Under fluoroscopic guidance a 0.035 inch Glidewire was advanced through the occluded tibioperoneal trunk and into the posterior tibial artery. This was then followed by advancement of a angled glide catheter across the lesion into the posterior tibial artery. The guidewire was exchanged for 0.014 guide wire and the angled glide catheter was then exchanged for a 2.5 mm balloon catheter. This was utilized to balloon dilate the tibial peroneal trunk and the origin of the anterior tibial artery. Completion angiogram demonstrated good result. The balloon catheter was then exchanged for a angled glide catheter this was utilized to cannulate the origin of the peroneal artery. The glide catheter was exchanged for the 2.5 mm balloon catheter this was utilized to balloon dilate the origin of the anterior tibial artery. Completion angiogram demonstrated good medical result with good flow through the posterior tibial and peroneal arterial segments. The mid popliteal artery stenosis was then treated with a 5 mm x 40 mm drug- eluting balloon. Completion angiogram demonstrated good result with no flow- limiting lesion. Angiography of the mid and distal tibial arteries was performed. This demonstrated the posterior tibial and peroneal arteries to be normally patent and are visualized crossing the ankle mortise. The peroneal artery does provide flow to the anterior tibial artery. With the above findings noted the sheath was withdrawn and a vascular device was utilized to seal the puncture entry site. Total fluoroscopy time 10.9 minutes. Total contrast fine 140 ML's of Isovue 250. Total conscious sedation time 26 minutes.
--- NOTE | 2021-05-31 11:35 | IR ---
EXAMINATION TYPE: IR sea captain tibioperoneal branchs DATE OF EXAM: 05/31/2021 COMPARISON: NONE HISTORY: Fluoroscopy time. Fluoroscopy was provided to the referring clinician.
[2021-05-31 14:19] VITALS: BP 161/85; PULSE 66
== END 2021-05-31 14:22 | disposition home or self-care (01) ==
LOC: CATHCVL 06:26
PROVIDERS: ATTEND Surgery
DX: I70.212 Atherosclerosis of native arteries of extremities with intermittent claudication, left leg (principal); I77.1 Stricture of artery; M19.90 Unspecified osteoarthritis, unspecified site; I48.91 Unspecified atrial fibrillation; I51.7 Cardiomegaly; H26.9 Unspecified cataract; J44.9 Chronic obstructive pulmonary disease, unspecified; I65.29 Occlusion and stenosis of unspecified carotid artery; H40.9 Unspecified glaucoma; I11.9 Hypertensive heart disease without heart failure; E78.5 Hyperlipidemia, unspecified; I25.2 Old myocardial infarction; I25.10 Atherosclerotic heart disease of native coronary artery without angina pectoris; E11.51 Type 2 diabetes mellitus with diabetic peripheral angiopathy without gangrene; F43.10 Post-traumatic stress disorder, unspecified; G47.30 Sleep apnea, unspecified; Z86.73 Personal history of transient ischemic attack (TIA), and cerebral infarction without residual deficits; Z85.118 Personal history of other malignant neoplasm of bronchus and lung; Z92.3 Personal history of irradiation; Z90.49 Acquired absence of other specified parts of digestive tract; Z95.0 Presence of cardiac pacemaker; Z95.5 Presence of coronary angioplasty implant and graft; Z95.810 Presence of automatic (implantable) cardiac defibrillator; F17.210 Nicotine dependence, cigarettes, uncomplicated; Z79.01 Long term (current) use of anticoagulants; Z79.84 Long term (current) use of oral hypoglycemic drugs; Z79.4 Long term (current) use of insulin; Z79.899 Other long term (current) drug therapy
CPT/HCPCS: 36245; 37228; 37232; 75625; 75716; 80048; 85025; 85610; C1894 ×3; C1769 ×6; C1725; C2623; C1760; J2250; J2001; J3010; J1644; Q9966; 37224

== ENCOUNTER → 2021-09-04 | Outpatient (CLI) | payer OTHER ==
--- NOTE | 2021-09-04 15:58 | CT ---
EXAMINATION TYPE: CT chest wo con DATE OF EXAM: 09/04/2021 INDICATION: Malignant neoplasm of upper lobe, right bronchus CT DLP: 556 mGy.cm Automated Exposure Control for Dose Reduction was Utilized. TECHNIQUE AND CONTRAST: CT scan of the chest without IV contrast administration. COMPARISON: CT dated 03/14/2021 FINDINGS: Persistent irregular lesion at the lateral aspect of the right upper lobe measuring 10 x 14 compared to 13 x 13 mm previously. More fibrotic changes, spiculation and infiltration are seen adjacent to th e lesion which could be related to postradiation changes however local tumor progression cannot be ex cluded. Persistent COPD changes. Stable calcified granuloma in the right lower lobe and left upper lo be. No new or other progressive lung lesion. Patent trachea and main bronchi. No pleural effusion. No gross cardiomegaly. Left upper chest wall dual-lead pacemaker. No pericardial effusion. Coronary a nd atherosclerotic calcifications. Suspected calcified infarction of the left ventricular wall. No pa thologically enlarged lymph nodes in the chest by this nonenhanced CT scan. Stable thickened left adr enal. Right renal hypodensities, possibly representing renal cysts. No gross aggressive bone lesion. IMPRESSION: Minimal interval changes regarding the size of the known right upper lobe lesion however there is pro gression in the surrounding lung parenchymal changes as detailed above which could be related to post radiation changes however local tumor progression or lymphangitis carcinomatosis cannot be excluded. Attention on follow-up. No new or progressive lung lesion identified otherwise. Other findings as misti cribed above.
== END | disposition home or self-care (01) ==
LOC: RADCTMAIN 11:51
PROVIDERS: ATTEND Radiology Radiation Oncology
DX: C34.11 Malignant neoplasm of upper lobe, right bronchus or lung (principal)
CPT/HCPCS: 71250

== ENCOUNTER → 2022-02-19 | Outpatient (CLI) | payer OTHER | END | disposition home or self-care (01) | LOC: LABWHC1 11:13 | PROVIDERS: ATTEND Urology | DX: R97.20 Elevated prostate specific antigen [PSA] (principal) | CPT/HCPCS: 36415; 84153 ==

== ENCOUNTER → 2022-03-27 | Outpatient (CLI) | payer OTHER ==
--- NOTE | 2022-03-27 09:59 | CT ---
EXAMINATION TYPE: CT chest wo con CT DLP: 439.6 mGycm, Automated exposure control for dose reduction was used. DATE OF EXAM: 03/27/2022 9:26 AM COMPARISON: 09/04/2021 CT chest, 03/14/2021 CT chest, PET/CT 09/09/2020. CLINICAL INDICATION:Male, 72 years old with history of C34.11 malignant neoplasm lung;, Lung cancer TECHNIQUE: Multiple axial images were obtained through the chest. Sagittal and coronal reformats were created for review. Contrast used: none Oral contrast used: none. FINDINGS: LUNGS/ PLEURA: Moderate emphysema changes are present. No focal consolidation, pneumothorax or pleura l effusion. * Right upper lobe pulmonary nodule measuring up to 13 x 13 mm which is not significantly changed fr om immediate prior given differences in measuring technique. * An additional more anterior consolidation nodular opacity is present just anterior to this lesion measuring up to 12 mm which is not, previously 5 mm and more along the pleura on prior. * Stable right lower lobe 5 mm pulmonary nodule series 4 image 49. * Stable right lower lobe 5 mm pulmonary nodule series 4 image 43. * Left upper lobe calcified granuloma. AIRWAY: Patent and unremarkable. HEART: The heart is mildly enlarged for size. Lipomatous hypertrophy changes of the interatrial septu m. Left ventricular wall calcifications. MEDIASTINUM: No gross evidence of adenopathy. VASCULATURE: No aortic aneurysm. Atherosclerosis of the arterial vasculature. MUSCULOSKELETAL: No acute osseous abnormalities, multilevel disc degeneration changes with osteophyte formation. SOFT TISSUES/LYMPH NODES: Left chest wall cardiac conduction device with leads entering the right birgit tricle and atrium. LOWER NECK: No significant findings. UPPER ABDOMEN: No significant findings. IMPRESSION: 1. Stable size of right upper lobe upper lateral pulmonary nodule that was FDG avid on prior PET 08/23. No evidence of new lymphadenopathy. 2. More anterior to the pulmonary nodule mentioned in #1 is a 11 mm pulmonary nodule that is more co nspicuous on today's exam and may represent satellite malignancy. Consider short-term follow-up CT an d/or immediate PET/CT. 3. Stable additional subcentimeter pulmonary nodules.
== END | disposition home or self-care (01) ==
LOC: RADCTMAIN 09:07
PROVIDERS: ATTEND Radiology Radiation Oncology
DX: C34.11 Malignant neoplasm of upper lobe, right bronchus or lung (principal); J44.9 Chronic obstructive pulmonary disease, unspecified; R91.8 Other nonspecific abnormal finding of lung field; Z92.3 Personal history of irradiation
CPT/HCPCS: 71250

== ENCOUNTER → 2022-09-13 | Outpatient (CLI) | payer OTHER ==
--- NOTE | 2022-09-13 10:25 | XR ---
EXAMINATION TYPE: XR chest 2V DATE OF EXAM: 09/13/2022 COMPARISON: 07/18/2017 TECHNIQUE: PA and lateral views submitted. HISTORY: Prostate cancer FINDINGS: The lungs are clear and there is no pneumothorax, pleural effusion, or focal pneumonia. Heart size normal and no overt failure. Osseous structures demonstrate hypertrophic and degenerative changes of the spine. Irregular lesion in the right upper lobe measuring 2.7 cm. Coarsened interstitium. Atheros clerotic change aorta with the lead cardiac device. Hyperinflation suggests COPD. IMPRESSION: 1. COPD with 2.7 cm irregular lesion right upper lobe suspicious for neoplasm recommend CT of the [facility] [address]. 2. Correlate for chronic interstitial pulmonary fibrosis.. A Yellow level critical message alert has been initiated for Cesar Chase MD via the [facility] Critical Results System on 09/13/2022 10:22 AM. This message alert has been sent to Cesar Chase MD via the preferences provided by the clinician for the receipt of Radiology Critical Findings. Mess age ID [id number].
[2022-09-13 10:26] LABS: African American GFR (CKD) 61 (>60 ml/min/1.73 sqM); Blood Urea Nitrogen 23 mg/dL (9-20); Non-African American GFR(CKD) 53 (>60 ml/min/1.73 sqM)
--- NOTE | 2022-09-13 12:56 | CT ---
EXAMINATION TYPE: CT abdomen pelvis w con DATE OF EXAM: 09/13/2022 COMPARISON: 03/27/2022 CT chest, 05/16/2021 HISTORY: follow up prostate ca CT DLP: 1231.2 mGycm Automated exposure control for dose reduction was used. CONTRAST: CT scan of the abdomen pelvis is performed with IV Contrast, patient injected with 80 mL of Isovue 30 0. FINDINGS- LUNG BASES- previously noted pulmonary nodules would not be included in field of view. There is bila teral marked peribronchial associated with bronchitis or interstitial bronchiolitis cardiac lesions s een within the right ventricle. There is calcification along the posterior margin of the left ventric le which can be associated with myocardial calcinosis and previous myocardial infarction. LIVER/GB- No gross abnormality is appreciated. PANCREAS- No gross abnormality is seen. SPLEEN- No gross abnormality is seen. ADRENALS- stable incidental 1 cm left adrenal nodule. KIDNEYS/BLADDER-bilateral simple appearing renal cysts Bosniak classification I. no hydronephrosis or lysis. Nonspecific perinephric stranding is seen with chronic medical renal disease or chronic infec tion correlate clinically. Calcification within the hilum of the left kidney appears vascular. There is mild concentric wall thickening of the bladder related to cystitis. Prostate gland measures 3.4 cm and appears homogeneous. BOWEL- nonspecific LYMPH NODES- No greater than 1cm abdominal or pelvic lymph nodes are appreciated. OSSEOUS STRUCTURES- sclerotic focus involving the left femur still most likely represents a small heather [place]. There is arthropathy of the hips and multilevel hypertrophic and degenerative change spine . OTHER- foraminal ectasia of the aorta measuring a maximal dimension of 2.8 cm. There is extensive at herosclerotic change of the common iliac, external and internal iliac arteries with significant steno ses suspected. IMPRESSION- 1. No diagnostic evidence of metastases. 2. Chronic peribronchial thickening could be on the basis of a chronic bronchitis or bronchiolitis. 3 correlate for mild cystitis.
--- NOTE | 2022-09-13 15:07 | NM ---
EXAMINATION TYPE: NM bone scan whole body DATE OF EXAM: 09/13/2022 COMPARISON: NONE CLINICAL INDICATION: Male, 72 years old with history of C61 prostate ca; Delayed whole-body scanning was performed following the injection of 20 mCi Tc 99m MDP. Images acqui red 3.5 hours post injection. FINDINGS: Mild intensity uptake throughout the thoracic spine is concordant with CT findings of multilevel dege nerative disc disease. Mild uptake involving the bilateral hip compatible with arthropathy. Mild intensity uptake bilateral shoulder compatible with arthropathy. IMPRESSION: No suspicious uptake for metastases.
== END | disposition home or self-care (01) ==
LOC: RADCTMAIN 09:33
PROVIDERS: ATTEND Urology
DX: C61 Malignant neoplasm of prostate (principal); J44.9 Chronic obstructive pulmonary disease, unspecified; J98.09 Other diseases of bronchus, not elsewhere classified
CPT/HCPCS: 82565; 84520; 71046; 74177; 36415; 78306; A9503; Q9967

== ENCOUNTER 2022-09-14 10:56 | Emergency (ER) | payer OTHER ==
[2022-09-14] MEDS ORDERED: IPRATROPIUM-ALBUTEROL 3 ML NEB INHALATION STA (12:24)
[2022-09-14] MEDS ORDERED: DEXAMETHASONE SOD PHOSPHATE 10 MG/ML 1 ML VIAL IV STA (12:24)
--- NOTE | 2022-09-14 12:27 | ED ---
General Adult HPI - General Chief complaint: Shortness of Breath Stated complaint: YANDY Time Seen by Provider: 09/14/22 11:30 Source: patient Mode of arrival: ambulatory Limitations: no limitations - History of Present Illness Initial comments: Dictation was produced using [employer] dictation software. please excuse any grammatical, word or spelling errors. Chief Complaint: 72-year-old male with COPD presents to the ER for shortness of breath History of Present Illness: Patient 72-year-old male presents emergency Department shortness of breath. Cough. Patient is a half pack a day smoker. Does not have a telephone maintainer. Denies any fevers. Has had imaging done yesterday secondary to elevated PSA levels. Patient states that he has a chronic wheeze. Does not wear any home O2. The ROS documented in this emergency department record has been reviewed and confirmed by me. Those systems with pertinent positive or negative responses have been documented in the HPI. All other systems are other negative and/or noncontributory. - Related Data Home Medications Medication Instructions Recorded Confirmed Atorvastatin [Lipitor] 80 mg PO HS 08/11/16 09/14/22 Insulin Glargine [Lantus Vial] 35 unit SQ HS 07/18/17 09/14/22 Sacubitril/Valsartan [Entresto 24 1 tab PO BID 07/18/17 09/14/22 mg-26 mg Tablet] Amiodarone [Cordarone] 100 mg PO DAILY 05/30/21 09/14/22 Levothyroxine Sodium [Synthroid] 50 mcg PO QAM 05/30/21 09/14/22 Metoprolol Succinate [Toprol XL] 300 mg PO DAILY 09/14/22 09/14/22 Omeprazole [PriLOSEC] 20 mg PO DAILY 09/14/22 09/14/22 Semaglutide [Ozempic] 0.5 mg SQ Q7D 09/14/22 09/14/22 Warfarin [Coumadin] 3 mg PO DIRECTED 09/14/22 09/14/22 Previous Rx's Medication Instructions Recorded Furosemide [Lasix] 40 mg PO BID@0900,1600 #60 tab 04/17/17 Amoxic-Pot Clav 875-125Mg 1 tab PO BID 7 Days #14 tab 09/14/22 [Augmentin 875-125] Azithromycin [Zithromax Z Pack] 1 tab PO DIRECTED #6 tab 09/14/22 Allergies Allergy/AdvReac Type Severity Reaction Status Date / Time No Known Allergies Allergy Verified 09/14/22 13:36 Review of Systems ROS Statement: Those systems with pertinent positive or pertinent negative responses have been documented in the HPI. ROS Other: All systems not noted in ROS Statement are negative. Past Medical History Past Medical History: Atrial Fibrillation, COPD, CVA/TIA, Diabetes Mellitus, Eye Disorder, GI Bleed, Hyperlipidemia, Hypertension, Osteoarthritis (OA), Pneumonia, Prostate Disorder, Sleep Apnea/CPAP/BIPAP, Thyroid Disorder, Vascular Disorder Additional Past Medical History / Comment(s): IDDM type II, CVAs X2 with L sided weakness which resolved, carotid disease, afib with RVR, ischemic cardiomyopathy, vtach, SSS with pacer, silent AK per echocardiogram, chronic CHF, tracheobronchitis, lower GI bleed post colonoscopy/polypectomy, HUDSON-no longer wears device, mild arthritis multiple joints, bilateral eyes with starting of cataracts and glaucoma. "2 spots on lung had radiation in Dec 2020". History of Any Multi-Drug Resistant Organisms: None Reported Past Surgical History: AICD, Appendectomy, Heart Catheterization With Stent, P acemaker Additional Past Surgical History / Comment(s): EPS-told needed VT ablation but decided not to have done, dual pacer/defibrillator, PCIs with total of 3 stents- done at [facility], colonoscopies/benign polypectomies. Past Anesthesia/Blood Transfusion Reactions: No Reported Reaction, Motion Sickness Date of Last Stent Placement:: 3 STENTS LAST ONE ABOUT 4-5 YEARS AGO AT THE [facility] in [place] Type of Cardiac Device: Permanent Pacemaker, AICD Device Placement Date:: 08/14/16 Past Psychological History: PTSD Smoking Status: Current every day smoker Past Alcohol Use History: None Reported Past Drug Use History: None Reported - Past Family History Mother Family Medical History: Congestive Heart Failure (CHF) General Exam - General Exam Comments Initial Comments: PHYSICAL EXAM: General Impression: Alert and oriented x3, not in acute distress HEENT: Normocephalic atraumatic, extra-ocular movements intact, pupils equal and reactive to light bilaterally, mucous membranes moist. Cardiovascular: Heart regular rate and rhythm Chest: Diffuse end expiratory wheezing Abdomen: abdomen soft, non-tender, non-distended, no organomegaly Musculoskeletal: Pulses present and equal in all extremities, no peripheral edema Motor: no focal deficits noted Neurological: CN II-XII grossly intact, no focal motor or sensory deficits noted Skin: Intact with no visualized rashes Psych: Normal affect and mood Limitations: no limitations Course Vital Signs 09/14/22 09/14/22 09/14/22 11:14 11:42 12:49 Temperature 99.3 F Pulse Rate 135 H 107 H Respiratory 22 20 22 Rate Blood Pressure 130/74 125/97 O2 Sat by Pulse 85 L 96 Oximetry 09/14/22 09/14/22 13:06 13:15 Temperature Pulse Rate 101 H 110 H Respiratory Rate Blood Pressure O2 Sat by Pulse Oximetry Medical Decision Making - Medical Decision Making Was pt. sent in by a medical professional or institution (Dr. PA, TAPE EDITOR, urgent care, hospital, or care home...) When possible be specific @ -No Did you speak to anyone other than the patient for history (EMS, parent, family, police, friend...)? What history was obtained from this source @ - at the bedside states that patient's been dyspneic and coughing Did you review nursing and triage notes (agree or disagree)? Why? @ -I reviewed and agree with nursing and triage notes Were old charts reviewed (outside hosp., previous admission, EMS record, old EKG, old radiological studies, urgent care reports/EKG's, care home records)? Report findings @ -No old charts were reviewed Differential Diagnosis (chest pain, altered mental status, abdominal pain women, abdominal pain men, vaginal bleeding, musculoskeletal, weakness, fever, dyspnea, syncope, headache, dizziness, GI bleed, back pain, seizure, CVA, palpatations, mental health)? @ -DDifferential Dyspnea: Coronary syndrome, arrhythmia, tamponade, asthma, COPD, pulmonary embolism, pneumonia, pneumothorax, pulmonary effusion, anaphylaxis, diabetic ketoacidosis, flailed chest, pulmonary contusion, diaphragmatic rupture, anemia, neuromuscular, this is not meant to be an all-inclusive list. EKG interpreted by me (3pts min.). @ -My EKG interpretation: Ventricular rate 110, A. fib, QRS 150, QTc 433. No [place] prolongation, no QTC prolongation, no ST or T-wave changes noted. X-rays interpreted by me (1pt min.). @ -Chest x-ray shows irregular lesion at the right upper lobe CT interpreted by me (1pt min.). @ -Computed tomography scan of the chest shows irregular lesion in the right upper lobe suspicious for neoplasm and or pneumonia U/S interpreted by me (1pt. min.). @ -None done What testing was considered but not performed or refused? (CT, X-rays, U/S, labs)? Why? @ -None What meds were considered but not given or refused? Why? @ -None Did you discuss the management of the patient with other professionals (professionals i.e. , PA, TAPE EDITOR, lab, RT, psych nurse, licensed master social worker, horticultural nursery assistant, teacher, consumer safety officer, business case analyst)? Give summary @ -No Was smoking cessation discussed for >3mins.? @ -No Was critical care preformed (if so, how long)? @ -No Were there social determinants of health that impacted care today? How? (Homelessness, low income, unemployed, alcoholism, drug addiction, transportation, low edu. Level, literacy, decrease access to med. care, senior living, rehab)? @ -No Was there de-escalation of care discussed even if they declined (Discuss DNR or withdrawal of care, Hospice)? DNR status @ -No What co-morbidities impacted this encounter? (DM, HTN, Smoking, COPD, CAD, Cancer, CVA, ARF, Chemo, Hep., AIDS, mental health diagnosis, sleep apnea, morbid obesity)? @ -None Was patient admitted / discharged? Hospital course, mention meds given and route, prescriptions, significant lab abnormalities, going to OR and other pertinent info. @ -72-year-old male presents emergency department for dyspnea. Patient has multiple comorbidities. Vital signs upon arrival shows 85% on room air. Heart rate 130s. Patient put on 2 L nasal cannula with improvement of oxygenation. Patient mildly tachycardic. Patient's history of A. fib and is rate controlled at bedside. Laboratory evaluation obtained. CBC d-dimer metabolic panel is unremarkable. Viral study is negative. X-ray shows irregular suspicious mass in the right upper avalos seem seen on CT films. Discussed patient that like to be admitted for further care however he refuses admission. Patient oxygenation is stable. He understands that condition. Acutely worsened including worsening hypoxia. Patient absolutely does not want to be admitted. He understands risks and benefits he wants to attempt to do with his issues with his primary care doctor. Encouraged to return to the emergency department if his symptoms get worse. Patient discharged with prescription for antibiotics. Undiagnosed new problem with uncertain prognosis? @ -No Drug Therapy requiring intensive monitoring for toxicity (Heparin, Nitro, Insulin, Cardizem)? @ -No Were any procedures done? @ -No Diagnosis/symptom? Acute, or Chronic, or Acute on Chronic? Uncomplicated (without systemic symptoms) or Complicated (systemic symptoms)? @ -1. Hypoxic respiratory failure secondary to pneumonia versus neoplasm Side effects of treatment? @ -No Exacerbation, Progression, or Severe Exacerbation? @ -No Poses a threat to life or bodily function? How? (Chest pain, USA, AK, pneumonia, PE, COPD, DKA, ARF, appy, cholecystitis, CVA, Diverticulitis, Homicidal, Suicidal, threat to staff... and all critical care pts) @ -yes - Lab Data Result diagrams: 09/14/22 12:45 09/14/22 12:45 Lab Results 09/14/22 09/14/22 09/14/22 Range/Units 12:45 12:45 12:45 WBC 7.6 (3.8-10.6) k/uL RBC 5.09 (4.30-5.90) m/uL Hgb 14.3 (13.0-17.5) gm/dL Hct 45.3 (39.0-53.0) % MCV 89.1 (80.0-100.0) fL MCH 28.2 (25.0-35.0) pg MCHC 31.7 (31.0-37.0) g/dL RDW 15.0 (11.5-15.5) % Plt Count 238 (150-450) k/uL MPV 9.0 Neutrophils % 72 % Lymphocytes % 14 % Monocytes % 11 % Eosinophils % 0 % Basophils % 0 % Neutrophils # 5.5 (1.3-7.7) k/uL Lymphocytes # 1.0 (1.0-4.8) k/uL Monocytes # 0.9 (0-1.0) k/uL Eosinophils # 0.0 (0-0.7) k/uL Basophils # 0.0 (0-0.2) k/uL D-Dimer 0.58 (<0.60) mg/L FEU Sodium 137 (137-145) mmol/L Potassium 4.1 (3.5-5.1) mmol/L Chloride 101 (98-107) mmol/L Carbon Dioxide 26 (22-30) mmol/L Anion Gap 10 mmol/L BUN 23 H (9-20) mg/dL Creatinine 1.26 H (0.66-1.25) mg/dL Est GFR (CKD-EPI)AfAm 65 (>60 ml/min/1.73 sqM) Est GFR (CKD-EPI)NonAf 56 (>60 ml/min/1.73 sqM) Glucose 107 H (74-99) mg/dL Calcium 8.8 (8.4-10.2) mg/dL Troponin I (0.000-0.034) ng/mL Influenza Type A (PCR) (Not Detectd) Influenza Type B (PCR) (Not Detectd) RSV (PCR) (Not Detectd) SARS-CoV-2 (PCR) (Not Detectd) 09/14/22 09/14/22 Range/Units 12:45 12:47 WBC (3.8-10.6) k/uL RBC (4.30-5.90) m/uL Hgb (13.0-17.5) gm/dL Hct (39.0-53.0) % MCV (80.0-100.0) fL MCH (25.0-35.0) pg MCHC (31.0-37.0) g/dL RDW (11.5-15.5) % Plt Count (150-450) k/uL MPV Neutrophils % % Lymphocytes % % Monocytes % % Eosinophils % % Basophils % % Neutrophils # (1.3-7.7) k/uL Lymphocytes # (1.0-4.8) k/uL Monocytes # (0-1.0) k/uL Eosinophils # (0-0.7) k/uL Basophils # (0-0.2) k/uL D-Dimer (<0.60) mg/L FEU Sodium (137-145) mmol/L Potassium (3.5-5.1) mmol/L Chloride (98-107) mmol/L Carbon Dioxide (22-30) mmol/L Anion Gap mmol/L BUN (9-20) mg/dL Creatinine (0.66-1.25) mg/dL Est GFR (CKD-EPI)AfAm (>60 ml/min/1.73 sqM) Est GFR (CKD-EPI)NonAf (>60 ml/min/1.73 sqM) Glucose (74-99) mg/dL Calcium (8.4-10.2) mg/dL Troponin I <0.012 (0.000-0.034) ng/mL Influenza Type A (PCR) Not Detected (Not Detectd) Influenza Type B (PCR) Not Detected (Not Detectd) RSV (PCR) Not Detected (Not Detectd) SARS-CoV-2 (PCR) Not Detected (Not Detectd) Disposition Clinical Impression: Pneumonia, Lung mass Disposition: HOME SELF-CARE Condition: Fair Instructions (If sedation given, give patient instructions): Lung Cancer (DC), Community Acquired Pneumonia (ED) Prescriptions: Amoxic-Pot Clav 875-125Mg [Augmentin 875-125] 1 tab PO BID 7 Days #14 tab Azithromycin [Zithromax Z Pack] 1 tab PO DIRECTED #6 tab Is patient prescribed a controlled substance at d/c from ED?: No Referrals: [facility],Clinic [Primary Care Provider] - 1-2 days
[2022-09-14 12:50] LABS: Basophils % (A) 0 %; Eosinophils % (A) 0 %; HCT 45.3 % (39.0-53.0); HGB 14.3 gm/dL (13.0-17.5); Lymphocytes % (A) 14 %; MCH 28.2 pg (25.0-35.0); MCHC 31.7 g/dL (31.0-37.0); MCV 89.1 fL (80.0-100.0); Monocytes # (A) 0.9 k/uL (0-1.0); Monocytes % (A) 11 %; Neutrophils # (A) 5.5 k/uL (1.3-7.7); Neutrophils % (A) 72 %; Platelet Count 238 k/uL (150-450); RBC 5.09 m/uL (4.30-5.90); WBC 7.6 k/uL (3.8-10.6)
--- NOTE | 2022-09-14 13:06 | XR ---
EXAMINATION TYPE: XR chest 2V DATE OF EXAM: 09/14/2022 COMPARISON: 09/13/2022 TECHNIQUE: PA and lateral views submitted. HISTORY: Cough FINDINGS: The lungs are clear and there is no pneumothorax, pleural effusion, or focal pneumonia. Heart size no rmal and no overt failure. Osseous structures demonstrate hypertrophic and degenerative changes of th e spine. Irregular lesion in the right upper lobe measuring 2.7 cm. Coarsened interstitium. Atheroscl erotic change aorta with the lead cardiac device. Hyperinflation suggests COPD. IMPRESSION: 1. COPD with 2.7 cm irregular lesion right upper lobe suspicious for neoplasm recommend [facility]. 2. Correlate for chronic interstitial pulmonary fibrosis..
[2022-09-14 13:07] LABS: African American GFR (CKD) 65 (>60 ml/min/1.73 sqM); Anion Gap 10 mmol/L; Blood Urea Nitrogen 23 mg/dL (9-20); Calcium 8.8 mg/dL (8.4-10.2); Carbon Dioxide 26 mmol/L (22-30); Chloride 101 mmol/L (98-107); Glucose 107 mg/dL (74-99); Non-African American GFR(CKD) 56 (>60 ml/min/1.73 sqM); Potassium 4.1 mmol/L (3.5-5.1); Sodium 137 mmol/L (137-145)
--- NOTE | 2022-09-14 14:42 | CT ---
EXAMINATION TYPE: CT angio chest DATE OF EXAM: 09/14/2022 COMPARISON: 03/27/2022 HISTORY: SOB, elevated d-dimer, cardiac hx. CT DLP: 404 mGycm CONTRAST: CT chest with contrast and 3D reconstruction with MIP imaging is performed with IV Contrast, patient injected with 80 mL of Isovue 370. Contrast-enhanced CT of the chest was performed through the course of the pulmonary arteries with richy g and mediastinal window settings submitted. 3D reconstruction with MIP imaging was also performed. PULMONARY ARTERIES: The pulmonary arteries and their major tributaries are patent. I do not see valentín dence for sizable filling defect to suggest pulmonary embolic process. LUNGS: Irregular pleural-based infiltrate right upper lobe could reflect pneumonia however neoplasm i s not excluded. PET/CT correlation is recommended. There has been progression since prior examination . There is bronchial wall thickening which may reflect underlying bronchitis. MEDIASTINUM: Thoracic aorta is of normal caliber. There is evidence of mild cardiomegaly. No evidenc e for mediastinal mass. Subcarinal adenopathy measuring 2 cm. There is evidence of right paratracheal adenopathy measuring 1.7 cm in short axis. AP window adenopathy measuring 1.5 cm. HILAR STRUCTURES: No evidence for mass. Right hilar adenopathy measuring 1.6 cm. UPPER ABDOMEN: There is thickening of the left adrenal gland which may reflect hyperplasia however un derlying lesion is not excluded. IMPRESSION: 1. No evidence for Pulmonary embolism at this time. 2.Irregular pleural-based infiltrate right upper lobe could reflect pneumonia however neoplasm is not excluded. PET/CT correlation is recommended. There has been progression since prior examination. 3. Right hilar and mediastinal adenopathy.
[2022-09-14 15:03] VITALS: BP 129/85; PULSE 101; RESP 18; TEMP 98.3
== END 2022-09-14 15:03 | disposition home or self-care (01) ==
LOC: EC 10:56
DX: J18.9 Pneumonia, unspecified organism (principal); R91.8 Other nonspecific abnormal finding of lung field; I25.5 Ischemic cardiomyopathy; I48.91 Unspecified atrial fibrillation; J44.9 Chronic obstructive pulmonary disease, unspecified; E11.9 Type 2 diabetes mellitus without complications; I10 Essential (primary) hypertension; G47.30 Sleep apnea, unspecified; E07.9 Disorder of thyroid, unspecified; E78.5 Hyperlipidemia, unspecified; F17.200 Nicotine dependence, unspecified, uncomplicated; Z86.73 Personal history of transient ischemic attack (TIA), and cerebral infarction without residual deficits; Z79.4 Long term (current) use of insulin; Z79.890 Hormone replacement therapy; Z79.899 Other long term (current) drug therapy; Z79.01 Long term (current) use of anticoagulants; Z20.822 Contact with and (suspected) exposure to COVID-19
CPT/HCPCS: 36415; 94640; 93005; 85379; 80048; 84484; 85025; 87636; 71046; 71275; 99285; 96374; J1100; Q9967

== ENCOUNTER → 2023-04-22 | Outpatient (CLI) | payer OTHER ==
[2023-04-22 12:21] LABS: African American GFR (CKD) 77 (>60 ml/min/1.73 sqM); Blood Urea Nitrogen 33 mg/dL (9-20); Non-African American GFR(CKD) 67 (>60 ml/min/1.73 sqM)
--- NOTE | 2023-04-22 12:59 | CT ---
EXAMINATION TYPE: CT chest w con DATE OF EXAM: 04/22/2023 COMPARISON: 09/14/2022, PET/CT 10/12/2022 HISTORY: f/u lung cancer CT DLP: 584 mGycm, Automated exposure control for dose reduction was used. CONTRAST: Performed injected with 100 mL of Isovue 300. TECHNIQUE: Axial images were obtained at 5 mm thick sections. Reconstructed images are reviewed on [facility] computer in the coronal plane. FINDINGS: Portion of the thyroid visualized is normal. There is a consolidation in the peripheral right upper lung field. This is changed in appearance from the comparison. This currently measures approximately 6.0 x 3.1 cm which is larger than comparison. This appears densest against the pleural margin. Pneumonia and neoplasm within the differential. No enlarged mediastinal or hilar adenopathy is evident. Small shotty lymph nodes are present within [facility] mediastinum. The ascending aorta diameter at the level of the main pulmonary artery is 3.4 cm. [facility] main pulmonary artery diameter at the bifurcation is 2.[address] sections are obtained through the upper abdomen. Renal cysts are evident on the right kidn ey. There is mild diffuse thickening of the left adrenal gland measuring 1.4 cm. This was present pre viously and correlates with the neoplasm based on the PET scan.. IMPRESSION: 1. Increasing consolidation peripheral right upper lung field relates with prior neoplasm. Findings a re worsened from the PET/CT 10/12/2022
== END | disposition home or self-care (01) ==
LOC: RADCTMAIN 11:22
PROVIDERS: ATTEND Radiology Radiation Oncology
DX: C34.11 Malignant neoplasm of upper lobe, right bronchus or lung (principal)
CPT/HCPCS: 82565; 84520; 71260; 36415; Q9967

== ENCOUNTER 2023-06-11 05:41 | Day surgery (SDC) | payer OTHER ==
[2023-06-11] MEDS ORDERED: ALPRAZolam 0.5 MG TAB PO PRN (05:53)
[2023-06-11] MEDS ORDERED: NITROGLYCERIN SL TABS 0.4 MG TAB SUBLINGUAL PRN (05:53)
[2023-06-11] MEDS ORDERED: ASPIRIN 325 MG TAB PO STA (05:53)
[2023-06-11] MEDS ORDERED: ALPRAZolam 0.25 MG TAB PO PRN (05:53)
[2023-06-11] MEDS ORDERED: METOPROLOL SUCCINATE (ER) 50 MG TAB.ER.24H PO STA (06:11)
[2023-06-11] MEDS: SODIUM CHLORIDE 0.9% 1,000 ML in EMPTY BAG 1 BAG IV SCH (06:26)
[2023-06-11 06:30] LABS: Glucose,Whole Blood 97 mg/dL (70-110)
[2023-06-11 06:40] VITALS: TEMP 97.9
[2023-06-11 06:50] LABS: Prothrombin Time 11.1 sec (10.0-12.5)
[2023-06-11] MEDS: AMIODARONE 100 MG TAB PO STA (06:57)
[2023-06-11 06:58] LABS: Potassium 4.2 mmol/L (3.5-5.1)
[2023-06-11] MEDS: SACUBITRIL/VALSARTAN 24 MG-26 MG TABLET PO SCH (06:58)
[2023-06-11 06:59] LABS: African American GFR (CKD) 63 (>60 ml/min/1.73 sqM); Anion Gap 7 mmol/L; Blood Urea Nitrogen 29 mg/dL (9-20); Calcium 9.1 mg/dL (8.4-10.2); Carbon Dioxide 27 mmol/L (22-30); Chloride 102 mmol/L (98-107); Glucose 99 mg/dL (74-99); Non-African American GFR(CKD) 55 (>60 ml/min/1.73 sqM); Sodium 136 mmol/L (137-145)
[2023-06-11 07:17] LABS: Basophils % (A) 0 %; Eosinophils # (A) 0.1 k/uL (0-0.7); Eosinophils % (A) 1 %; HCT 44.8 % (39.0-53.0); HGB 14.6 gm/dL (13.0-17.5); Lymphocytes # (A) 1.9 k/uL (1.0-4.8); Lymphocytes % (A) 24 %; MCHC 32.6 g/dL (31.0-37.0); MCV 92.1 fL (80.0-100.0); Mean Platelet Volume 8.8; Monocytes # (A) 0.6 k/uL (0-1.0); Monocytes % (A) 7 %; Neutrophils # (A) 5.1 k/uL (1.3-7.7); Neutrophils % (A) 64 %; Platelet Count 259 k/uL (150-450); RBC 4.87 m/uL (4.30-5.90); RDW 14.3 % (11.5-15.5); WBC 7.9 k/uL (3.8-10.6)
[2023-06-11] MEDS ORDERED: HEPARIN SODIUM 1,000 UN/ML (10ML VL) ONE (07:17)
[2023-06-11] MEDS ORDERED: VERAPAMIL 2.5 MG/ML 2 ML AMP ONE (07:17)
[2023-06-11] MEDS ORDERED: LIDOCAINE 1% INJ 10MG/ML (20 ML MDV) ONE (07:17)
[2023-06-11] MEDS: LIDOCAINE 2% INJ 20 MG/ML SQ ONE (07:32)
[2023-06-11] MEDS: VERAPAMIL SYRINGE (5 MG/10 ML) INTRAARTER ONE (07:32)
[2023-06-11] MEDS ORDERED: niCARdipine 25 MG/10 ML VIAL ONE (07:37)
[2023-06-11] MEDS: MIDAZOLAM 2 MG/2 ML VIAL IVP ONE ×2 (07:43→07:49)
[2023-06-11] MEDS: HEPARIN SODIUM 1,000 UN/ML (10ML VL) IVP ONE (07:47)
[2023-06-11] MEDS: IOPAMIDOL-370 100ML BTL INTRATHECA ONE (08:07)
[2023-06-11] MEDS ORDERED: RX INFO: IV CONTRAST WAS GIVEN 1 EACH MISC MISCELLANE PRN ×2 (08:09→08:50)
[2023-06-11] MEDS ORDERED: SODIUM CHLORIDE 0.9% 1,000 ML IV SCH ×2 (08:15→09:00)
--- NOTE | 2023-06-11 08:19 | P.PCN ---
Date of Procedure: 06/11/23 Operative Findings: CARDIAC CATHETERIZATION PERFORMING PHYSICIAN: Kevin Nunez MD, RPVI PROCEDURE PERFORMED: 1. Selective right and left coronary angiogram 2. Left heart catheterization 3. IFR of the left circumflex coronary artery 4. Ultrasound-guided access of the right radial artery INDICATION: Symptomatic 73-year-old gentleman who underwent myocardial perfusion imaging stress test came in to be abnormal showing at least moderate area of ischemia in the inferolateral segment of the LV. The patient does have history of coronary artery disease with prior stenting of the RCA as well as hypertension and dyslipidemia and cardiomyopathy COMPLICATION: None APPROACH: Right radial artery LEVEL OF SEDATION: Moderate with a sedation length of 21 minutes PROCEDURE DESCRIPTION: After obtaining an informed consent, the patient was brought to cardiac minilab operator. Local anesthesia was performed using lidocaine subcutaneously. The right radial artery was cannulated using Seldinger technique, the guidewire passed easily, following that we advanced a 5-Latvian sheath dilator assembly, the wire and dilator were removed and sheath was flushed. Following that, 2 mg of verapamil along with 5000 unit heparin were given. Selective right and left coronary angiogram using a 6-Latvian JR4 and JL 3.5 catheters. Left heart catheterization was performed using the JL 3.5 catheter which crossed the aortic valve. After that I decided to do Doppler wire measurement of the left circumflex. Anticoagulation was initiated using heparin with continuous ACT monitoring. After zeroing the Doppler wire and equalized in between the Doppler wire and guiding catheter which was JL 3.5 guiding catheter the left main was engaged and the left circumflex was wired. Subsequently we did an IFR and that came in to be at 0.96. The procedure was completed there was no complication. SELECTIVE CORONARY ANGIOGRAM: The right coronary artery: Large-caliber vessel and a dominant vessel. The RCA is stented in the proximal and midportion and the stent is patent. Left main: Has mild disease only. Bifurcates into an LCx and LAD The left circumflex: Large-caliber vessel nondominant vessel. The LCx proximally has intermediate lesion appears to be in the range of 50% the lesion documented to be nonflow li miting by Doppler wire with IFR of 0.96 The left anterior descending artery: Large-caliber vessel. The LAD has mild disease only. Gives rise into a large leg branch which seems to be normal. HEMODYNAMICS: LVEDP was 10 mmHg with no significant gradient across aortic valve CONCLUSION: 1. Patent stent in the right coronary 2. Intermediate lesion involving the proximal left circumflex coronary artery documented to be nonflow limiting by Doppler wire 3. Normal left-sided filling pressure POSTPROCEDURE MANAGEMENT: Medical treatment
--- NOTE | 2023-06-11 08:53 | P.PCN ---
Date of Procedure: 06/11/23 Operative Findings: CARDIAC CATHETERIZATION PERFORMING PHYSICIAN: Kevin Nunez MD, RPVI PROCEDURE PERFORMED: 1. Selective right and left coronary angiogram 2. Ultrasound-guided access of the right radial artery INDICATION: Symptomatic 73-year-old female patient who underwent stress test and that came in to be abnormal showing ischemia COMPLICATION: None APPROACH: Right radial artery LEVEL OF SEDATION: Moderate with a sedation length of 12 minutes PROCEDURE DESCRIPTION: After obtaining an informed consent, the patient was brought to cardiac laborer fryer farm. Local anesthesia was performed using lidocaine subcutaneously. The right radial artery was cannulated using Seldinger technique, the guidewire passed easily, following that we advanced a 5-Greenlandic sheath dilator assembly, the wire and dilator were removed and sheath was flushed. Following that, 2 mg of verapamil along with 5000 unit heparin were given. Selective right and left coronary angiogram using a 6-Greenlandic JR4 and JL 3.5 catheters. The procedure was completed there was no complication. SELECTIVE CORONARY ANGIOGRAM: The right coronary artery: Large-caliber vessel and a dominant vessel with mild disease only Left main: Calcified with mild disease only The left circumflex: Large-caliber vessel and codominant vessel with mild disease only. Gives rise into the first and second obtuse marginal branches and they are normal. Distally gives a PDA which also appears to be normal The left anterior descending artery: Large-caliber vessel with mild disease only. Gives rise into the first and second diagonal branches and they appear to be normal CONCLUSION: 1. Mild nonobstructive coronary artery disease POSTPROCEDURE MANAGEMENT: Medical treatment
[2023-06-11 10:46] VITALS: RESP 17
[2023-06-11 11:56] VITALS: BP 146/65; PULSE 49
== END 2023-06-11 12:20 | disposition home or self-care (01) ==
LOC: CATHCVL 05:41
PROVIDERS: ATTEND Internal Medicine Interventional Cardiology
DX: I25.10 Atherosclerotic heart disease of native coronary artery without angina pectoris (principal); I10 Essential (primary) hypertension; E78.5 Hyperlipidemia, unspecified; E11.9 Type 2 diabetes mellitus without complications; F17.210 Nicotine dependence, cigarettes, uncomplicated; J44.9 Chronic obstructive pulmonary disease, unspecified; I48.21 Permanent atrial fibrillation; Z95.810 Presence of automatic (implantable) cardiac defibrillator; I25.5 Ischemic cardiomyopathy; Z79.82 Long term (current) use of aspirin; Z79.899 Other long term (current) drug therapy
CPT/HCPCS: 93458; 93799; 76937; 80048; 85025; 85610; C1887; C1769 ×2; C1894; J2001; J2250; J1644; Q9967; 93454

== ENCOUNTER 2023-06-20 00:34 | Emergency (ER) | payer OTHER, MEDICARE ==
--- NOTE | 2023-06-20 00:57 | ED ---
General Adult HPI - General Chief complaint: Shortness of Breath Stated complaint: Difficulty Breathing Time Seen by Provider: 06/20/23 00:35 Source: patient Mode of arrival: ambulatory Limitations: no limitations - History of Present Illness Initial comments: Dictation was produced using [employer] dictation software. please excuse any grammatical, word or spelling errors. Chief Complaint: 73-year-old male presents with chest pain History of Present Illness: Patient 73-year-old male who presents to the emergency department chest pain. Last week Saturday he had a cardiac catheterization that identified coronary artery disease. No stents were placed at that time. Since procedure patient has had sharp chest pain that is noticeable when he coughs. Denies any pain at rest. States that is sharp to the right anterior chest. Patient takes anticoagulation medications. Takes Coumadin. Has not missed any doses recently. He called his cardiology r egarding his symptoms on Saturday and was told to come to the ER for CAT scan or patient refused and preferred to wait. The ROS documented in this emergency department record has been reviewed and con firmed by me. Those systems with pertinent positive or negative responses have been documented in the HPI. All other systems are other negative and/or noncontributory. - Related Data Home Medications Medication Instructions Recorded Confirmed Atorvastatin [Lipitor] 80 mg PO HS 08/11/16 06/05/23 Insulin Glargine [Lantus Vial] 35 unit SQ HS 07/18/17 06/11/23 Sacubitril/Valsartan [Entresto 24 1 tab PO BID 07/18/17 06/05/23 mg-26 mg Tablet] Amiodarone [Cordarone] 100 mg PO DAILY 05/30/21 06/05/23 Levothyroxine Sodium [Synthroid] 50 mcg PO QAM 05/30/21 06/05/23 Metoprolol Succinate [Toprol XL] 150 mg PO DAILY 09/14/22 06/05/23 Omeprazole [PriLOSEC] 20 mg PO DAILY 09/14/22 06/05/23 Semaglutide [Ozempic] 0.25 mg SQ TH 09/14/22 06/11/23 Aspirin 81 mg PO DAILY 06/05/23 06/11/23 Enzalutamide [Xtandi] 40 mg PO DAILY 06/05/23 06/05/23 Previous Rx's Medication Instructions Recorded Furosemide [Lasix] 40 mg PO BID@0900,1600 #60 tab 04/17/17 Allergies Allergy/AdvReac Type Severity Reaction Status Date / Time No Known Allergies Allergy Verified 06/20/23 00:40 Review of Systems ROS Statement: Those systems with pertinent positive or pertinent negative responses have been documented in the HPI. ROS Other: All systems not noted in ROS Statement are negative. Past Medical History Past Medical History: Atrial Fibrillation, Cancer, Heart Failure, COPD, CVA/TIA, Diabetes Mellitus, Eye Disorder, GI Bleed, Hyperlipidemia, Hypertension, Myocar dial Infarction (DE), Osteoarthritis (OA), Pneumonia, Prostate Disorder, Sleep Apnea/CPAP/BIPAP, Thyroid Disorder, Vascular Disorder Additional Past Medical History / Comment(s): IDDM type II, CVAs X2 with L leg weakness , carotid disease, afib with RVR, ischemic cardiomyopathy, vtach, SSS with pacer, silent DE per echocardiogram, chronic CHF, tracheobronchitis, lower GI bleed post colonoscopy/polypectomy, HUDSON-no longer wears device, mild arthritis multiple joints, bilateral eyes with starting of cataracts and glaucoma. "2 spots on lung had radiation in Dec 2020". bladder cancer- tx from DR Chase. hold med in bladder. prostate cancer.- on pills for tx Last Myocardial Infarction Date:: ? History of Any Multi-Drug Resistant Organisms: None Reported Past Surgical History: AICD, Appendectomy, Heart Catheterization With Stent, Pacemaker Additional Past Surgical History / Comment(s): EPS-told needed VT ablation but decided not to have done, dual pacer/defibrillator, PCIs with total of 3 stents- done at [facility], colonoscopies/benign polypectomies. Past Anesthesia/Blood Transfusion Reactions: No Reported Reaction, Motion Si ckness Date of Last Stent Placement:: 3 STENTS LAST ONE ABOUT 4-5 YEARS AGO AT THE [facility] in [place] Type of Cardiac Device: Permanent Pacemaker, AICD Device Placement Date:: 08/14/16 Past Psychological History: PTSD Smoking Status: Current every day smoker Past Alcohol Use History: None Reported Past Drug Use History: None Reported - Past Family History Mother Family Medical History: Congestive Heart Failure (CHF) General Exam - General Exam Comments Initial Comments: PHYSICAL EXAM: General Impression: Alert and oriented x3, not in acute distress HEENT: Normocephalic atraumatic, extra-ocular movements intact, pupils equal and reactive to light bilaterally, mucous membranes moist. Cardiovascular: Heart regular rate and rhythm Chest: Able to complete full sentences, no retractions, no tachypnea Abdomen: abdomen soft, non-tender, non-distended, no organomegaly Musculoskeletal: Pulses present and equal in all extremities, no peripheral edema Motor: no focal deficits noted Neurological: CN II-XII grossly intact, no focal motor or sensory deficits noted Skin: Intact with no visualized rashes Psych: Normal affect and mood Limitations: no limitations Course Vital Signs 06/20/23 06/20/23 06/20/23 00:38 01:25 01:31 Temperature 98.2 F Pulse Rate 65 Respiratory 20 Rate Blood Pressure 131/60 O2 Sat by Pulse 93 L 85 L 91 L Oximetry 06/20/23 06/20/23 06/20/23 01:47 02:06 02:54 Temperature Pulse Rate 56 L 58 L Respiratory 18 18 Rate Blood Pressure 136/63 141/64 O2 Sat by Pulse 94 L 93 L 93 L Oximetry EKG Findings - EKG Comments: EKG Findings:: My EKG interpretation: Ventricular rate 62, sinus rhythm, SC interval 203, cures 90, QTc 418. No SC prolongation, no QTC prolongation, no ST or T-wave changes noted. Overall, this EKG is unremarkable Medical Decision Making - Medical Decision Making Was pt. sent in by a medical professional or institution (, PA, CREEL CLEANER, urgent care, hospital, or intermediate...) When possible be specific @ -No Did you speak to anyone other than the patient for history (EMS, parent, family, police, friend...)? What history was obtained from this source @ -No Did you review nursing and triage notes (agree or disagree)? Why? @ -I reviewed and agree with nursing and triage notes Were old charts reviewed (outside hosp., previous admission, EMS record, old EKG, old radiological studies, urgent care reports/EKG's, intermediate records)? Report findings @ -Previous CT angiography from last year and PET/CT was reviewed showing evidence of spiculated consolidation that radiology stated with scarring Differential Diagnosis (chest pain, altered mental status, abdominal pain women, abdominal pain men, vaginal bleeding, musculoskeletal, weakness, fever, dyspnea, syncope, headache, dizziness, GI bleed, back pain, seizure, CVA, palpatations, mental health)? @ -Differential Chest Pain: Stable Angina, Unstable Angina, STEMI, NSTEMI Aortic Dissection, Pneumothorax, Musculoskeletal, Esophageal Spasm GERD, Cholecystitis, Pancreatitis, Zoster, this is not meant to be an all-inclusive list. EKG interpreted by me (3pts min.). @ -See above X-rays interpreted by me (1pt min.). @ -Chest x-ray shows no acute processes CT interpreted by me (1pt min.). @ -CT angiography shows perhaps may be some slight worsening of consolidation in the right upper chest U/S interpreted by me (1pt. min.). @ -None done What testing was considered but not performed or refused? (CT, X-rays, U/S, labs)? Why? @ -None What meds were considered but not given or refused? Why? @ -None Did you discuss the management of the patient with other professionals (professionals i.e. , PA, CREEL CLEANER, lab, RT, psych nurse, director social, word processing supervisor, teacher, corporate responsibility officer, caser up)? Give summary @ -No Was smoking cessation discussed for >3mins.? @ -yes Was critical care preformed (if so, how long)? @ -No Were there social determinants of health that impacted care today? How? (Homelessness, low income, unemployed, alcoholism, drug addiction, transportation, low edu. Level, literacy, decrease access to med. care, detention, rehab)? @ -No Was there de-escalation of care discussed even if they declined (Discuss DNR or withdrawal of care, Hospice)? DNR status @ -No What co-morbidities impacted this encounter? (DM, HTN, Smoking, COPD, CAD, Cancer, CVA, ARF, Chemo, Hep., AIDS, mental health diagnosis, sleep apnea, morbid obesity)? @ -None Was patient admitted / discharged? Hospital course, mention meds given and route, prescriptions, significant lab abnormalities, going to OR and other pertinent info. @ -73-year-old male presents emergency department with atypical chest pain. His pain is described as sharp pain that present when he coughs. Patient does not have any symptoms of pressure radiates down the arm to the jaw no associated diaphoresis shortness of breath or diaphoresis. He has known coronary artery disease. Vital signs stable. EKG is unremarkable. Laboratory evaluation within acceptable limits. CT angiography is negative for PE. Patient will be discharged advised follow-up with primary care doctor. Smoking cessation discussed for greater than 3 minutes. Undiagnosed new problem with uncertain prognosis? @ -No Drug Therapy requiring intensive monitoring for toxicity (Heparin, Nitro, Insulin, Cardizem)? @ -No Were any procedures done? @ -No Diagnosis/symptom? Acute, or Chronic, or Acute on Chronic? Uncomplicated (without systemic symptoms) or Complicated (systemic symptoms)? @ -Pleurisy Side effects of treatment? @ -No Exacerbation, Progression, or Severe Exacerbation? @ -No Poses a threat to life or bodily function? How? (Chest pain, USA, DE, pneumonia, PE, COPD, DKA, ARF, appy, cholecystitis, CVA, Diverticulitis, Homicidal, Suicidal, threat to staff... and all critical care pts) @ -No - Lab Data Result diagrams: 06/20/23 01:03 06/20/23 01:03 Lab Results 06/20/23 06/20/23 06/20/23 Range/Units 01:03 01:03 01:03 WBC 10.2 (3.8-10.6) k/uL RBC 4.17 L (4.30-5.90) m/uL Hgb 12.5 L (13.0-17.5) gm/dL Hct 38.9 L (39.0-53.0) % MCV 93.3 (80.0-100.0) fL MCH 30.0 (25.0-35.0) pg MCHC 32.1 (31.0-37.0) g/dL RDW 14.2 (11.5-15.5) % Plt Count 240 (150-450) k/uL MPV 8.4 Neutrophils % 73 % Lymphocytes % 16 % Monocytes % 7 % Eosinophils % 1 % Basophils % 0 % Neutrophils # 7.4 (1.3-7.7) k/uL Lymphocytes # 1.6 (1.0-4.8) k/uL Monocytes # 0.7 (0-1.0) k/uL Eosinophils # 0.1 (0-0.7) k/uL Basophils # 0.0 (0-0.2) k/uL PT (10.0-12.5) sec INR (<1.2) APTT (22.0-30.0) sec Sodium 140 (137-145) mmol/L Potassium 3.5 (3.5-5.1) mmol/L Chloride 110 H (98-107) mmol/L Carbon Dioxide 26 (22-30) mmol/L Anion Gap 4 mmol/L BUN 29 H (9-20) mg/dL Creatinine 1.08 (0.66-1.25) mg/dL Est GFR (CKD-EPI)AfAm 78 (>60 ml/min/1.73 sqM) Est GFR (CKD-EPI)NonAf 67 (>60 ml/min/1.73 sqM) Glucose 140 H (74-99) mg/dL Plasma Lactic Acid Wallace 1.4 (0.7-2.0) mmol/L Calcium 8.6 (8.4-10.2) mg/dL Magnesium 1.9 (1.6-2.3) mg/dL Total Bilirubin 0.7 (0.2-1.3) mg/dL AST 16 L (17-59) U/L ALT 9 (4-49) U/L Alkaline Phosphatase 119 (38-126) U/L Troponin I (0.000-0.034) ng/mL Total Protein 6.2 L (6.3-8.2) g/dL Albumin 3.2 L (3.5-5.0) g/dL 06/20/23 06/20/23 Range/Units 01:03 01:03 WBC (3.8-10.6) k/uL RBC (4.30-5.90) m/uL Hgb (13.0-17.5) gm/dL Hct (39.0-53.0) % MCV (80.0-100.0) fL MCH (25.0-35.0) pg MCHC (31.0-37.0) g/dL RDW (11.5-15.5) % Plt Count (150-450) k/uL MPV Neutrophils % % Lymphocytes % % Monocytes % % Eosinophils % % Basophils % % Neutrophils # (1.3-7.7) k/uL Lymphocytes # (1.0-4.8) k/uL Monocytes # (0-1.0) k/uL Eosinophils # (0-0.7) k/uL Basophils # (0-0.2) k/uL PT 12.9 H (10.0-12.5) sec INR 1.2 H (<1.2) APTT 26.8 (22.0-30.0) sec Sodium (137-145) mmol/L Potassium (3.5-5.1) mmol/L Chloride (98-107) mmol/L Carbon Dioxide (22-30) mmol/L Anion Gap mmol/L BUN (9-20) mg/dL Creatinine (0.66-1.25) mg/dL Est GFR (CKD-EPI)AfAm (>60 ml/min/1.73 sqM) Est GFR (CKD-EPI)NonAf (>60 ml/min/1.73 sqM) Glucose (74-99) mg/dL Plasma Lactic Acid Wallace (0.7-2.0) mmol/L Calcium (8.4-10.2) mg/dL Magnesium (1.6-2.3) mg/dL Total Bilirubin (0.2-1.3) mg/dL AST (17-59) U/L ALT (4-49) U/L Alkaline Phosphatase (38-126) U/L Troponin I 0.019 (0.000-0.034) ng/mL Total Protein (6.3-8.2) g/dL Albumin (3.5-5.0) g/dL Disposition Clinical Impression: Pleurisy Disposition: HOME SELF-CARE Condition: Good Instructions (If sedation given, give patient instructions): Pleurisy (ED) Is patient prescribed a controlled substance at d/c from ED?: No Referrals: [facility],Clinic [Primary Care Provider] - 1-2 days Time of Disposition: 03:25
[2023-06-20 01:03] VITALS: TEMP 98.2
[2023-06-20 01:22] LABS: Basophils % (A) 0 %; Eosinophils # (A) 0.1 k/uL (0-0.7); Eosinophils % (A) 1 %; HCT 38.9 % (39.0-53.0); HGB 12.5 gm/dL (13.0-17.5); Lymphocytes # (A) 1.6 k/uL (1.0-4.8); Lymphocytes % (A) 16 %; MCHC 32.1 g/dL (31.0-37.0); MCV 93.3 fL (80.0-100.0); Mean Platelet Volume 8.4; Monocytes # (A) 0.7 k/uL (0-1.0); Monocytes % (A) 7 %; Neutrophils # (A) 7.4 k/uL (1.3-7.7); Neutrophils % (A) 73 %; Platelet Count 240 k/uL (150-450); RBC 4.17 m/uL (4.30-5.90); RDW 14.2 % (11.5-15.5); WBC 10.2 k/uL (3.8-10.6)
--- NOTE | 2023-06-20 01:34 | XR ---
EXAM: XR Chest, 2 Views CLINICAL HISTORY: XR Reason: chest pain TECHNIQUE: Frontal and lateral views of the chest. COMPARISON: September 14, 2022 FINDINGS: Lungs: There are prominent interstitial markings throughout both lungs consistent with underlying emphysema. There is a triangular 3.5 cm density in the periphery of the right upper lobe which appears unchanged since previous suggesting scarring. No new infiltrate is identified. Pleural space: Unremarkable. No pneumothorax. Heart: Unremarkable. No cardiomegaly. Mediastinum: Unremarkable. Normal mediastinal contour. Bones/joints: Mild degenerative changes throughout the thoracic spine. No acute fracture. Vasculature: The aortic arch is mildly calcified but nondilated. Tubes, lines and devices: There is a pacing device on the left with leads running to the right heart. The heart is mildly enlarged, unchanged. Upper abdomen: There is no pneumoperitoneum under the diaphragm. IMPRESSION: There are prominent interstitial markings throughout both lungs consistent with underlying emphysema. There is a triangular 3.5 cm density in the periphery of the right upper lobe which appears unchanged since previous suggesting scarring. No new infiltrate is identified.
[2023-06-20 01:35] LABS: INR 1.2 (<1.2); Partial Thromboplastin Time 26.8 sec (22.0-30.0); Prothrombin Time 12.9 sec (10.0-12.5)
[2023-06-20 01:55] LABS: ALT 9 U/L (4-49); AST 16 U/L (17-59); African American GFR (CKD) 78 (>60 ml/min/1.73 sqM); Albumin 3.2 g/dL (3.5-5.0); Alkaline Phosphatase 119 U/L (38-126); Anion Gap 4 mmol/L; Blood Urea Nitrogen 29 mg/dL (9-20); Calcium 8.6 mg/dL (8.4-10.2); Carbon Dioxide 26 mmol/L (22-30); Chloride 110 mmol/L (98-107); Glucose 140 mg/dL (74-99); Magnesium 1.9 mg/dL (1.6-2.3); Non-African American GFR(CKD) 67 (>60 ml/min/1.73 sqM); Potassium 3.5 mmol/L (3.5-5.1); Sodium 140 mmol/L (137-145); Total Bilirubin 0.7 mg/dL (0.2-1.3); Total Protein 6.2 g/dL (6.3-8.2)
[2023-06-20 02:15] VITALS: RESP 18
--- NOTE | 2023-06-20 03:07 | CT ---
EXAM: CT Angiography Chest With Intravenous Contrast CLINICAL HISTORY: CT Reason: positive D-dimer TECHNIQUE: Axial computed tomographic angiography images of the chest with intravenous contrast. CTDI is 20.57 mGy and DLP is 360 mGy-cm. This CT exam was performed using one or more of the following dose reduction techniques: automated exposure control, adjustment of the mA and/or kV according to patient size, and/or use of iterative reconstruction technique. MIP reconstructed images were created and reviewed. COMPARISON: April 22, 2023 FINDINGS: Pulmonary arteries: The pulmonary arterial tree is well opacified with contrast. No pulmonary embolism is identified. Aorta: The thoracic aorta is mildly calcified but nondilated. There is no aneurysm or dissection. Lungs: There are emphysematous changes throughout both lungs, greatest in the upper lobes bilaterally. There is an approximately 2.5 cm thick by 7 cm long axis consolidation in the periphery of the right upper lung abutting the pleura. This is increased compared to previous. There is possible erosion of the adjacent second rib. Mild central bronchial wall thickening consistent with bronchitis or emphysema. Pleural space: Unremarkable. No significant effusion. No pneumothorax. Heart: The heart is mildly enlarged. Severe coronary calcification is present. No pericardial effusion. No evidence of RV dysfunction. Bones/joints: Mild degenerative changes throughout the spine. No spinal fracture or bone lesion. Soft tissues: Unremarkable. Lymph nodes: Unremarkable. No enlarged lymph nodes. IMPRESSION: 1. There are emphysematous changes throughout both lungs, greatest in the upper lobes bilaterally. There is an approximately 2.5 cm thick by 7 cm long axis consolidation in the periphery of the right upper lung abutting the pleura. This is increased compared to previous. There is possible erosion of the adjacent second rib. Consider PET scan or biopsy to rule out neoplasm. 2. Mild central bronchial wall thickening consistent with bronchitis or emphysema. 3. The pulmonary arterial tree is well opacified with contrast. No pulmonary embolism is identified. 4. The thoracic aorta is mildly calcified but nondilated. There is no aneurysm or dissection. 5. The heart is mildly enlarged. Severe coronary calcification is present. No pericardial effusion.
[2023-06-20 03:21] VITALS: BP 141/64; PULSE 58
== END 2023-06-20 03:35 | disposition home or self-care (01) ==
LOC: EC 00:34
DX: R09.1 Pleurisy (principal); I25.10 Atherosclerotic heart disease of native coronary artery without angina pectoris; I11.0 Hypertensive heart disease with heart failure; I50.9 Heart failure, unspecified; F17.210 Nicotine dependence, cigarettes, uncomplicated; Z95.5 Presence of coronary angioplasty implant and graft; Z79.899 Other long term (current) drug therapy; Z95.810 Presence of automatic (implantable) cardiac defibrillator; Z86.73 Personal history of transient ischemic attack (TIA), and cerebral infarction without residual deficits
CPT/HCPCS: 36415; 93005; 80053; 83605; 83735; 84484; 85025; 85610; 85730; 71046; 71275; 99406; 99285; Q9967

== ENCOUNTER → 2023-07-19 | Outpatient (CLI) | payer OTHER ==
--- NOTE | 2023-07-20 08:14 | PE ---
EXAMINATION TYPE: PET CT fusion skull to thigh DATE OF EXAM: 07/19/2023 CLINICAL INDICATION:Male, 73 years old with history of L76.34 POSTPROC SEROMA OF SKIN, SUBCU FOLLOWIN G OT; TECHNIQUE: Following the intravenous administration of 11.03 mCi of F-18 FDG, whole body images are performed from the skull base to the midthigh. Images are reviewed on the computer in the coronal, axial, and sagittal planes. Reconstructed rotating images are created on independent workstation and reviewed on the computer. A non-contrast CT is performed in conjunction with the PET scan. Glucose level 84 mg/dL CT DLP: 465 mGycm, Automated exposure control for dose reduction was used. COMPARISON: CT 06/12/2023, PET/CT 10/12/2022, FINDINGS: Mediastinal SUV mean is 2.4. Hepatic parenchyma SUV mean is 2.4. SKULL BASE AND NECK: No suspicious radiotracer activity. CHEST, MEDIASTINUM, AND HILAR REGION: No suspicious radiotracer activity. * Right upper lung consolidation changes along the periphery which have increased in size and FDG ac tivity compared to prior on 10/12/2022. Measuring roughly 5.2 x 2.8 on today's exam exam Max SUV 10.2, previously 3.8. * Uptake near the cardiac conduction crossing under the left clavicle max SUV 6.3. ABDOMEN AND PELVIS: * There is some FDG activity along the anterior abdominal wall subcutaneous tissues. Max SUV 8.5, pr eviously 5.0 on the left. The activity in the right is seen to decrease but there is nonfocal uptake in the rectus abdominis muscle max SUV 7.0. * Uptake within the left buttocks somewhat linear max SUV 7.3. MUSCULOSKELETAL STRUCTURES: May be small focus of uptake within the right rib 2 Near site of consolidation max SUV 4.7. Bony muñoz ges are also present. Findings are new from 10/12/2022 and similar to 06/20/2023. OTHER CT: Moderate calcified plaque bilateral carotid bifurcations. Deviated right nasal septum max are sinuses are relatively clear on this exam. There is cardiomegaly with cardiac conduction device. There is coronary artery calcification and/or stents in the right coronary and left circumflex distri bution. Mild cardiomegaly. Moderate to severe calcified plaque of the common iliac arterial vessels. IMPRESSION: 1. Increased consolidation and radiotracer uptake within the right upper lung along the periphery. N ow with FDG activity above. Would be expected for infectious/inflammatory process most pronounced mor e posteriorly. Findings concerning for recurrence with superimposed infectious/inflammatory process t hought also to be present. 2. Abnormal uptake within the adjacent right second rib possibly representing osseous metastatic dis ease. Prior exam on 10/12/2022 and similar to 06/12/2023 3. FDG activity within the subcutaneous tissues of the lower anterior abdomen which is increase in F DG activity compared to prior etiology is uncertain. There are some streaky soft tissue in the underl loki fat noted. Fines could represent medicine injection changes. 4. Somewhat linear uptake within the left buttock correlate with recent intervention.
== END | disposition home or self-care (01) ==
LOC: RADPETMAIN 13:44
PROVIDERS: ATTEND Radiology Radiation Oncology
DX: C34.11 Malignant neoplasm of upper lobe, right bronchus or lung (principal); J44.9 Chronic obstructive pulmonary disease, unspecified; L76.34 Postprocedural seroma of skin and subcutaneous tissue following other procedure; Z08 Encounter for follow-up examination after completed treatment for malignant neoplasm; Z92.3 Personal history of irradiation
CPT/HCPCS: 78815; A9552

== ENCOUNTER 2023-09-03 08:33 | Day surgery (SDC) | payer MEDICARE ==
[2023-09-03] MEDS ORDERED: HYDROmorphone 0.5 MG/0.5 ML SYRINGE IVP PRN (08:52)
[2023-09-03 09:24] LABS: Mean Platelet Volume 8.3; Platelet Count 203 k/uL (150-450)
[2023-09-03 09:31] LABS: INR 1.1 (<1.2); Prothrombin Time 11.7 sec (10.0-12.5)
[2023-09-03] MEDS: ALPRAZolam 0.25 MG TAB PO STA (09:35)
[2023-09-03 09:53] VITALS: PULSE 50; TEMP 97.6
--- NOTE | 2023-09-03 11:05 | XR ---
EXAMINATION TYPE: XR chest 1V DATE OF EXAM: 09/03/2023 COMPARISON: 06/12/2023 HISTORY: Post right lung biopsy TECHNIQUE: Single frontal view of the chest is obtained. FINDINGS: No sizable pneumothorax. Emphysematous changes with cardiac device is noted. Atherosclerot ic change aorta. Diffuse osteopenia and arthropathy of the shoulders. No overt failure. No focal pneu monia. Irregular area of consolidation or mass in the right upper lobe stable. IMPRESSION: No sizable pneumothorax.
--- NOTE | 2023-09-03 12:02 | CT ---
EXAMINATION TYPE: CT biopsy lung RT DATE OF EXAM: 09/03/2023 COMPARISON: 06/20/2023 HISTORY: RUL neoplasm CT DLP: 2274 mGycm The procedure is discussed with the patient, the risks, complications, benefits and alternatives, wer e discussed and any questions were answered. Informed consent was obtained. The patient is placed p maddie on the CT table, prepped and draped in the usual sterile fashion. Utilizing a 18-gauge core biopsy needle access into the right upper lobe mass was achieved with two p asses performed. Pathology pending. All elements of maximal barrier and sterile technique were util ized. The patient remained stable throughout the procedure with no immediate postprocedural complica tion. IMPRESSION: 1. Successful CT guided core biopsy of a right upper lobe lung mass
--- NOTE | 2023-09-03 13:12 | XR ---
EXAMINATION TYPE: XR chest 1V portable DATE OF EXAM: 09/03/2023 COMPARISON: 09/03/2023 HISTORY: Postlung biopsy TECHNIQUE: Single frontal view of the chest is obtained. FINDINGS: No sizable pneumothorax. Emphysematous changes with cardiac device is noted. Atherosclerot ic change aorta. Diffuse osteopenia and arthropathy of the shoulders. No overt failure. No focal pneu monia. Irregular area of consolidation or mass in the right upper lobe stable. IMPRESSION: No sizable pneumothorax.
[2023-09-03 13:48] VITALS: RESP 16
[2023-09-03 13:52] VITALS: BP 111/56
== END 2023-09-03 13:23 | disposition home or self-care (01) ==
LOC: RADPROMAIN 08:33
PROVIDERS: ATTEND Radiology Radiation Oncology
DX: J44.9 Chronic obstructive pulmonary disease, unspecified (principal)
CPT/HCPCS: 32408; 36415; 71045; 82947; 85049; 85610; 88305

== ENCOUNTER → 2023-11-04 | Outpatient (CLI) | payer OTHER ==
--- NOTE | 2023-11-28 09:19 | CT ---
Patient Radames Olson ID [id number] Order # EXAMINATION TYPE: CT chest wo/w con DATE OF EXAM: 11/06/2023 COMPARISON: No comparison on downtime PACS. Comparison is made with the written chest CT report dated 04/22/2023 and the PET/CT report dated 07/19/2023. Comparison images are unavailable at this time. HISTORY: Malignant neoplasm upper lobe CT DLP: 568 mGycm, Automated exposure control for dose reduction was used. CONTRAST: Performed injected with 100 mL of Isovue 300. TECHNIQUE: Axial images were obtained at 5 mm thick sections. Reconstructed images are reviewed on [employer] computer in the coronal plane. FINDINGS: Portion of the thyroid visualized is normal. Emphysematous changes are present throughout the lung avalos. There is increased lung markings in the lateral right upper lobe estimated to measure 6.1 x 3.0 cm. S eries 3 image 17. Previous measurements 5.2 x 2.8 cm on PET/CT 07/19/2023. Measurement 04/22/2023 was 6 .0 x 3.1 cm. No enlarged mediastinal or hilar adenopathy is evident. There are several small lymph nodes measurin g up to 0.9 cm in size. The ascending aorta diameter at the level of the main pulmonary artery is 3.3 cm. The main pulmonary artery diameter at the bifurcation is 2.[address] sections are obtained through the upper abdomen. Left adrenal gland is slightly thickened with a transverse dimension of 1.4 cm. This measurement is stable from the 04/22/2023 CT report. Some subtle hypodensity may be more central. Metastatic lesion should be considered. IMPRESSION: 1. Right upper lobe ill-defined density lateral right apex may be slightly larger than the comparison measurements. 2. Suspicious although stable left adrenal gland, metastasis not excluded at this time.
== END | disposition home or self-care (01) ==
LOC: RADCTMAIN 09:10
PROVIDERS: ATTEND Radiology Radiation Oncology
DX: C34.11 Malignant neoplasm of upper lobe, right bronchus or lung (principal); J44.9 Chronic obstructive pulmonary disease, unspecified; J98.4 Other disorders of lung; Z08 Encounter for follow-up examination after completed treatment for malignant neoplasm; Z92.3 Personal history of irradiation
CPT/HCPCS: 71260

== ENCOUNTER → 2024-06-12 | Outpatient (CLI) | payer OTHER ==
--- NOTE | 2024-06-12 14:27 | US ---
EXAMINATION TYPE: US arterial LE single level DATE OF EXAM: 06/12/2024 2:07 PM COMPARISONS: US 2017 CLINICAL INDICATION: Male, 74 years old with history of I73.9 PERIPHERAL VASCULAR DISEASE, UNSPECIFIE D; TECHNIQUE: Systolic pressures were taken of the upper and lower extremity arteries with ankle-brachia l indices. History of: Smoker: Current Hypertension: Yes Diabetic: Yes Hyperlipidemia: Yes TIA/CVA: Yes Previous Vascular Surgery: Yes [place]: Yes Vascular Ulcers: No Claudication: No Gangrene: No FINDINGS: Doppler Waveforms: Right: Left: Brachial Artery systolic pressure: Right: 171 Left: 164 Posterior Tibial artery systolic pressure: Right: CNO Left: CNO Dorsalis Pedis artery systolic pressure: Right: CNO Left: CNO Ankle-Brachial Indices: Right: CNO Left: CNO IMPRESSION: Nondiagnostic study [facility], , 06/12/2024 2:25 PM
== END | disposition home or self-care (01) ==
LOC: RADUSWWP 13:19
PROVIDERS: ATTEND Family Medicine
DX: I73.9 Peripheral vascular disease, unspecified (principal)
CPT/HCPCS: 93922